=== PATIENT | male | born 1975 | race Caucasian/White ===

== ENCOUNTER 2017-05-18 11:59 | Inpatient (IN) | payer MEDICARE, MEDICAID ==
[~2017-05-18] VITALS: Ht 182.9 cm; Wt 100.7 kg
[2017-05-18] MEDS ORDERED: KEYT1SOL IV (12:11)
[2017-05-18] MEDS ORDERED: ACETAMINOPHEN TAB 650MG DOSE (2X325MG) PO ONE (12:30)
[2017-05-18] MEDS ORDERED: NS 1,000 ML IV ONE (12:30)
[2017-05-18 13:02] LABS: VENOUS BASE EXCESS 1.5 (-2.0-2.0); VENOUS O2 SATURATION 90.5 % (60.0-80.0); VENOUS PARTIAL PRESSURE CO2 40.1 mmHg (38.0-50.0); VENOUS PARTIAL PRESSURE O2 54.9 mmHg (30.0-50.0); VENOUS STANDARD HCO3 25.6 MEQ/L; VENOUS TOTAL CO2 27.1 MEQ/L (24.0-28.0)
[2017-05-18 13:09] LABS: BASO # 0.1 K/mm3 (0.0-0.2); BASO % 0.7 % (0.0-1.0); EOS # 0.1 K/mm3 (0.0-0.50); EOS % 0.6 % (0.0-3.0); LARGE UNSTAINED CELL # 0.2 K/mm3 (0.0-0.4); LARGE UNSTAINED CELL % 1.1 % (0.0-4.0); LYMPH # 1.4 K/mm3 (1.5-4.5); LYMPH % 9.2 % (24.0-44.0); MEAN CORPUSCULAR HEMOGLOBIN 29.7 pg (27.0-33.0); MEAN CORPUSCULAR HGB CONC 34.5 g/dl (32.0-36.5); MEAN CORPUSCULAR VOLUME 85.9 fl (80.0-96.0); MONO # 1.1 K/mm3 (0.0-0.8); MONO % 7.6 % (0.0-5.0); NEUTROPHILS # 11.2 K/mm3 (1.8-7.7); NEUTROPHILS % 80.8 % (36.0-66.0); PLATELET COUNT, AUTOMATED 197 k/mm3 (150-450); RED CELL DISTRIBUTION WIDTH 12.6 % (11.5-14.5); WHITE BLOOD COUNT 13.8 K/mm3 (4.0-10.0)
[2017-05-18 13:12] LABS: INR 1.07
--- NOTE | 2017-05-18 13:19 | REP ---
Clinical: Sepsis . Comparison: 01/18/2008 . Findings: The mediastinum and cardiac silhouette are stable and within normal limits for portable technique. The lung holley are clear without acute consolidation, effusion, or pneumothorax. Skeletal structures are intact. Impression: No acute cardiopulmonary process appreciated. Signed by Kirit Rizzo MD 05/18/2017 01:10 P
[2017-05-18 13:26] LABS: ALBUMIN 3.9 GM/DL (3.2-5.2); ALBUMIN/GLOBULIN RATIO 0.91 (1.00-1.93); ALKALINE PHOSPHATASE 79 U/L (45-117); ALT/SGPT 54 U/L (12-78); AMYLASE 44 U/L (25-115); ANION GAP 9 MEQ/L (8-16); AST/SGOT 15 U/L (15-37); BILIRUBIN,DIRECT 0.1 MG/DL (0.0-0.2); BILIRUBIN,TOTAL 0.6 MG/DL (0.2-1.0); BLOOD UREA NITROGEN 9 MG/DL (7-18); CARBON DIOXIDE LEVEL 26 MEQ/L (21-32); CHLORIDE LEVEL 103 MEQ/L (98-107); CREATININE FOR GFR 0.82 MG/DL (0.70-1.30); GLOMERULAR FILTRATION RATE > 60.0 (>60); GLUCOSE, FASTING 117 MG/DL (70-105); POTASSIUM SERUM 3.6 MEQ/L (3.5-5.1); SODIUM LEVEL 138 MEQ/L (136-145); TOTAL PROTEIN 8.2 GM/DL (6.4-8.2)
[2017-05-18] MEDS ORDERED: CEFEPIME HCL 2 GM in D5W MINI-BAG PLUS 50 ML IV ONE (14:00)
[2017-05-18] MEDS ORDERED: ONDANSETRON 4MG/2ML VIAL (J2405) IV PRN (16:00)
[2017-05-18] MEDS ORDERED: VANCOMYCIN HCL 750 MG, VIAL MATE ADAPTER 1 EACH in D5W 250 ML IV SCH (16:00)
--- NOTE | 2017-05-18 16:17 | HPEPDOC ---
General Date of Admission 05/18/17 Primary Care Physician: VERONA CALVILLO MD Attending Physician: ROSSI DONOHUE MD Chief Complaint The patient is a 42-year-old male admitted with a reason for visit of FEVER. History of Present Illness 42-year-old male with past medical history of glioblastoma multiforme brain cancer status post 2 craniotomies in 2011, radiation and chemotherapy. The patient was found to have a recurrence of the cancer in September 2016, and is currently on Keytruda therapy. He follows with Kole Goff and Dr. Correa for his Oncologic care. The patient presented to the ER with a chief complaint of fevers, myalgias, arthralgias, cough, and generalized weakness over the last 24 hours. The patient denies any sick contacts, or any complaints of chest pain, palpitations, shortness of breath, abdominal pain, or any nausea/vomiting/ diarrhea. He reports that his symptoms started all of a sudden last night, and denies any other acute complaints. In the ER, the patient was noted to be tachycardic with an elevated white blood cell count. Given the patient's history of cancer, and current use of immunosuppressive therapy, the patient's oncologist Dr. Correa recommended admission for infectious workup and empiric antibiotic therapy. Home Medications Scheduled (Keytruda) 50 Mg Arlene, 50 MG IV ASDIRECTED, (Reported) EVERY 3 WEEKS Allergies Coded Allergies: Temozolomide (Verified Allergy, Unknown, 05/18/17) Past Medical History Medical History As noted in HPI Surgical History BRAIN TUMOR REMOVED - GLIOBLASTOMA 10/2011 BRAIN TUMOR REMOVED - GLIOBLASTOMA 04/2012 As per PCP charting Social History * Smoker: former Smoker Alcohol: Denies Drugs: denies Review of Symptoms Other systems 10 point review of systems negative unless otherwise specified in HPI. Physical Examination General Exam: Positive: Alert, Cooperative, No Acute Distress ENT Exam: Positive: Atraumatic, Mucous membr. moist/pink Neck Exam: Negative: JVD Chest Exam: Positive: Clear to auscultation, Normal air movement Heart Exam: Positive: Tachycardic, Normal S1, Normal S2 Telemetry: Positive: Sinus Abdomen Exam: Positive: Soft, Negative: Tenderness Extremity Exam: Negative: Tenderness, Swelling Psych Exam: Positive: Oriented x 3 Vital Signs Vital Signs Date Time Temp Pulse Resp B/P (MAP) Pulse Ox O2 Delivery O2 Flow Rate FiO2 05/18/17 15:39 05/18/17 12:01 100.5 129 16 96 Room Air Laboratory Data Labs 24H Laboratory Tests 2 05/18/17 12:53: White Blood Count 13.8H, Red Blood Count 5.05, Hemoglobin 15.0, Hematocrit 43.4 , Mean Corpuscular Volume 85.9, Mean Corpuscular Hemoglobin 29.7, Mean Corpuscular Hemoglobin Concent 34.5, Red Cell Distribution Width 12.6, Platelet Count 197, Neutrophils (%) (Auto) 80.8H, Lymphocytes (%) (Auto) 9.2L, Monocytes (%) (Auto) 7.6H, Eosinophils (%) (Auto) 0.6, Basophils (%) (Auto) 0.7, Neutrophils # (Auto) 11.2H, Lymphocytes # (Auto) 1.4L, Monocytes # (Auto) 1.1H, Eosinophils # (Auto) 0.1, Basophils # (Auto) 0.1, Large Unclassified Cells % 1.1 , Large Unclassified Cells # 0.2, Prothrombin Time 14.0, Prothromb Time International Ratio 1.07, Activated Partial Thromboplast Time 28.6, Blood Gas Bicarbonate Standard 25.6, Venous Blood pH 7.428, Venous Blood Partial Pressure CO2 40.1, Venous Blood Partial Pressure O2 54.9H, Venous Blood Total Carbon Dioxide 27.1, Venous Blood HCO3 25.9, Venous Blood Oxygen Saturation 90.5H, Venous Blood Base Excess 1.5, Anion Gap 9, Glomerular Filtration Rate > 60.0, Lactic Acid Level 2.0, Calcium Level 9.0, Aspartate Amino Transf (AST/SGOT) 15, Alanine Aminotransferase (ALT/SGPT) 54, Alkaline Phosphatase 79, Total Bilirubin 0.6, Direct Bilirubin 0.1, Total Creatine Kinase 66, Creatine Kinase MB 1.0, Creatine Kinase MB Relative Index 1.51, Troponin I < 0.02, C-Reactive Protein, Quantitative 9.21H, Total Protein 8.2, Albumin 3.9, Albumin/Globulin Ratio 0.91L, Amylase Level 44 05/18/17 14:26: Urine Appearance CLEAR, Urine Color STRAW, Urine pH 6.0, Urine Specific [place] 1.005, Urine Protein NEGATIVE, Urine Glucose (UA) 1+H, Urine Ketones NEGATIVE, Urine Urobilinogen 0.2, Urine Bilirubin NEGATIVE, Urine Leukocyte Esterase NEGATIVE, Urine Blood 2+H, Urine Nitrite NEGATIVE, Urine WBC (Auto) 1, Urine RBC (Auto) 5H, Urine Hyaline Casts (Auto) 0, Urine Bacteria (Auto) NEGATIVE, Urine Squamous Epithelial Cells 0, Urine Sperm (Auto) CBC/BMP Laboratory Tests 05/18/17 12:53 Red Blood Count 5.05, Mean Corpuscular Volume 85.9, Mean Corpuscular Hemoglobin 29.7, Mean Corpuscular Hemoglobin Concent 34.5, Red Cell Distribution Width 12.6 , Neutrophils (%) (Auto) 80.8 H, Lymphocytes (%) (Auto) 9.2 L, Monocytes (%) ( Auto) 7.6 H, Eosinophils (%) (Auto) 0.6, Basophils (%) (Auto) 0.7, Neutrophils # (Auto) 11.2 H, Lymphocytes # (Auto) 1.4 L, Monocytes # (Auto) 1.1 H, Eosinophils # (Auto) 0.1, Basophils # (Auto) 0.1 Microbiology Microbiology 05/18/17 Blood Culture, Received Pending 05/18/17 Blood Culture, Received Pending 05/18/17 Urine Culture, Received Pending Plan / VTE VTE Prophylaxis Ordered?: Yes Plan Plan SIRS 2/2 Unclear Etiology in a patient with a Hx of Glioblastoma Multiforme on immunosuppressant therapy Patient noted to have an elevated white blood cell count 13.8 K, and tachycardic with a heart rate in the 120s in the ER Chest x-ray with no acute findings However, the patient is complaining of a nonproductive cough--we will order a CT scan of the chest for further delineation of possible underlying pneumonia We will order respiratory panel to rule out possible underlying viral etiology Blood cultures, sputum culture, and urine culture also ordered We will empirically cover the patient with vancomycin and cefepime We will continue to monitor the patient's progress Hx of Glioblastoma Multiforme s/p 2 Craniotomies in 2011 s/p Chemo and Radiation Recurrence of Cancer noted in September 2016 as per patient On Keytruda immunosupressant therapy as o/p Follows with Dr. Sunny Mike DVT Prophylaxis Lovenox DIONNE GUERIN MD May 18, 2017 16:17
--- NOTE | 2017-05-18 16:35 | REP ---
Clinical: Sepsis. Technique: Axial noncontrast images from the thoracic inlet to the upper abdomen with coronal and sagittal re-formations. Findings: Subtle left upper lobe alveolar infiltrates and small medial left upper lobe consolidation with associated peribronchial thickening is consistent with bronchitis and small forming pneumonia. The remainder of lung holley are well-aerated and clear. No pleural effusion. No pneumothorax. Minimally prominent mediastinal lymph nodes are likely reactive measuring up to 11 mm short axis diameter. Mediastinum demonstrates normal thoracic aorta, heart/pericardium and vasculature by noncontrast evaluation. Surrounding musculoskeletal structures are intact. Impression: Findings compatible with left upper lobe bronchitis and early pneumonia. Signed by Kirit Rizzo MD 05/18/2017 04:25 P
--- NOTE | 2017-05-18 17:16 | PHACANCOPD ---
PHARMACY VANCOMYCIN DOSING Pt Demographics Demographics Patient Age:42 , Weight:109.090 , Gender: male Adjusted Body Weight Date: 05/18/17, Adjusted Body Weight: [90.2] Kg Events Past 24 Hours Events Past 24 Hours: NO: Dialysis, Diuretic Therapy, Change in CrCl, Fever, Elevation in WBC, Pending Diagnostics, Pending Procedures, Other Vancomycin Vancomycin indication: IMMUNOCOMPROMISED, FEVER Vancomycin Target Ranges: 15-20 mcg/ml Vancomycin Load Y/N: Yes Load Dose Date Time Vancomycin Load Dose: 2000MG Date: 05/18/17 Time: 18:00 Vancomycin Dose Date: 05/18/17. Current Vancomycin Dose: [1G IV Q8H ] Intermittent Dosing?: No Labs Labs Item Value Date Time White Blood Count 13.8 K/mm3 H 05/18/17 1253 C-Reactive Protein, Quantitative 9.21 MG/DL H 05/18/17 1253 Creatinine 0.82 MG/DL 05/18/17 1253 Micro Microbiology 05/18/17 Blood Culture, Received Pending 05/18/17 Blood Culture, Received Pending 05/18/17 Urine Culture, Received Pending Creatinine Clearance Date:05/18/17. Creatinine Clearance: [127.5ML/MIN]. Pending Labs URINE AND BLOOD CULTURE PENDING Assessment and Plan Maintaining Current Dose?: Yes Reason for dose change: No Dose Change Pharmacist Note Pharmacist Note Date: 05/18/17. Pharmacist note:PT is a 42 year old male being treated with immunocompromised fever goal trough 15-20mcg/ml. Pt does not have a history of vancomycin therapy here at [facility] in the past. To achieve goal a 2g loading dose will be started 05/18/17 @18:00 and maintenance therapy will consist of 1g iv every 8 hours starting 05/19 @02:00. We will continue to monitor and adjust dose as needed. JARRET PALMA PHARMACY May 18, 2017 17:16
[2017-05-18] MEDS: ACETAMINOPHEN TAB 650MG DOSE (2X325MG) PO PRN ×2 (17:36→21:14)
[2017-05-18] MEDS: VANCOMYCIN HCL 1,000 MG, VIAL MATE ADAPTER 1 EACH in D5W 250 ML IV SCH (18:00)
--- NOTE | 2017-05-18 18:24 | ECGEPIP ---
Stationary ECG Study [facility] - ED Test Date: 2017-05-18 Pat Name: GOLDEN APPLE Department: Room: - Gender: M Pinion Staker: JT : 1975 Requested By: Brynn John Order Number: [id number] Reading MD: Brynn John Measurements Intervals [place] Rate: 116 P: 41 MO: 100 QRS: 17 QRSD: 110 T: 21 QT: 304 QTc: 423 Interpretive Statements SINUS TACHYCARDIA WITH SHORT MO INTERVAL POSSIBLE LEFT ATRIAL ENLARGEMENT POSSIBLE INFERIOR MYOCARDIAL INFARCTION, PROBABLY OLD ABNORMAL RHYTHM ECG NO PRIOR FOR COMPARISON Electronically Signed On 05-18-2017 18:24:27 EDT by Brynn John
[2017-05-18] MEDS ORDERED: VANCOMYCIN HCL 1,000 MG, VIAL MATE ADAPTER 1 EACH in D5W 250 ML IV ONE (19:00)
[2017-05-18] MEDS: NS 1,000 ML IV SCH (19:44)
[2017-05-18 22:25] VITALS: BP 144/85
[2017-05-18] MEDS ORDERED: IBUPROFEN 600 MG TAB PO PRN (22:30)
[2017-05-18] MEDS: IBUPROFEN 600 MG TAB PO PRN (22:35)
[2017-05-19] MEDS: VANCOMYCIN HCL 1,000 MG, VIAL MATE ADAPTER 1 EACH in D5W 250 ML IV SCH ×3 (01:41→17:33)
[2017-05-19] MEDS: NS 1,000 ML IV SCH (01:41)
[2017-05-19] MEDS ORDERED: CEFEPIME HCL 1 GM in D5W MINI-BAG PLUS 50 ML IV SCH (02:00)
[2017-05-19] MEDS: CEFEPIME HCL 1 GM in D5W MINI-BAG PLUS 50 ML IV SCH ×2 (02:35→13:52)
[2017-05-19 06:00] VITALS: BP 166/74
[2017-05-19 06:37] LABS: BASO # 0.1 K/mm3 (0.0-0.2); BASO % 0.7 % (0.0-1.0); EOS # 0.2 K/mm3 (0.0-0.50); EOS % 2.4 % (0.0-3.0); LARGE UNSTAINED CELL # 0.1 K/mm3 (0.0-0.4); LARGE UNSTAINED CELL % 1.3 % (0.0-4.0); LYMPH # 1.6 K/mm3 (1.5-4.5); LYMPH % 14.8 % (24.0-44.0); MEAN CORPUSCULAR HEMOGLOBIN 29.4 pg (27.0-33.0); MEAN CORPUSCULAR HGB CONC 33.9 g/dl (32.0-36.5); MEAN CORPUSCULAR VOLUME 86.6 fl (80.0-96.0); MONO # 0.7 K/mm3 (0.0-0.8); MONO % 7.2 % (0.0-5.0); NEUTROPHILS # 7.2 K/mm3 (1.8-7.7); NEUTROPHILS % 73.6 % (36.0-66.0); PLATELET COUNT, AUTOMATED 174 k/mm3 (150-450); RED CELL DISTRIBUTION WIDTH 12.7 % (11.5-14.5); WHITE BLOOD COUNT 9.8 K/mm3 (4.0-10.0)
[2017-05-19 06:54] LABS: ALBUMIN 3.1 GM/DL (3.2-5.2); ALBUMIN/GLOBULIN RATIO 0.76 (1.00-1.93); ALKALINE PHOSPHATASE 62 U/L (45-117); ALT/SGPT 38 U/L (12-78); ANION GAP 6 MEQ/L (8-16); AST/SGOT 11 U/L (15-37); BILIRUBIN,TOTAL 0.5 MG/DL (0.2-1.0); BLOOD UREA NITROGEN 10 MG/DL (7-18); CALCIUM LEVEL 8.4 MG/DL (8.5-10.1); CARBON DIOXIDE LEVEL 27 MEQ/L (21-32); CHLORIDE LEVEL 107 MEQ/L (98-107); CREATININE FOR GFR 0.69 MG/DL (0.70-1.30); GLOMERULAR FILTRATION RATE > 60.0 (>60); GLUCOSE, FASTING 109 MG/DL (70-105); MAGNESIUM LEVEL 2.2 MG/DL (1.8-2.4); POTASSIUM SERUM 3.5 MEQ/L (3.5-5.1); SODIUM LEVEL 140 MEQ/L (136-145); TOTAL PROTEIN 7.2 GM/DL (6.4-8.2)
--- NOTE | 2017-05-19 09:11 | IPNPDOC ---
Subjective Date Seen The patient was seen on 05/19/17. Subjective Chief Complaint/HPI The patient is a 42-year-old male admitted with a reason for visit of FEVER. Events since last encounter continues to have cough with yellowish expectoration , had spike of fever with a t max of 101.9 last night , no joint pain today , no diarrhea or abdominal pain , no nausea or vomiting. Objective Physical Examination General Exam: Positive: Alert, Cooperative, No Acute Distress ENT Exam: Positive: Atraumatic, Mucous membr. moist/pink Neck Exam: Negative: JVD Chest Exam: Positive: Clear to auscultation, Normal air movement Heart Exam: Positive: Tachycardic, Normal S1, Normal S2 Telemetry: Positive: Sinus Abdomen Exam: Positive: Soft, Negative: Tenderness Extremity Exam: Negative: Tenderness, Swelling Psych Exam: Positive: Oriented x 3 Assessment /Plan Problems (1) Pneumonia Status: Acute Problem Text: continue cefepime and vanco awaiting blood cultures. (2) Glioblastoma multiforme Status: Chronic Problem Text: diagnosed in 2011 treated then by surgery , RT , CT recurrence in sep 2016 on ketruda every 3 weeks, last dose on 05/08/17 Plan/VTE VTE Prophylaxis Ordered?: Yes VS, I&O, 24H, Fishbone Vital Signs/I&O Vital Signs Date Time Temp Pulse Resp B/P (MAP) Pulse Ox O2 Delivery O2 Flow Rate FiO2 05/19/17 06:00 98.9 94 18 166/74 (104) 97 05/18/17 22:25 Room Air I&O- Last 24 Hours up to 6 AM 05/19/17 06:00 Intake Total 2460 ml Output Total 350 ml Balance 2110 ml Laboratory Data 24H LABS Laboratory Tests 2 05/18/17 12:53: White Blood Count 13.8H, Red Blood Count 5.05, Hemoglobin 15.0, Hematocrit 43.4 , Mean Corpuscular Volume 85.9, Mean Corpuscular Hemoglobin 29.7, Mean Corpuscular Hemoglobin Concent 34.5, Red Cell Distribution Width 12.6, Platelet Count 197, Neutrophils (%) (Auto) 80.8H, Lymphocytes (%) (Auto) 9.2L, Monocytes (%) (Auto) 7.6H, Eosinophils (%) (Auto) 0.6, Basophils (%) (Auto) 0.7, Neutrophils # (Auto) 11.2H, Lymphocytes # (Auto) 1.4L, Monocytes # (Auto) 1.1H, Eosinophils # (Auto) 0.1, Basophils # (Auto) 0.1, Large Unclassified Cells % 1.1 , Large Unclassified Cells # 0.2, Prothrombin Time 14.0, Prothromb Time International Ratio 1.07, Activated Partial Thromboplast Time 28.6, Blood Gas Bicarbonate Standard 25.6, Venous Blood pH 7.428, Venous Blood Partial Pressure CO2 40.1, Venous Blood Partial Pressure O2 54.9H, Venous Blood Total Carbon Dioxide 27.1, Venous Blood HCO3 25.9, Venous Blood Oxygen Saturation 90.5H, Venous Blood Base Excess 1.5, Anion Gap 9, Glomerular Filtration Rate > 60.0, Lactic Acid Level 2.0, Calcium Level 9.0, Aspartate Amino Transf (AST/SGOT) 15, Alanine Aminotransferase (ALT/SGPT) 54, Alkaline Phosphatase 79, Total Bilirubin 0.6, Direct Bilirubin 0.1, Total Creatine Kinase 66, Creatine Kinase MB 1.0, Creatine Kinase MB Relative Index 1.51, Troponin I < 0.02, C-Reactive Protein, Quantitative 9.21H, Total Protein 8.2, Albumin 3.9, Albumin/Globulin Ratio 0.91L, Amylase Level 44 05/18/17 14:26: Urine Appearance CLEAR, Urine Color STRAW, Urine pH 6.0, Urine Specific [place] 1.005, Urine Protein NEGATIVE, Urine Glucose (UA) 1+H, Urine Ketones NEGATIVE, Urine Urobilinogen 0.2, Urine Bilirubin NEGATIVE, Urine Leukocyte Esterase NEGATIVE, Urine Blood 2+H, Urine Nitrite NEGATIVE, Urine WBC (Auto) 1, Urine RBC (Auto) 5H, Urine Hyaline Casts (Auto) 0, Urine Bacteria (Auto) NEGATIVE, Urine Squamous Epithelial Cells 0, Urine Sperm (Auto) 05/18/17 16:45: 05/19/17 06:17: White Blood Count 9.8, Red Blood Count 4.53, Hemoglobin 13.3L, Hematocrit 39.3L , Mean Corpuscular Volume 86.6, Mean Corpuscular Hemoglobin 29.4, Mean Corpuscular Hemoglobin Concent 33.9, Red Cell Distribution Width 12.7, Platelet Count 174, Neutrophils (%) (Auto) 73.6H, Lymphocytes (%) (Auto) 14.8L, Monocytes (%) (Auto) 7.2H, Eosinophils (%) (Auto) 2.4, Basophils (%) (Auto) 0.7 , Neutrophils # (Auto) 7.2, Lymphocytes # (Auto) 1.6, Monocytes # (Auto) 0.7, Eosinophils # (Auto) 0.2, Basophils # (Auto) 0.1, Large Unclassified Cells % 1.3 , Large Unclassified Cells # 0.1, Anion Gap 6L, Glomerular Filtration Rate > 60.0, Calcium Level 8.4L, Aspartate Amino Transf (AST/SGOT) 11L, Alanine Aminotransferase (ALT/SGPT) 38, Alkaline Phosphatase 62, Total Bilirubin 0.5, Total Protein 7.2, Albumin 3.1#L, Albumin/Globulin Ratio 0.76L, Blood Urea Nitrogen 10, Creatinine 0.69L, Sodium Level 140, Potassium Level 3.5, Chloride Level 107, Carbon Dioxide Level 27, Magnesium Level 2.2 CBC/BMP Laboratory Tests 05/18/17 12:53 Red Blood Count 5.05, Mean Corpuscular Volume 85.9, Mean Corpuscular Hemoglobin 29.7, Mean Corpuscular Hemoglobin Concent 34.5, Red Cell Distribution Width 12.6 , Neutrophils (%) (Auto) 80.8 H, Lymphocytes (%) (Auto) 9.2 L, Monocytes (%) ( Auto) 7.6 H, Eosinophils (%) (Auto) 0.6, Basophils (%) (Auto) 0.7, Neutrophils # (Auto) 11.2 H, Lymphocytes # (Auto) 1.4 L, Monocytes # (Auto) 1.1 H, Eosinophils # (Auto) 0.1, Basophils # (Auto) 0.1 05/19/17 06:17 Red Blood Count 4.53, Mean Corpuscular Volume 86.6, Mean Corpuscular Hemoglobin 29.4, Mean Corpuscular Hemoglobin Concent 33.9, Red Cell Distribution Width 12.7 , Neutrophils (%) (Auto) 73.6 H, Lymphocytes (%) (Auto) 14.8 L, Monocytes (%) ( Auto) 7.2 H, Eosinophils (%) (Auto) 2.4, Basophils (%) (Auto) 0.7, Neutrophils # (Auto) 7.2, Lymphocytes # (Auto) 1.6, Monocytes # (Auto) 0.7, Eosinophils # ( Auto) 0.2, Basophils # (Auto) 0.1, Calcium Level 8.4 L, Aspartate Amino Transf ( AST/SGOT) 11 L, Alanine Aminotransferase (ALT/SGPT) 38, Alkaline Phosphatase 62 , Total Bilirubin 0.5, Total Protein 7.2, Albumin 3.1 #L Microbiology Microbiology 05/18/17 Blood Culture, Received Pending 05/18/17 Blood Culture, Received Pending 05/18/17 Gram Stain, Received Pending 05/18/17 Sputum Culture, Received Pending 05/18/17 Respiratory Virus Panel (PCR) (JOANNA) - Final, Complete 05/18/17 MRSA Screen, Received Pending 05/18/17 Urine Culture, Received Pending ROSSI DONOHUE MD May 19, 2017 09:11
[2017-05-19] MEDS: ACETAMINOPHEN TAB 650MG DOSE (2X325MG) PO PRN (13:52)
[2017-05-19 14:00] VITALS: BP 135/78
[2017-05-19] MEDS: IBUPROFEN 600 MG TAB PO PRN (17:34)
[2017-05-19] MEDS: ENOXAPARIN 40 MG/0.4 ML SYRINGE (J1650) SC SCH (20:48)
[2017-05-19 22:00] VITALS: BP 123/75
[2017-05-20] MEDS: CEFEPIME HCL 1 GM in D5W MINI-BAG PLUS 50 ML IV SCH ×2 (02:09→14:57)
[2017-05-20] MEDS: VANCOMYCIN HCL 1,000 MG, VIAL MATE ADAPTER 1 EACH in D5W 250 ML IV SCH ×3 (02:56→18:14)
[2017-05-20 06:00] VITALS: BP 108/53
[2017-05-20 07:50] VITALS: BP 144/86
[2017-05-20 09:40] LABS: BASO # 0.1 K/mm3 (0.0-0.2); BASO % 0.7 % (0.0-1.0); EOS # 0.3 K/mm3 (0.0-0.50); EOS % 3.7 % (0.0-3.0); LARGE UNSTAINED CELL # 0.2 K/mm3 (0.0-0.4); LARGE UNSTAINED CELL % 2.7 % (0.0-4.0); LYMPH # 1.5 K/mm3 (1.5-4.5); LYMPH % 17.2 % (24.0-44.0); MEAN CORPUSCULAR HEMOGLOBIN 29.2 pg (27.0-33.0); MEAN CORPUSCULAR HGB CONC 33.7 g/dl (32.0-36.5); MEAN CORPUSCULAR VOLUME 86.6 fl (80.0-96.0); MONO # 0.4 K/mm3 (0.0-0.8); MONO % 5.1 % (0.0-5.0); NEUTROPHILS # 6.1 K/mm3 (1.8-7.7); NEUTROPHILS % 70.6 % (36.0-66.0); PLATELET COUNT, AUTOMATED 194 k/mm3 (150-450); RED CELL DISTRIBUTION WIDTH 12.6 % (11.5-14.5); WHITE BLOOD COUNT 8.6 K/mm3 (4.0-10.0)
[2017-05-20 10:14] LABS: ALBUMIN 3.1 GM/DL (3.2-5.2); ALBUMIN/GLOBULIN RATIO 0.76 (1.00-1.93); ALKALINE PHOSPHATASE 60 U/L (45-117); ALT/SGPT 43 U/L (12-78); ANION GAP 9 MEQ/L (8-16); AST/SGOT 20 U/L (15-37); BILIRUBIN,TOTAL 0.3 MG/DL (0.2-1.0); BLOOD UREA NITROGEN 8 MG/DL (7-18); CALCIUM LEVEL 8.1 MG/DL (8.5-10.1); CARBON DIOXIDE LEVEL 25 MEQ/L (21-32); CHLORIDE LEVEL 107 MEQ/L (98-107); CREATININE FOR GFR 0.74 MG/DL (0.70-1.30); GLOMERULAR FILTRATION RATE > 60.0 (>60); GLUCOSE, FASTING 155 MG/DL (70-105); POTASSIUM SERUM 3.9 MEQ/L (3.5-5.1); SODIUM LEVEL 141 MEQ/L (136-145); TOTAL PROTEIN 7.2 GM/DL (6.4-8.2)
[2017-05-20] MEDS ORDERED: VANCOMYCIN HCL 1,000 MG, VIAL MATE ADAPTER 1 EACH in D5W 250 ML IV ONE (11:00)
[2017-05-20 14:00] VITALS: BP 157/96
[2017-05-20 15:00] VITALS: BP 138/94
[2017-05-20] MEDS: ACETAMINOPHEN TAB 650MG DOSE (2X325MG) PO PRN ×2 (15:39→22:01)
--- NOTE | 2017-05-20 15:46 | PHACANCOPD ---
PHARMACY VANCOMYCIN DOSING Pt Demographics Demographics Patient Age:42 , Weight:101.000 , Gender: male Adjusted Body Weight Date: 05/18/17, Adjusted Body Weight: [90.2] Kg Events Past 24 Hours Events Past 24 Hours: YES: Fever, NO: Dialysis, Diuretic Therapy, Change in CrCl, Elevation in WBC, Pending Diagnostics, Pending Procedures, Other Vancomycin Vancomycin indication: IMMUNOCOMPROMISED, FEVER Vancomycin Target Ranges: 15-20 mcg/ml Vancomycin Load Y/N: Yes Load Dose Date Time Vancomycin Load Dose: 2000MG Date: 05/18/17 Time: 18:00 Vancomycin Dose Date: 05/20/17. Current Vancomycin Dose: [1gm IV q8h, extra 1gm @11] Date: 05/18/17. Current Vancomycin Dose: [1G IV Q8H ] Intermittent Dosing?: No Labs Labs Item Value Date Time White Blood Count 9.8 K/mm3 05/19/17616 White Blood Count 8.6 K/mm3 05/20/1727 Creatinine 0.69 MG/DL L 05/19/17616 Creatinine 0.74 MG/DL 05/20/17 0927 Vancomycin Level Trough 9.0 UG/ML L 05/20/1727 Vital Signs Label Value Date Time Patient Temperature 100.0 degrees F 05/20/17 1400 Temperature Source Temporal 05/20/17 1400 Patient Temperature 101.4 degrees F 05/20/17 1500 Temperature Source Temporal 05/20/17 1500 Micro Microbiology 05/18/17 Blood Culture - Preliminary, Resulted No Growth after 48 hours. All Specime... 05/18/17 Blood Culture - Preliminary, Resulted No Growth after 48 hours. All Specime... 05/18/17 Gram Stain - Final, Complete 05/18/17 Sputum Culture - Final, Complete 05/18/17 Respiratory Virus Panel (PCR) (JOANNA) - Final, Complete 05/18/17 MRSA Screen - Final, Complete 05/18/17 Urine Culture - Final, Complete Creatinine Clearance Date:05/18/17. Creatinine Clearance: [127.5ML/MIN]. Pending Labs URINE AND BLOOD CULTURE PENDING Assessment and Plan Maintaining Current Dose?: Yes Reason for dose change: Trough too low Pharmacist Note Pharmacist Note 05/20: Patient's trough came back at 9 this morning. He was continued on Vancomycin 1gm IV q8h and given an extra 1gm at 11am to help increase his trough. Patient is still experiencing fevers and having a productive cough with yellow sputum. We will continue to monitor and make adjustments as necessary. Date: 05/18/17. Pharmacist note:PT is a 42 year old male being treated with immunocompromised fever goal trough 15-20mcg/ml. Pt does not have a history of vancomycin therapy here at [facility] in the past. To achieve goal a 2g loading dose will be started 05/18/17 @18:00 and maintenance therapy will consist of 1g iv every 8 hours starting 05/19 @02:00. We will continue to monitor and adjust dose as needed. SHERI NESS PHARMACY May 20, 2017 15:46
--- NOTE | 2017-05-20 16:34 | IPNPDOC ---
Date Seen The patient was seen on 05/20/17. Progress Note Hospitalist Progress Note Subjective: Patient states that he is feeling much better Objective: Physical Exam: Vitals: Vital Sign - Last 24 Hours 05/19/17 05/20/17 05/20/17 05/20/17 22:00 06:00 07:50 08:00 Temp 98.0 98.6 99.6 Pulse 82 89 96 Resp 18 20 18 B/P (MAP) 123/75 (91) 108/53 (71) 144/86 (105) Pulse Ox 94 95 96 O2 Delivery Room Air Room Air Room Air Room Air 05/20/17 05/20/17 14:00 15:00 Temp 100.0 101.4 Pulse 116 100 Resp 18 18 B/P (MAP) 157/96 (116) 138/94 (109) Pulse Ox 96 97 O2 Delivery Room Air Room Air General: Awake, alert, no acute distress HEENT: Normocephalic, atraumatic CV: Regular rate and rhythm Lungs: Clear To auscultation bilaterally Abd: Soft, Nontender, nondistended Extremities: No peripheral edema Neuro: Alert And oriented 3 Psych: Normal mood and affect Labs and Imaging: Laboratory Tests 05/20/17 09:27 Red Blood Count 4.66, Mean Corpuscular Volume 86.6, Mean Corpuscular Hemoglobin 29.2, Mean Corpuscular Hemoglobin Concent 33.7, Red Cell Distribution Width 12.6 , Neutrophils (%) (Auto) 70.6 H, Lymphocytes (%) (Auto) 17.2 L, Monocytes (%) ( Auto) 5.1 H, Eosinophils (%) (Auto) 3.7 H, Basophils (%) (Auto) 0.7, Neutrophils # (Auto) 6.1, Lymphocytes # (Auto) 1.5, Monocytes # (Auto) 0.4, Eosinophils # (Auto) 0.3, Basophils # (Auto) 0.1, Calcium Level 8.1 L, Aspartate Amino Transf (AST/SGOT) 20, Alanine Aminotransferase (ALT/SGPT) 43, Alkaline Phosphatase 60, Total Bilirubin 0.3, Total Protein 7.2, Albumin 3.1 L Assessment and Plan: 42-year-old male with history of glioblastoma status post 2 craniotomies, as well as radiation and chemotherapy, who was found to have a recurrence of the cancer in September 2016 and is currently on Keytruda therapy who presented to the ER with fevers and cough and has been admitted with pneumonia. 1. Pneumonia in an immunosuppressed patient: The patient's WBC upon admission was 13.8, but this is not returned to within normal limits. CT of the chest shows concern for left upper lobe bronchitis and early pneumonia. The patient has continued to have intermittent fevers despite broad antibiotics of vancomycin and cefepime. At this time, we will continue vancomycin and cefepime. Blood cultures, urine cultures, sputum cultures, and respiratory virus panel have all been negative. Clinically, the patient appears to be doing well. 2. History of glioblastoma status post 2 craniotomies as well as radiation and chemotherapy, was found to have a recurrence in September 2016: The patient has been on Keytruda therapy at home, which we are currently holding in the setting of acute infection. DVT prophylaxis: Lovenox Dispo: pending resolution of fevers and ability to transfer to oral antibiotics [facility]O Vital Signs Date Time Temp Pulse Resp B/P (MAP) Pulse Ox O2 Delivery O2 Flow Rate FiO2 05/20/17 15:00 101.4 100 18 138/94 (109) 97 Room Air I&O- Last 24 Hours up to 6 AM 05/20/17 05:59 Intake Total 2530 ml Output Total 4250 ml Balance -1720 ml Laboratory Data 24H LABS Laboratory Tests 2 05/20/17 09:27: White Blood Count 8.6, Red Blood Count 4.66, Hemoglobin 13.6L, Hematocrit 40.4L , Mean Corpuscular Volume 86.6, Mean Corpuscular Hemoglobin 29.2, Mean Corpuscular Hemoglobin Concent 33.7, Red Cell Distribution Width 12.6, Platelet Count 194, Neutrophils (%) (Auto) 70.6H, Lymphocytes (%) (Auto) 17.2L, Monocytes (%) (Auto) 5.1H, Eosinophils (%) (Auto) 3.7H, Basophils (%) (Auto) 0.7 , Neutrophils # (Auto) 6.1, Lymphocytes # (Auto) 1.5, Monocytes # (Auto) 0.4, Eosinophils # (Auto) 0.3, Basophils # (Auto) 0.1, Large Unclassified Cells % 2.7 , Large Unclassified Cells # 0.2, Anion Gap 9, Glomerular Filtration Rate > 60.0 , Blood Urea Nitrogen 8, Creatinine 0.74, Sodium Level 141, Potassium Level 3.9 , Chloride Level 107, Carbon Dioxide Level 25, Calcium Level 8.1L, Aspartate Amino Transf (AST/SGOT) 20, Alanine Aminotransferase (ALT/SGPT) 43, Alkaline Phosphatase 60, Total Bilirubin 0.3, Total Protein 7.2, Albumin 3.1L, Albumin/ Globulin Ratio 0.76L, Vancomycin Level Trough 9.0L CBC/BMP Laboratory Tests 05/20/17 09:27 Red Blood Count 4.66, Mean Corpuscular Volume 86.6, Mean Corpuscular Hemoglobin 29.2, Mean Corpuscular Hemoglobin Concent 33.7, Red Cell Distribution Width 12.6 , Neutrophils (%) (Auto) 70.6 H, Lymphocytes (%) (Auto) 17.2 L, Monocytes (%) ( Auto) 5.1 H, Eosinophils (%) (Auto) 3.7 H, Basophils (%) (Auto) 0.7, Neutrophils # (Auto) 6.1, Lymphocytes # (Auto) 1.5, Monocytes # (Auto) 0.4, Eosinophils # (Auto) 0.3, Basophils # (Auto) 0.1, Calcium Level 8.1 L, Aspartate Amino Transf (AST/SGOT) 20, Alanine Aminotransferase (ALT/SGPT) 43, Alkaline Phosphatase 60, Total Bilirubin 0.3, Total Protein 7.2, Albumin 3.1 L Microbiology Microbiology 05/18/17 Blood Culture - Preliminary, Resulted No Growth after 48 hours. All Specime... 05/18/17 Blood Culture - Preliminary, Resulted No Growth after 48 hours. All Specime... 05/18/17 Gram Stain - Final, Complete 05/18/17 Sputum Culture - Final, Complete 05/18/17 Respiratory Virus Panel (PCR) (JOANNA) - Final, Complete 05/18/17 MRSA Screen - Final, Complete 05/18/17 Urine Culture - Final, Complete DAVID RHOADES May 20, 2017 16:34
[2017-05-20] MEDS ORDERED: MIRALAX *UNIT DOSE* 17GM PACKET PO PRN (16:45)
[2017-05-20] MEDS: ENOXAPARIN 40 MG/0.4 ML SYRINGE (J1650) SC SCH (21:45)
[2017-05-20 22:00] VITALS: BP 144/79
[2017-05-21] MEDS: CEFEPIME HCL 1 GM in D5W MINI-BAG PLUS 50 ML IV SCH (01:41)
[2017-05-21] MEDS: VANCOMYCIN HCL 1,000 MG, VIAL MATE ADAPTER 1 EACH in D5W 250 ML IV SCH ×3 (02:33→17:50)
[2017-05-21 06:00] VITALS: BP 126/68
[2017-05-21 06:26] LABS: BASO # 0.1 K/mm3 (0.0-0.2); BASO % 0.8 % (0.0-1.0); EOS # 0.4 K/mm3 (0.0-0.50); EOS % 5.5 % (0.0-3.0); LARGE UNSTAINED CELL # 0.2 K/mm3 (0.0-0.4); LARGE UNSTAINED CELL % 2.6 % (0.0-4.0); LYMPH # 1.9 K/mm3 (1.5-4.5); LYMPH % 21.4 % (24.0-44.0); MEAN CORPUSCULAR HEMOGLOBIN 29.4 pg (27.0-33.0); MEAN CORPUSCULAR HGB CONC 34.5 g/dl (32.0-36.5); MEAN CORPUSCULAR VOLUME 85.2 fl (80.0-96.0); MONO # 0.8 K/mm3 (0.0-0.8); MONO % 10.4 % (0.0-5.0); NEUTROPHILS # 4.7 K/mm3 (1.8-7.7); NEUTROPHILS % 59.2 % (36.0-66.0); PLATELET COUNT, AUTOMATED 200 k/mm3 (150-450); RED CELL DISTRIBUTION WIDTH 12.6 % (11.5-14.5); WHITE BLOOD COUNT 7.9 K/mm3 (4.0-10.0)
[2017-05-21 06:44] LABS: ALBUMIN 2.9 GM/DL (3.2-5.2); ALBUMIN/GLOBULIN RATIO 0.64 (1.00-1.93); ALKALINE PHOSPHATASE 64 U/L (45-117); ALT/SGPT 47 U/L (12-78); ANION GAP 9 MEQ/L (8-16); AST/SGOT 20 U/L (15-37); BILIRUBIN,TOTAL 0.4 MG/DL (0.2-1.0); BLOOD UREA NITROGEN 10 MG/DL (7-18); CALCIUM LEVEL 8.8 MG/DL (8.5-10.1); CARBON DIOXIDE LEVEL 27 MEQ/L (21-32); CHLORIDE LEVEL 107 MEQ/L (98-107); CREATININE FOR GFR 0.67 MG/DL (0.70-1.30); GLOMERULAR FILTRATION RATE > 60.0 (>60); GLUCOSE, FASTING 110 MG/DL (70-105); MAGNESIUM LEVEL 2.1 MG/DL (1.8-2.4); POTASSIUM SERUM 3.8 MEQ/L (3.5-5.1); SODIUM LEVEL 143 MEQ/L (136-145); TOTAL PROTEIN 7.4 GM/DL (6.4-8.2)
[2017-05-21] MEDS: MEROPENEM INJ 1 GM in D5W MINI-BAG PLUS 100 ML IV SCH ×2 (07:50→15:17)
[2017-05-21 08:30] VITALS: BP 125/83
--- NOTE | 2017-05-21 13:20 | IPNPDOC ---
Date Seen The patient was seen on 05/21/17. Progress Note Hospitalist Progress Note Subjective: Patient states that he is feeling well Objective: Physical Exam: Vitals: Vital Sign - Last 24 Hours 05/20/17 05/20/17 05/20/17 05/20/17 14:00 15:00 18:00 21:45 Temp 100.0 101.4 99.4 Pulse 116 100 Resp 18 18 B/P (MAP) 157/96 (116) 138/94 (109) Pulse Ox 96 97 O2 Delivery Room Air Room Air Room Air 05/20/17 05/20/17 05/21/17 05/21/17 22:00 22:30 06:00 08:30 Temp 101.1 99.5 99.3 99.7 Pulse 100 72 86 Resp 19 17 20 B/P (MAP) 144/79 (100) 126/68 (87) 125/83 (97) Pulse Ox 95 96 95 O2 Delivery Room Air Room Air Room Air 05/21/17 05/21/17 05/21/17 08:30 08:30 09:00 Temp 99.7 Pulse 86 Resp 20 B/P (MAP) 125/83 (97) Pulse Ox 95 O2 Delivery Room Air Room Air Room Air General: Awake, alert, no acute distress HEENT: Normocephalic, atraumatic CV: Regular rate and rhythm Lungs: Clear To auscultation bilaterally Abd: Soft, Nontender, nondistended Extremities: No peripheral edema Neuro: Alert And oriented 3 Psych: Normal mood and affect Labs and Imaging: Laboratory Tests 05/21/17 06:01 Red Blood Count 4.53, Mean Corpuscular Volume 85.2, Mean Corpuscular Hemoglobin 29.4, Mean Corpuscular Hemoglobin Concent 34.5, Red Cell Distribution Width 12.6 , Neutrophils (%) (Auto) 59.2, Lymphocytes (%) (Auto) 21.4 L, Monocytes (%) ( Auto) 10.4 H, Eosinophils (%) (Auto) 5.5 H, Basophils (%) (Auto) 0.8, Neutrophils # (Auto) 4.7, Lymphocytes # (Auto) 1.9, Monocytes # (Auto) 0.8, Eosinophils # (Auto) 0.4, Basophils # (Auto) 0.1, Calcium Level 8.8, Aspartate Amino Transf (AST/SGOT) 20, Alanine Aminotransferase (ALT/SGPT) 47, Alkaline Phosphatase 64, Total Bilirubin 0.4, Total Protein 7.4, Albumin 2.9 L Assessment and Plan: 42-year-old male with history of glioblastoma status post 2 craniotomies, as well as radiation and chemotherapy, who was found to have a recurrence of the cancer in September 2016 and is currently on Keytruda therapy who presented to the ER with fevers and cough and has been admitted with pneumonia. 1. Pneumonia in an immunosuppressed patient: The patient's WBC upon admission was 13.8, but this has now returned to within normal limits. CT of the chest shows concern for left upper lobe bronchitis and early pneumonia. The patient has continued to have intermittent fevers despite broad antibiotics of vancomycin and cefepime; will change to vanc and merrem. Blood cultures, urine cultures, sputum cultures, and respiratory virus panel have all been negative. Clinically, the patient appears to be doing well. 2. History of glioblastoma status post 2 craniotomies as well as radiation and chemotherapy, was found to have a recurrence in September 2016: The patient has been on Keytruda therapy at home, which we are currently holding in the setting of acute infection. DVT prophylaxis: Lovenox Dispo: pending resolution of fevers and ability to transfer to oral antibiotics VS, I&O, 24H, [place] Vital Signs/I&O Vital Signs Date Time Temp Pulse Resp B/P (MAP) Pulse Ox O2 Delivery O2 Flow Rate FiO2 05/21/17 09:00 Room Air 05/21/17 08:30 99.7 86 20 125/83 (97) 95 I&O- Last 24 Hours up to 6 AM 05/21/17 06:00 Intake Total 5570 ml Output Total 3400 ml Balance 2170 ml Laboratory Data 24H LABS Laboratory Tests 2 05/21/17 06:01: White Blood Count 7.9, Red Blood Count 4.53, Hemoglobin 13.3L, Hematocrit 38.6L , Mean Corpuscular Volume 85.2, Mean Corpuscular Hemoglobin 29.4, Mean Corpuscular Hemoglobin Concent 34.5, Red Cell Distribution Width 12.6, Platelet Count 200, Neutrophils (%) (Auto) 59.2, Lymphocytes (%) (Auto) 21.4L, Monocytes (%) (Auto) 10.4H, Eosinophils (%) (Auto) 5.5H, Basophils (%) (Auto) 0.8, Neutrophils # (Auto) 4.7, Lymphocytes # (Auto) 1.9, Monocytes # (Auto) 0.8, Eosinophils # (Auto) 0.4, Basophils # (Auto) 0.1, Large Unclassified Cells % 2.6 , Large Unclassified Cells # 0.2, Anion Gap 9, Glomerular Filtration Rate > 60.0 , Blood Urea Nitrogen 10, Creatinine 0.67L, Sodium Level 143, Potassium Level 3.8, Chloride Level 107, Carbon Dioxide Level 27, Calcium Level 8.8, Aspartate Amino Transf (AST/SGOT) 20, Alanine Aminotransferase (ALT/SGPT) 47, Alkaline Phosphatase 64, Total Bilirubin 0.4, Total Protein 7.4, Albumin 2.9L, Magnesium Level 2.1, C-Reactive Protein, Quantitative 11.90H, Albumin/Globulin Ratio 0.64L CBC/BMP Laboratory Tests 05/21/17 06:01 Red Blood Count 4.53, Mean Corpuscular Volume 85.2, Mean Corpuscular Hemoglobin 29.4, Mean Corpuscular Hemoglobin Concent 34.5, Red Cell Distribution Width 12.6 , Neutrophils (%) (Auto) 59.2, Lymphocytes (%) (Auto) 21.4 L, Monocytes (%) ( Auto) 10.4 H, Eosinophils (%) (Auto) 5.5 H, Basophils (%) (Auto) 0.8, Neutrophils # (Auto) 4.7, Lymphocytes # (Auto) 1.9, Monocytes # (Auto) 0.8, Eosinophils # (Auto) 0.4, Basophils # (Auto) 0.1, Calcium Level 8.8, Aspartate Amino Transf (AST/SGOT) 20, Alanine Aminotransferase (ALT/SGPT) 47, Alkaline Phosphatase 64, Total Bilirubin 0.4, Total Protein 7.4, Albumin 2.9 L Microbiology Microbiology 05/18/17 Blood Culture - Preliminary, Resulted No Growth after 48 hours. All Specime... 05/18/17 Blood Culture - Preliminary, Resulted No Growth after 72 hours. All specime... 05/18/17 Gram Stain - Final, Complete 05/18/17 Sputum Culture - Final, Complete 05/18/17 Respiratory Virus Panel (PCR) ([facility]NA) - Final, Complete 05/18/17 MRSA Screen - Final, Complete 05/18/17 Urine Culture - Final, Complete DAVID RHOADES May 21, 2017 13:20
[2017-05-21 14:09] VITALS: BP 129/81
[2017-05-21 14:14] LABS: ORGANISM ID Not indicated. (.); SPECIMEN SOURCE Urine (.)
[2017-05-21] MEDS ORDERED: VANCOMYCIN HCL 1,000 MG, VIAL MATE ADAPTER 1 EACH in D5W 250 ML IV ONE (19:00)
--- NOTE | 2017-05-21 20:44 | PHACANCOPD ---
PHARMACY VANCOMYCIN DOSING Pt Demographics Demographics Patient Age:42 , Weight:101.200 , Gender: male Adjusted Body Weight Date: 05/18/17, Adjusted Body Weight: [90.2] Kg Events Past 24 Hours Events Past 24 Hours: YES: Fever, NO: Dialysis, Diuretic Therapy, Change in CrCl, Elevation in WBC, Pending Diagnostics, Pending Procedures, Other Vancomycin Vancomycin indication: IMMUNOCOMPROMISED, FEVER Vancomycin Target Ranges: 15-20 mcg/ml Vancomycin Load Y/N: Yes Load Dose Date Time Vancomycin Load Dose: 2000MG Date: 05/18/17 Time: 18:00 Vancomycin Dose Date: 05/21/17. Current Vancomycin Dose: [1GM IV q8h, extra 1gm @18] Date: 05/20/17. Current Vancomycin Dose: [1gm IV q8h, extra 1gm @11] Date: 05/18/17. Current Vancomycin Dose: [1G IV Q8H ] Intermittent Dosing?: No Labs Labs Vital Signs Label Value Date Time Patient Temperature 99.3 degrees F 05/21/17 0600 Temperature Source Temporal 05/21/17 0600 Patient Temperature 99.7 degrees F 05/21/17 0830 Temperature Source Temporal 05/21/17 0830 Patient Temperature 100.3 degrees F 05/21/17 1409 Temperature Source Temporal 05/21/17 1409 Pulse 84 05/21/17 1409 Item Value Date Time White Blood Count 7.9 K/mm3 05/21/17 0601 Micro Microbiology 05/18/17 Blood Culture - Preliminary, Resulted No Growth after 72 hours. All specime... 05/18/17 Blood Culture - Preliminary, Resulted No Growth after 72 hours. All specime... 05/18/17 Gram Stain - Final, Complete 05/18/17 Sputum Culture - Final, Complete 05/18/17 Respiratory Virus Panel (PCR) (JOANNA) - Final, Complete 05/18/17 MRSA Screen - Final, Complete 05/18/17 Urine Culture - Final, Complete Creatinine Clearance Date:05/18/17. Creatinine Clearance: [127.5ML/MIN]. Pending Labs URINE AND BLOOD CULTURE PENDING Assessment and Plan Maintaining Current Dose?: Yes Reason for dose change: Trough too low Pharmacist Note Pharmacist Note 05/21: Patient's trough came back at 11.9. He will be continued on Vancomycin 1gm IV q8h and given an extra 1gm at 1800 to help increase his his trough. Patient is still experiencing fevers but is overall feeling better. All micro is negative to date. We will continue to monitor and make adjustments as necessary. 05/20: Patient's trough came back at 9 this morning. He was continued on Vancomycin 1gm IV q8h and given an extra 1gm at 11am to help increase his trough. Patient is still experiencing fevers and having a productive cough with yellow sputum. We will continue to monitor and make adjustments as necessary. Date: 05/18/17. Pharmacist note:PT is a 42 year old male being treated with immunocompromised fever goal trough 15-20mcg/ml. Pt does not have a history of vancomycin therapy here at [facility] in the past. To achieve goal a 2g loading dose will be started 05/18/17 @18:00 and maintenance therapy will consist of 1g iv every 8 hours starting 05/19 @02:00. We will continue to monitor and adjust dose as needed. SHERI NESS PHARMACY May 21, 2017 20:44
[2017-05-21] MEDS: ENOXAPARIN 40 MG/0.4 ML SYRINGE (J1650) SC SCH (20:50)
[2017-05-21 22:00] VITALS: BP 136/71
[2017-05-22] MEDS: MEROPENEM INJ 1 GM in D5W MINI-BAG PLUS 100 ML IV SCH ×4 (00:25→23:00)
[2017-05-22] MEDS: VANCOMYCIN HCL 1,000 MG, VIAL MATE ADAPTER 1 EACH in D5W 250 ML IV SCH ×3 (01:33→18:26)
[2017-05-22 05:54] LABS: BASO # 0.1 K/mm3 (0.0-0.2); BASO % 0.8 % (0.0-1.0); EOS # 0.6 K/mm3 (0.0-0.50); LARGE UNSTAINED CELL # 0.2 K/mm3 (0.0-0.4); LARGE UNSTAINED CELL % 2.2 % (0.0-4.0); LYMPH # 2.1 K/mm3 (1.5-4.5); LYMPH % 19.6 % (24.0-44.0); MEAN CORPUSCULAR HEMOGLOBIN 29.3 pg (27.0-33.0); MEAN CORPUSCULAR HGB CONC 34.1 g/dl (32.0-36.5); MEAN CORPUSCULAR VOLUME 85.8 fl (80.0-96.0); MONO # 0.9 K/mm3 (0.0-0.8); NEUTROPHILS % 62.3 % (36.0-66.0); PLATELET COUNT, AUTOMATED 210 k/mm3 (150-450); RED CELL DISTRIBUTION WIDTH 12.6 % (11.5-14.5); WHITE BLOOD COUNT 9.7 K/mm3 (4.0-10.0)
[2017-05-22 06:00] VITALS: BP 129/86
[2017-05-22 06:11] LABS: ALBUMIN 2.9 GM/DL (3.2-5.2); ALBUMIN/GLOBULIN RATIO 0.63 (1.00-1.93); ALKALINE PHOSPHATASE 65 U/L (45-117); ALT/SGPT 58 U/L (12-78); ANION GAP 9 MEQ/L (8-16); AST/SGOT 25 U/L (15-37); BILIRUBIN,TOTAL 0.4 MG/DL (0.2-1.0); BLOOD UREA NITROGEN 9 MG/DL (7-18); CARBON DIOXIDE LEVEL 26 MEQ/L (21-32); CHLORIDE LEVEL 107 MEQ/L (98-107); CREATININE FOR GFR 0.68 MG/DL (0.70-1.30); GLOMERULAR FILTRATION RATE > 60.0 (>60); GLUCOSE, FASTING 108 MG/DL (70-105); MAGNESIUM LEVEL 2.1 MG/DL (1.8-2.4); POTASSIUM SERUM 3.9 MEQ/L (3.5-5.1); SODIUM LEVEL 142 MEQ/L (136-145); TOTAL PROTEIN 7.5 GM/DL (6.4-8.2)
--- NOTE | 2017-05-22 12:55 | IPNPDOC ---
Date Seen The patient was seen on 05/22/17. Progress Note Hospitalist Progress Note Subjective: Patient states that he is feeling well; has no complaints other than wanting to go home soon Objective: Physical Exam: Vitals: Vital Sign - Last 24 Hours 05/21/17 05/21/17 05/21/17 05/22/17 14:09 21:00 22:00 02:00 Temp 100.3 100.5 99.6 Pulse 84 101 Resp 22 20 B/P (MAP) 129/81 (97) 136/71 (92) Pulse Ox 94 96 O2 Delivery Room Air Room Air 05/22/17 05/22/17 06:00 09:00 Temp 99.0 Pulse 100 Resp 18 B/P (MAP) 129/86 (100) Pulse Ox 98 O2 Delivery Room Air General: Awake, alert, no acute distress HEENT: Normocephalic, atraumatic CV: Regular rate and rhythm Lungs: Clear To auscultation bilaterally Abd: Soft, Nontender, nondistended Extremities: No peripheral edema Neuro: Alert And oriented 3 Psych: Normal mood and affect Labs and Imaging: Laboratory Tests 05/22/17 05:44 Red Blood Count 4.39, Mean Corpuscular Volume 85.8, Mean Corpuscular Hemoglobin 29.3, Mean Corpuscular Hemoglobin Concent 34.1, Red Cell Distribution Width 12.6 , Neutrophils (%) (Auto) 62.3, Lymphocytes (%) (Auto) 19.6 L, Monocytes (%) ( Auto) 9.0 H, Eosinophils (%) (Auto) 6.0 H, Basophils (%) (Auto) 0.8, Neutrophils # (Auto) 6.0, Lymphocytes # (Auto) 2.1, Monocytes # (Auto) 0.9 H, Eosinophils # (Auto) 0.6 H, Basophils # (Auto) 0.1, Calcium Level 9.0, Aspartate Amino Transf (AST/SGOT) 25, Alanine Aminotransferase (ALT/SGPT) 58, Alkaline Phosphatase 65, Total Bilirubin 0.4, Total Protein 7.5, Albumin 2.9 L Assessment and Plan: 42-year-old male with history of glioblastoma status post 2 craniotomies, as well as radiation and chemotherapy, who was found to have a recurrence of the cancer in September 2016 and is currently on Keytruda therapy who presented to the ER with fevers and cough and has been admitted with pneumonia. 1. Pneumonia in an immunosuppressed patient: The patient's WBC upon admission was 13.8, but this has now returned to within normal limits. CT of the chest shows concern for left upper lobe bronchitis and early pneumonia. The patient has continued to have intermittent fevers despite broad antibiotics of vancomycin and cefepime so he was changed to vanc and merrem and although he still had a Tmax of 100.5 yesterday, his overall fever curve has decreased. CRP is also now down trending. Blood cultures, urine cultures, sputum cultures , and respiratory virus panel have all been negative. Clinically, the patient appears to be doing well. 2. History of glioblastoma status post 2 craniotomies as well as radiation and chemotherapy, was found to have a recurrence in September 2016: The patient has been on Keytruda therapy at home, which we are currently holding in the setting of acute infection. DVT prophylaxis: Lovenox Dispo: pending resolution of fevers and ability to transfer to oral antibiotics VS, I&O, 24H, [place] Vital Signs/I&O Vital Signs Date Time Temp Pulse Resp B/P (MAP) Pulse Ox O2 Delivery O2 Flow Rate FiO2 05/22/17 09:00 Room Air 05/22/17 06:00 99.0 100 18 129/86 (100) 98 I&O- Last 24 Hours up to 6 AM 05/22/17 06:00 Intake Total 3910 ml Output Total 3500 ml Balance 410 ml Laboratory Data 24H LABS Laboratory Tests 2 05/21/17 16:49: Vancomycin Level Trough 11.9 05/22/17 05:44: White Blood Count 9.7, Red Blood Count 4.39, Hemoglobin 12.9L, Hematocrit 37.7L , Mean Corpuscular Volume 85.8, Mean Corpuscular Hemoglobin 29.3, Mean Corpuscular Hemoglobin Concent 34.1, Red Cell Distribution Width 12.6, Platelet Count 210, Neutrophils (%) (Auto) 62.3, Lymphocytes (%) (Auto) 19.6L, Monocytes (%) (Auto) 9.0H, Eosinophils (%) (Auto) 6.0H, Basophils (%) (Auto) 0.8, Neutrophils # (Auto) 6.0, Lymphocytes # (Auto) 2.1, Monocytes # (Auto) 0.9H, Eosinophils # (Auto) 0.6H, Basophils # (Auto) 0.1, Large Unclassified Cells % 2.2, Large Unclassified Cells # 0.2, Anion Gap 9, Glomerular Filtration Rate > 60.0, Blood Urea Nitrogen 9, Creatinine 0.68L, Sodium Level 142, Potassium Level 3.9, Chloride Level 107, Carbon Dioxide Level 26, Calcium Level 9.0, Aspartate Amino Transf (AST/SGOT) 25, Alanine Aminotransferase (ALT/SGPT) 58, Alkaline Phosphatase 65, Total Bilirubin 0.4, Total Protein 7.5, Albumin 2.9L, Magnesium Level 2.1, C-Reactive Protein, Quantitative 8.96H, Albumin/Globulin Ratio 0.63L CBC/BMP Laboratory Tests 05/22/17 05:44 Red Blood Count 4.39, Mean Corpuscular Volume 85.8, Mean Corpuscular Hemoglobin 29.3, Mean Corpuscular Hemoglobin Concent 34.1, Red Cell Distribution Width 12.6 , Neutrophils (%) (Auto) 62.3, Lymphocytes (%) (Auto) 19.6 L, Monocytes (%) ( Auto) 9.0 H, Eosinophils (%) (Auto) 6.0 H, Basophils (%) (Auto) 0.8, Neutrophils # (Auto) 6.0, Lymphocytes # (Auto) 2.1, Monocytes # (Auto) 0.9 H, Eosinophils # (Auto) 0.6 H, Basophils # (Auto) 0.1, Calcium Level 9.0, Aspartate Amino Transf (AST/SGOT) 25, Alanine Aminotransferase (ALT/SGPT) 58, Alkaline Phosphatase 65, Total Bilirubin 0.4, Total Protein 7.5, Albumin 2.9 L Microbiology Microbiology 05/18/17 Blood Culture - Preliminary, Resulted No Growth after 72 hours. All specime... 05/18/17 Blood Culture - Preliminary, Resulted No Growth after 72 hours. All specime... 05/18/17 Gram Stain - Final, Complete 05/18/17 Sputum Culture - Final, Complete 05/18/17 Respiratory Virus Panel (PCR) (JOANNA) - Final, Complete 05/18/17 MRSA Screen - Final, Complete 05/18/17 Urine Culture - Final, Complete DAVID RHOADES May 22, 2017 12:55
[2017-05-22 14:00] VITALS: BP 143/83
--- NOTE | 2017-05-22 15:12 | PHACANCOPD ---
PHARMACY VANCOMYCIN DOSING Pt Demographics Demographics Patient Age:42 , Weight:100.500 , Gender: male Adjusted Body Weight Date: 05/18/17, Adjusted Body Weight: [90.2] Kg Vancomycin Vancomycin indication: IMMUNOCOMPROMISED, FEVER Vancomycin Target Ranges: 15-20 mcg/ml Vancomycin Load Y/N: Yes Load Dose Date Time Vancomycin Load Dose: 2000MG Date: 05/18/17 Time: 18:00 Vancomycin Dose Date: 05/21/17. Current Vancomycin Dose: [1GM IV q8h, extra 1gm @18] Date: 05/20/17. Current Vancomycin Dose: [1gm IV q8h, extra 1gm @11] Date: 05/18/17. Current Vancomycin Dose: [1G IV Q8H ] Intermittent Dosing?: No Labs Micro Microbiology 05/18/17 Blood Culture - Preliminary, Resulted No Growth after 72 hours. All specime... 05/18/17 Blood Culture - Preliminary, Resulted No Growth after 72 hours. All specime... 05/18/17 Gram Stain - Final, Complete 05/18/17 Sputum Culture - Final, Complete 05/18/17 Respiratory Virus Panel (PCR) (JOANNA) - Final, Complete 05/18/17 MRSA Screen - Final, Complete 05/18/17 Urine Culture - Final, Complete Creatinine Clearance Date:05/18/17. Creatinine Clearance: [127.5ML/MIN]. Pending Labs URINE AND BLOOD CULTURE PENDING Assessment and Plan Maintaining Current Dose?: Yes Reason for dose change: No Dose Change Pharmacist Note Pharmacist Note 05/22: A follow-up trough has been scheduled today at 1700 to ensure that the patient is within therapeutic range. We will continue to monitor and make further adjustments if needed. 05/21: Patient's trough came back at 11.9. He will be continued on Vancomycin 1gm IV q8h and given an extra 1gm at 1800 to help increase his his trough. Patient is still experiencing fevers but is overall feeling better. All micro is negative to date. We will continue to monitor and make adjustments as necessary. 05/20: Patient's trough came back at 9 this morning. He was continued on Vancomycin 1gm IV q8h and given an extra 1gm at 11am to help increase his trough. Patient is still experiencing fevers and having a productive cough with yellow sputum. We will continue to monitor and make adjustments as necessary. Date: 05/18/17. Pharmacist note:PT is a 42 year old male being treated with immunocompromised fever goal trough 15-20mcg/ml. Pt does not have a history of vancomycin therapy here at [facility] in the past. To achieve goal a 2g loading dose will be started 05/18/17 @18:00 and maintenance therapy will consist of 1g iv every 8 hours starting 05/19 @02:00. We will continue to monitor and adjust dose as needed. LORENZO VELOZ PHARMACY May 22, 2017 15:12
[2017-05-22] MEDS: ENOXAPARIN 40 MG/0.4 ML SYRINGE (J1650) SC SCH (20:33)
[2017-05-22 22:00] VITALS: BP 132/83
[2017-05-23] MEDS: VANCOMYCIN HCL 1,000 MG, VIAL MATE ADAPTER 1 EACH in D5W 250 ML IV SCH (01:36)
[2017-05-23 02:00] VITALS: BP 118/74
[2017-05-23 06:00] VITALS: BP 126/74
[2017-05-23 07:04] LABS: BASO # 0.1 K/mm3 (0.0-0.2); BASO % 0.9 % (0.0-1.0); EOS # 0.6 K/mm3 (0.0-0.50); EOS % 5.6 % (0.0-3.0); LARGE UNSTAINED CELL # 0.4 K/mm3 (0.0-0.4); LARGE UNSTAINED CELL % 3.6 % (0.0-4.0); LYMPH # 2.2 K/mm3 (1.5-4.5); LYMPH % 20.3 % (24.0-44.0); MEAN CORPUSCULAR HEMOGLOBIN 29.7 pg (27.0-33.0); MEAN CORPUSCULAR HGB CONC 34.9 g/dl (32.0-36.5); MEAN CORPUSCULAR VOLUME 85.2 fl (80.0-96.0); MONO # 0.8 K/mm3 (0.0-0.8); MONO % 7.7 % (0.0-5.0); NEUTROPHILS # 6.7 K/mm3 (1.8-7.7); NEUTROPHILS % 61.8 % (36.0-66.0); PLATELET COUNT, AUTOMATED 237 k/mm3 (150-450); RED CELL DISTRIBUTION WIDTH 12.4 % (11.5-14.5); WHITE BLOOD COUNT 10.8 K/mm3 (4.0-10.0)
[2017-05-23 07:28] LABS: ALBUMIN 2.9 GM/DL (3.2-5.2); ALBUMIN/GLOBULIN RATIO 0.63 (1.00-1.93); ALKALINE PHOSPHATASE 69 U/L (45-117); ALT/SGPT 58 U/L (12-78); ANION GAP 10 MEQ/L (8-16); AST/SGOT 19 U/L (15-37); BILIRUBIN,TOTAL 0.3 MG/DL (0.2-1.0); BLOOD UREA NITROGEN 10 MG/DL (7-18); CARBON DIOXIDE LEVEL 26 MEQ/L (21-32); CHLORIDE LEVEL 106 MEQ/L (98-107); CREATININE FOR GFR 0.68 MG/DL (0.70-1.30); GLOMERULAR FILTRATION RATE > 60.0 (>60); GLUCOSE, FASTING 107 MG/DL (70-105); MAGNESIUM LEVEL 2.1 MG/DL (1.8-2.4); SODIUM LEVEL 142 MEQ/L (136-145); TOTAL PROTEIN 7.5 GM/DL (6.4-8.2)
[2017-05-23] MEDS: MEROPENEM INJ 1 GM in D5W MINI-BAG PLUS 100 ML IV SCH (08:03)
[2017-05-23] MEDS: LevoFLOXacin 750 MG TABLET PO SCH (11:01)
[2017-05-23] MEDS: AUGMENTIN 875 MG TAB PO SCH ×2 (11:01→21:12)
[2017-05-23 14:00] VITALS: BP 131/75
--- NOTE | 2017-05-23 16:22 | IPNPDOC ---
Date Seen The patient was seen on 05/23/17. Progress Note Hospitalist Progress Note Subjective: Patient states that he is feeling well, no complaints Objective: Physical Exam: Vitals: Vital Sign - Last 24 Hours 05/22/17 05/22/17 05/23/17 05/23/17 21:00 22:00 02:00 06:00 Temp 99.0 98.6 98.7 Pulse 88 84 80 Resp 20 18 20 B/P (MAP) 132/83 (99) 118/74 (89) 126/74 (91) Pulse Ox 95 98 93 O2 Delivery Room Air Room Air 05/23/17 05/23/17 11:25 14:00 Temp 98.6 Pulse 86 Resp 18 B/P (MAP) 131/75 (93) Pulse Ox 95 O2 Delivery Room Air Room Air General: Awake, alert, no acute distress HEENT: Normocephalic, atraumatic CV: Regular rate and rhythm Lungs: Clear To auscultation bilaterally Abd: Soft, Nontender, nondistended Extremities: No peripheral edema Neuro: Alert And oriented 3 Psych: Normal mood and affect Labs and Imaging: Laboratory Tests 05/23/17 06:40 Red Blood Count 4.40, Mean Corpuscular Volume 85.2, Mean Corpuscular Hemoglobin 29.7, Mean Corpuscular Hemoglobin Concent 34.9, Red Cell Distribution Width 12.4 , Neutrophils (%) (Auto) 61.8, Lymphocytes (%) (Auto) 20.3 L, Monocytes (%) ( Auto) 7.7 H, Eosinophils (%) (Auto) 5.6 H, Basophils (%) (Auto) 0.9, Neutrophils # (Auto) 6.7, Lymphocytes # (Auto) 2.2, Monocytes # (Auto) 0.8, Eosinophils # (Auto) 0.6 H, Basophils # (Auto) 0.1, Calcium Level 9.0, Aspartate Amino Transf (AST/SGOT) 19, Alanine Aminotransferase (ALT/SGPT) 58, Alkaline Phosphatase 69, Total Bilirubin 0.3, Total Protein 7.5, Albumin 2.9 L Assessment and Plan: 42-year-old male with history of glioblastoma status post 2 craniotomies, as well as radiation and chemotherapy, who was found to have a recurrence of the cancer in September 2016 and is currently on Keytruda therapy who presented to the ER with fevers and cough and has been admitted with pneumonia. 1. Pneumonia in an immunosuppressed patient: The patient's WBC upon admission was 13.8, but this has now returned to within normal limits. CT of the chest shows concern for left upper lobe bronchitis and early pneumonia. The patient is now afebrile on broad antibiotics of vancomycin and merrem. We will transition him to PO levaquin and augmentin. CRP is also now down trending. Blood cultures, urine cultures, sputum cultures, and respiratory virus panel have all been negative. Clinically, the patient appears to be doing well. 2. History of glioblastoma status post 2 craniotomies as well as radiation and chemotherapy, was found to have a recurrence in September 2016: The patient has been on Keytruda therapy at home, which we are currently holding in the setting of acute infection. DVT prophylaxis: Lovenox Dispo:hopefully tomorrow, if he is afebrile on oral antibiotics VS, I&O, 24H, [place] Vital Signs/I&O Vital Signs Date Time Temp Pulse Resp B/P (MAP) Pulse Ox O2 Delivery O2 Flow Rate FiO2 05/23/17 14:00 98.6 86 18 131/75 (93) 95 Room Air I&O- Last 24 Hours up to 6 AM 05/23/17 06:00 Intake Total 2880 ml Output Total 4050 ml Balance -1170 ml Laboratory Data 24H LABS Laboratory Tests 2 05/22/17 16:37: Vancomycin Level Trough 14.4 05/23/17 06:40: White Blood Count 10.8H, Red Blood Count 4.40, Hemoglobin 13.1L, Hematocrit 37.5L, Mean Corpuscular Volume 85.2, Mean Corpuscular Hemoglobin 29.7, Mean Corpuscular Hemoglobin Concent 34.9, Red Cell Distribution Width 12.4, Platelet Count 237, Neutrophils (%) (Auto) 61.8, Lymphocytes (%) (Auto) 20.3L, Monocytes (%) (Auto) 7.7H, Eosinophils (%) (Auto) 5.6H, Basophils (%) (Auto) 0.9, Neutrophils # (Auto) 6.7, Lymphocytes # (Auto) 2.2, Monocytes # (Auto) 0.8, Eosinophils # (Auto) 0.6H, Basophils # (Auto) 0.1, Large Unclassified Cells % 3.6, Large Unclassified Cells # 0.4, Anion Gap 10, Glomerular Filtration Rate > 60.0, Blood Urea Nitrogen 10, Creatinine 0.68L, Sodium Level 142, Potassium Level 4.0, Chloride Level 106, Carbon Dioxide Level 26, Calcium Level 9.0, Aspartate Amino Transf (AST/SGOT) 19, Alanine Aminotransferase (ALT/SGPT) 58, Alkaline Phosphatase 69, Total Bilirubin 0.3, Total Protein 7.5, Albumin 2.9L, Magnesium Level 2.1, C-Reactive Protein, Quantitative 7.58H, Albumin/Globulin Ratio 0.63L CBC/BMP Laboratory Tests 05/23/17 06:40 Red Blood Count 4.40, Mean Corpuscular Volume 85.2, Mean Corpuscular Hemoglobin 29.7, Mean Corpuscular Hemoglobin Concent 34.9, Red Cell Distribution Width 12.4 , Neutrophils (%) (Auto) 61.8, Lymphocytes (%) (Auto) 20.3 L, Monocytes (%) ( Auto) 7.7 H, Eosinophils (%) (Auto) 5.6 H, Basophils (%) (Auto) 0.9, Neutrophils # (Auto) 6.7, Lymphocytes # (Auto) 2.2, Monocytes # (Auto) 0.8, Eosinophils # (Auto) 0.6 H, Basophils # (Auto) 0.1, Calcium Level 9.0, Aspartate Amino Transf (AST/SGOT) 19, Alanine Aminotransferase (ALT/SGPT) 58, Alkaline Phosphatase 69, Total Bilirubin 0.3, Total Protein 7.5, Albumin 2.9 L Microbiology Microbiology 05/18/17 Blood Culture - Final, Complete NO GROWTH AFTER 5 DAYS 05/18/17 Blood Culture - Final, Complete NO GROWTH AFTER 5 DAYS 05/18/17 Gram Stain - Final, Complete 05/18/17 Sputum Culture - Final, Complete 05/18/17 Respiratory Virus Panel (PCR) (JOANNA) - Final, Complete 05/18/17 MRSA Screen - Final, Complete 05/18/17 Urine Culture - Final, Complete DAVID RHOADES May 23, 2017 16:22
[2017-05-23] MEDS: ENOXAPARIN 40 MG/0.4 ML SYRINGE (J1650) SC SCH (21:12)
[2017-05-23 22:00] VITALS: BP 129/84
[2017-05-24] MEDS: LevoFLOXacin 750 MG TABLET PO SCH (05:16)
[2017-05-24 06:00] VITALS: BP 129/64
[2017-05-24 06:52] LABS: BASO # 0.1 K/mm3 (0.0-0.2); BASO % 0.9 % (0.0-1.0); EOS # 0.6 K/mm3 (0.0-0.50); EOS % 6.8 % (0.0-3.0); LARGE UNSTAINED CELL # 0.2 K/mm3 (0.0-0.4); LARGE UNSTAINED CELL % 1.9 % (0.0-4.0); LYMPH # 2.2 K/mm3 (1.5-4.5); LYMPH % 25.6 % (24.0-44.0); MEAN CORPUSCULAR HEMOGLOBIN 28.7 pg (27.0-33.0); MEAN CORPUSCULAR HGB CONC 33.5 g/dl (32.0-36.5); MEAN CORPUSCULAR VOLUME 85.7 fl (80.0-96.0); MONO # 0.6 K/mm3 (0.0-0.8); MONO % 7.3 % (0.0-5.0); NEUTROPHILS # 4.7 K/mm3 (1.8-7.7); NEUTROPHILS % 57.5 % (36.0-66.0); PLATELET COUNT, AUTOMATED 246 k/mm3 (150-450); RED CELL DISTRIBUTION WIDTH 12.5 % (11.5-14.5); WHITE BLOOD COUNT 8.1 K/mm3 (4.0-10.0)
[2017-05-24 07:16] LABS: ALBUMIN/GLOBULIN RATIO 0.64 (1.00-1.93); ALKALINE PHOSPHATASE 64 U/L (45-117); ALT/SGPT 55 U/L (12-78); ANION GAP 10 MEQ/L (8-16); AST/SGOT 19 U/L (15-37); BILIRUBIN,TOTAL 0.2 MG/DL (0.2-1.0); BLOOD UREA NITROGEN 12 MG/DL (7-18); CALCIUM LEVEL 8.9 MG/DL (8.5-10.1); CARBON DIOXIDE LEVEL 27 MEQ/L (21-32); CHLORIDE LEVEL 106 MEQ/L (98-107); CREATININE FOR GFR 0.67 MG/DL (0.70-1.30); GLOMERULAR FILTRATION RATE > 60.0 (>60); GLUCOSE, FASTING 116 MG/DL (70-105); MAGNESIUM LEVEL 2.2 MG/DL (1.8-2.4); POTASSIUM SERUM 3.9 MEQ/L (3.5-5.1); SODIUM LEVEL 143 MEQ/L (136-145); TOTAL PROTEIN 7.7 GM/DL (6.4-8.2)
[2017-05-24] MEDS: AUGMENTIN 875 MG TAB PO SCH (09:55)
[2017-05-24] MEDS ORDERED: LEVA750T7 PO (11:54)
[2017-05-24] MEDS ORDERED: AMOX875T2 PO (11:54)
--- NOTE | 2017-05-24 14:53 | DS.PDOC ---
Discharge Summary General Date of Admission May 19, 2017 at 15:01 Date of Discharge 05/24/2017 Discharge Summary DISCHARGE SUMMARY DATE OF ADMISSION: 05/18/2017 DATE OF DISCHARGE: 05/24/2017 PRIMARY CARE PHYSICIAN: Dr. Srivastava DISCHARGE DIAGNOS(E)S: Pneumonia in an immunocompromised patient HPI & HOSPITAL COURSE: 42-year-old male with history of glioblastoma status post 2 craniotomies, as well as radiation and chemotherapy, who was found to have a recurrence of the cancer in September 2016 and is currently on Keytruda therapy who presented to the ER with fevers and cough and has been admitted with pneumonia. 1. Pneumonia in an immunosuppressed patient: The patient's WBC upon admission was 13.8, but this has now returned to within normal limits. CT of the chest shows concern for left upper lobe bronchitis and early pneumonia. The patient is now afebrile after being transitioned from broad antibiotics of vancomycin and merrem to oral levaquin and augmentin. CRP is also now down trending. Blood cultures, urine cultures, sputum cultures, and respiratory virus panel have all been negative. Clinically, the patient appears to be doing well. 2. History of glioblastoma status post 2 craniotomies as well as radiation and chemotherapy, was found to have a recurrence in September 2016: The patient has been on Keytruda therapy at home, which we are currently holding in the setting of acute infection. DVT prophylaxis: Lovenox PHYSICAL EXAMINATION ON DISCHARGE: VITAL SIGNS: Vital Signs Date Time Temp Pulse Resp B/P (MAP) Pulse Ox O2 Delivery O2 Flow Rate FiO2 05/24/17 08:00 Room Air 05/24/17 06:00 98.3 77 18 129/64 (85) 96 General: Awake, alert, no acute distress HEENT: Normocephalic, atraumatic CV: Regular rate and rhythm Lungs: Clear To auscultation bilaterally Abd: Soft, Nontender, nondistended Extremities: No peripheral edema Neuro: Alert And oriented 3 Psych: Normal mood and affect DISPOSITION: Home DISCHARGE INSTRUCTIONS: Keep all appointments with [place]. PCP in 1-2 weeks. Do not resume Keytruda therapy until you have finished your antibiotics or unless otherwise instructed by your oncologist. If symptoms return, or if you experience worsening of your symptoms, please call your doctor or return to the emergency department. ITEMS THAT NEED OUTPATIENT FOLLOWUP: None Patient was seen and examined by me on the day of discharge, and I spent a total time of less than 30 minutes on this discharge. Vital Signs/I&Os Vital Signs Date Time Temp Pulse Resp B/P (MAP) Pulse Ox O2 Delivery O2 Flow Rate FiO2 05/24/17 08:00 Room Air 05/24/17 06:00 98.3 77 18 129/64 (85) 96 I&O- Last 24 Hours up to 6 AM 05/24/17 06:00 Intake Total 1300 ml Output Total 2300 ml Balance -1000 ml Laboratory Data Labs 24H Laboratory Tests 2 05/24/17 06:28: White Blood Count 8.1, Red Blood Count 4.41, Hemoglobin 12.7L, Hematocrit 37.8L , Mean Corpuscular Volume 85.7, Mean Corpuscular Hemoglobin 28.7, Mean Corpuscular Hemoglobin Concent 33.5, Red Cell Distribution Width 12.5, Platelet Count 246, Neutrophils (%) (Auto) 57.5, Lymphocytes (%) (Auto) 25.6, Monocytes ( %) (Auto) 7.3H, Eosinophils (%) (Auto) 6.8H, Basophils (%) (Auto) 0.9, Neutrophils # (Auto) 4.7, Lymphocytes # (Auto) 2.2, Monocytes # (Auto) 0.6, Eosinophils # (Auto) 0.6H, Basophils # (Auto) 0.1, Large Unclassified Cells % 1.9, Large Unclassified Cells # 0.2, Anion Gap 10, Glomerular Filtration Rate > 60.0, Blood Urea Nitrogen 12, Creatinine 0.67L, Sodium Level 143, Potassium Level 3.9, Chloride Level 106, Carbon Dioxide Level 27, Calcium Level 8.9, Aspartate Amino Transf (AST/SGOT) 19, Alanine Aminotransferase (ALT/SGPT) 55, Alkaline Phosphatase 64, Total Bilirubin 0.2, Total Protein 7.7, Albumin 3.0L, Magnesium Level 2.2, C-Reactive Protein, Quantitative 6.28H, Albumin/Globulin Ratio 0.64L CBC/BMP Laboratory Tests 05/24/17 06:28 Red Blood Count 4.41, Mean Corpuscular Volume 85.7, Mean Corpuscular Hemoglobin 28.7, Mean Corpuscular Hemoglobin Concent 33.5, Red Cell Distribution Width 12.5 , Neutrophils (%) (Auto) 57.5, Lymphocytes (%) (Auto) 25.6, Monocytes (%) (Auto ) 7.3 H, Eosinophils (%) (Auto) 6.8 H, Basophils (%) (Auto) 0.9, Neutrophils # ( Auto) 4.7, Lymphocytes # (Auto) 2.2, Monocytes # (Auto) 0.6, Eosinophils # (Auto ) 0.6 H, Basophils # (Auto) 0.1, Calcium Level 8.9, Aspartate Amino Transf (AST/ SGOT) 19, Alanine Aminotransferase (ALT/SGPT) 55, Alkaline Phosphatase 64, Total Bilirubin 0.2, Total Protein 7.7, Albumin 3.0 L Microbiology Microbiology 05/18/17 Blood Culture - Final, Complete NO GROWTH AFTER 5 DAYS 05/18/17 Blood Culture - Final, Complete NO GROWTH AFTER 5 DAYS 05/18/17 Gram Stain - Final, Complete 05/18/17 Sputum Culture - Final, Complete 05/18/17 Respiratory Virus Panel (PCR) (JOANNA) - Final, Complete 05/18/17 MRSA Screen - Final, Complete 05/18/17 Urine Culture - Final, Complete Discharge Medications Scheduled Amoxicillin/Clavulanate Potas (Amoxicillin/Clavulanate P 875-125 mg) 1 Tab Tab, 875 MG PO BID Levofloxacin Hemihydrate (Levaquin) 750 Mg Tab, 750 MG PO DAILY Allergies Coded Allergies: Temozolomide (Verified Allergy, Unknown, 05/18/17) DAVID RHOADES May 24, 2017 14:53
== END 2017-05-24 13:47 | disposition home or self-care (01) | DRG 194 ==
LOC: M ED 11:59 → M ED INP 15:54 → M MSPAV 22:25 → OBSVTOIN 05-19 15:01
PROVIDERS: ADMIT Internal Medicine; ATTEND Hospitalist
DX: J18.9 Pneumonia, unspecified organism (principal); C71.9 Malignant neoplasm of brain, unspecified; D84.9 Immunodeficiency, unspecified; Z92.3 Personal history of irradiation; Z92.21 Personal history of antineoplastic chemotherapy; Z79.899 Other long term (current) drug therapy; Z88.8 Allergy status to other drugs, medicaments and biological substances; Z87.891 Personal history of nicotine dependence

== ENCOUNTER → 2017-06-09 | Outpatient (REF) | payer MEDICARE, MEDICAID ==
[~2017-06-09] MED LIST: AMOX875T2 PO; KEYT1SOL IV; LEVA750T7 PO
[2017-06-09 20:43] LABS: ANION GAP 6 MEQ/L (8-16); BLOOD UREA NITROGEN 13 MG/DL (7-18); CARBON DIOXIDE LEVEL 30 MEQ/L (21-32); CHLORIDE LEVEL 103 MEQ/L (98-107); CREATININE FOR GFR 0.77 MG/DL (0.70-1.30); GLOMERULAR FILTRATION RATE > 60.0 (>60); GLUCOSE, FASTING 153 MG/DL (70-105); SODIUM LEVEL 139 MEQ/L (136-145)
== END ==
LOC: M LAB REF 16:39
PROVIDERS: ATTEND Family Medicine
DX: C71.9 Malignant neoplasm of brain, unspecified (principal); K40.90 Unilateral inguinal hernia, without obstruction or gangrene, not specified as recurrent; R50.9 Fever, unspecified

== ENCOUNTER → 2017-06-23 | Outpatient (REF) | payer MEDICARE, MEDICAID | LOC: M LAB REF 17:19 | PROVIDERS: ATTEND Internal Medicine Medical Oncology | DX: C71.9 Malignant neoplasm of brain, unspecified (principal) ==

== ENCOUNTER → 2017-07-21 | Outpatient (REF) | payer MEDICARE, MEDICAID | LOC: M LAB REF 12:29 | PROVIDERS: ATTEND Internal Medicine Medical Oncology | DX: C71.9 Malignant neoplasm of brain, unspecified (principal) ==

== ENCOUNTER → 2017-08-04 | Outpatient (REF) | payer MEDICARE, MEDICAID | LOC: M LAB REF 17:21 | PROVIDERS: ATTEND Internal Medicine Medical Oncology | DX: C71.9 Malignant neoplasm of brain, unspecified (principal) ==

== ENCOUNTER → 2017-08-18 | Outpatient (REF) | payer MEDICARE, MEDICAID | LOC: M LAB REF 18:53 | PROVIDERS: ATTEND Internal Medicine Medical Oncology | DX: C71.9 Malignant neoplasm of brain, unspecified (principal) ==

== ENCOUNTER → 2017-08-20 | Outpatient (CLI) | payer MEDICARE, MEDICAID ==
--- NOTE | 2017-08-20 11:27 | REP ---
ULTRASOUND ABDOMEN: Real-time sonographic evaluation of the abdomen performed. Gallbladder demonstrates no evidence of intraluminal sludge or calculi, wall thickening, or pericholecystic fluid. There is no intrahepatic or extrahepatic biliary diltation, common bile duct measuring 4 mm in diameter. Liver demonstrates diffuse increased echotexture compatible with diffuse fatty infiltration. Liver is mildly enlarged with a length of 17.8 cm in mid clavicular line. Pancreas is not optimally seen due to overlying bowel gas, but no gross abnormality is seen. Spleen is not enlarged with a length of 11.4 cm. Kidneys are normal in size and echotexture, right kidney measuring 13.0 x 5.6 x 5.4 cm and left kidney 12.9 x 4.9 x 5.3 cm. A cyst is seen medially in the left kidney measuring 0.9 x 1.0 x 1.4 cm. Visualized abdominal aorta is normal in caliber with no aneurysm, proximally measuring 2.1 cm in AP dimension and distally 1.6 cm. No ascites is seen. IMPRESSION: Very mild hepatomegaly with diffuse fatty infiltration. Spleen normal in size. Signed by Richard Damon MD 08/21/2017 09:08 A
== END ==
LOC: M RAD 09:04
PROVIDERS: ATTEND Internal Medicine Medical Oncology
DX: C71.9 Malignant neoplasm of brain, unspecified (principal)

== ENCOUNTER → 2017-09-02 | Outpatient (REF) | payer MEDICARE, MEDICAID | LOC: M LAB REF 16:53 | PROVIDERS: ATTEND Internal Medicine Medical Oncology | DX: C71.9 Malignant neoplasm of brain, unspecified (principal) ==

== ENCOUNTER → 2017-09-15 | Outpatient (REF) | payer MEDICARE, MEDICAID ==
[2017-09-15 13:33] LABS: APPEARANCE, URINE CLEAR (CLEAR); BACTERIA, URINE AUTO NEGATIVE (NEGATIVE); BILIRUBIN, URINE AUTO NEGATIVE (NEGATIVE); BLOOD, URINE BLOOD NEGATIVE (NEGATIVE); COLOR, URINE YELLOW (YELLOW); GLUCOSE, URINE (UA) AUTO NEGATIVE (NEGATIVE); KETONE, URINE AUTO NEGATIVE (NEGATIVE); LEUKOCYTE ESTERASE, URINE AUTO NEGATIVE (NEGATIVE); MUCUS, URINE SMALL (NEGATIVE); NITRITE, URINE AUTO NEGATIVE (NEGATIVE); PROTEIN, URINE AUTO NEGATIVE (NEGATIVE); RBC, URINE AUTO 3 /HPF (0-3); SPECIFIC GRAVITY URINE AUTO 1.014 (1.002-1.035); SQUAMOUS EPITHELIAL CELL UR AU 0 /HPF (0-6); UROBILINOGEN, URINE AUTO 0.2 mg/dL (0.0-2.0); WBC, URINE AUTO 0 /HPF (0-3)
== END ==
LOC: M LAB REF 12:50
DX: C71.9 Malignant neoplasm of brain, unspecified (principal)
CPT/HCPCS: 81001

== ENCOUNTER → 2017-09-22 | Outpatient (REF) | payer MEDICARE, MEDICAID ==
[2017-09-22 14:09] LABS: APPEARANCE, URINE CLEAR (CLEAR); BACTERIA, URINE AUTO NEGATIVE (NEGATIVE); BILIRUBIN, URINE AUTO NEGATIVE (NEGATIVE); BLOOD, URINE BLOOD NEGATIVE (NEGATIVE); COLOR, URINE YELLOW (YELLOW); GLUCOSE, URINE (UA) AUTO NEGATIVE (NEGATIVE); KETONE, URINE AUTO NEGATIVE (NEGATIVE); LEUKOCYTE ESTERASE, URINE AUTO NEGATIVE (NEGATIVE); MUCUS, URINE SMALL (NEGATIVE); NITRITE, URINE AUTO NEGATIVE (NEGATIVE); PROTEIN, URINE AUTO NEGATIVE (NEGATIVE); RBC, URINE AUTO 3 /HPF (0-3); SPECIFIC GRAVITY URINE AUTO 1.016 (1.002-1.035); SQUAMOUS EPITHELIAL CELL UR AU 0 /HPF (0-6); UROBILINOGEN, URINE AUTO 0.2 mg/dL (0.0-2.0); WBC, URINE AUTO 1 /HPF (0-3)
== END ==
LOC: M LAB REF 13:29
DX: C71.9 Malignant neoplasm of brain, unspecified (principal)
CPT/HCPCS: 81001

== ENCOUNTER → 2017-09-29 | Outpatient (REF) | payer MEDICARE, MEDICAID ==
[2017-09-29 13:20] LABS: APPEARANCE, URINE CLEAR (CLEAR); BACTERIA, URINE AUTO NEGATIVE (NEGATIVE); BILIRUBIN, URINE AUTO NEGATIVE (NEGATIVE); BLOOD, URINE BLOOD NEGATIVE (NEGATIVE); COLOR, URINE YELLOW (YELLOW); GLUCOSE, URINE (UA) AUTO NEGATIVE (NEGATIVE); KETONE, URINE AUTO NEGATIVE (NEGATIVE); LEUKOCYTE ESTERASE, URINE AUTO NEGATIVE (NEGATIVE); MUCUS, URINE SMALL (NEGATIVE); NITRITE, URINE AUTO NEGATIVE (NEGATIVE); PROTEIN, URINE AUTO NEGATIVE (NEGATIVE); RBC, URINE AUTO 2 /HPF (0-3); SPECIFIC GRAVITY URINE AUTO 1.017 (1.002-1.035); SQUAMOUS EPITHELIAL CELL UR AU 0 /HPF (0-6); UROBILINOGEN, URINE AUTO 0.2 mg/dL (0.0-2.0); WBC, URINE AUTO 1 /HPF (0-3)
== END ==
LOC: M LAB REF 12:54
DX: C71.9 Malignant neoplasm of brain, unspecified (principal)
CPT/HCPCS: 81001

== ENCOUNTER → 2017-10-13 | Outpatient (REF) | payer MEDICARE, MEDICAID ==
[2017-10-13 12:34] LABS: APPEARANCE, URINE CLEAR (CLEAR); BACTERIA, URINE AUTO NEGATIVE (NEGATIVE); BILIRUBIN, URINE AUTO NEGATIVE (NEGATIVE); BLOOD, URINE BLOOD NEGATIVE (NEGATIVE); COLOR, URINE STRAW (YELLOW); GLUCOSE, URINE (UA) AUTO NEGATIVE (NEGATIVE); KETONE, URINE AUTO NEGATIVE (NEGATIVE); LEUKOCYTE ESTERASE, URINE AUTO NEGATIVE (NEGATIVE); NITRITE, URINE AUTO NEGATIVE (NEGATIVE); PROTEIN, URINE AUTO NEGATIVE (NEGATIVE); RBC, URINE AUTO 2 /HPF (0-3); SPECIFIC GRAVITY URINE AUTO 1.003 (1.002-1.035); SQUAMOUS EPITHELIAL CELL UR AU 0 /HPF (0-6); UROBILINOGEN, URINE AUTO 0.2 mg/dL (0.0-2.0); WBC, URINE AUTO 0 /HPF (0-3)
== END ==
LOC: M LAB REF 12:02
DX: C71.9 Malignant neoplasm of brain, unspecified (principal)
CPT/HCPCS: 81001

== ENCOUNTER 2017-10-19 11:37 | Emergency (ER) | payer MEDICARE, MEDICAID ==
[2017-10-19 12:49] LABS: BASO # 0.1 10^3/uL (0.0-0.2); BASO % 0.9 % (0.0-1.0); EOS # 0.2 10^3/uL (0.0-0.50); EOS % 1.7 % (0.0-3.0); HEMOGLOBIN 15.1 g/dl (14.0-18.0); IMMATURE GRANULOCYTE % 0.5 % (0-3.0); LYMPH # 2.7 10^3/uL (1.5-4.5); LYMPH % 25.2 % (24.0-44.0); MEAN CORPUSCULAR HEMOGLOBIN 30.8 pg (27.0-33.0); MEAN CORPUSCULAR HGB CONC 34.3 g/dl (32.0-36.5); MEAN CORPUSCULAR VOLUME 89.6 fl (80.0-96.0); MONO # 0.9 10^3/uL (0.0-0.8); MONO % 8.1 % (0.0-5.0); NEUTROPHILS # 6.7 10^3/uL (1.8-7.7); NEUTROPHILS % 63.6 % (36.0-66.0); PLATELET COUNT, AUTOMATED 161 10^3/uL (150-450); RED BLOOD COUNT 4.91 10^6/uL (4.30-6.10); RED CELL DISTRIBUTION WIDTH 12.7 % (11.5-14.5); WHITE BLOOD COUNT 10.6 10^3/uL (4.0-10.0)
[2017-10-19] MEDS: NS 1,000 ML IV (12:52)
[2017-10-19] MEDS: ONDANSETRON 4MG/2ML VIAL (J2405) IV (12:53)
[2017-10-19] MEDS: MORPHINE 2 MG/ML 1ML SYRINGE (J2270) IV (12:53)
[2017-10-19] MEDS: GASTROGRAFIN SOLUTION 30ML PO ×2 (12:58→13:25)
[2017-10-19 13:03] LABS: INR 0.97
[2017-10-19 13:14] LABS: ALBUMIN 3.9 GM/DL (3.2-5.2); ALBUMIN/GLOBULIN RATIO 0.98 (1.00-1.93); ALKALINE PHOSPHATASE 74 U/L (45-117); ALT/SGPT 101 U/L (12-78); ANION GAP 8 MEQ/L (8-16); AST/SGOT 37 U/L (7-37); BILIRUBIN,DIRECT 0.2 MG/DL (0.0-0.2); BILIRUBIN,TOTAL 0.4 MG/DL (0.2-1.0); BLOOD UREA NITROGEN 11 MG/DL (7-18); CALCIUM LEVEL 8.5 MG/DL (8.5-10.1); CARBON DIOXIDE LEVEL 26 MEQ/L (21-32); CHLORIDE LEVEL 105 MEQ/L (98-107); CREATININE FOR GFR 0.69 MG/DL (0.70-1.30); GLOMERULAR FILTRATION RATE > 60.0 (>60); GLUCOSE, FASTING 86 MG/DL (70-100); LIPASE 127 U/L (73-393); POTASSIUM SERUM 3.7 MEQ/L (3.5-5.1); SODIUM LEVEL 139 MEQ/L (136-145); TOTAL PROTEIN 7.9 GM/DL (6.4-8.2)
[2017-10-19] MEDS ORDERED: ISOVUE-370 76% 100ML VIAL (Q9967) As Ordered (14:13)
[2017-10-19 14:53] LABS: KETONE, URINE AUTO RFX NEGATIVE (NEGATIVE); LEUKOCYTE ESTERASE UR AUTO RFX NEGATIVE (NEGATIVE); MUCUS, URINE RFX SMALL (NEGATIVE); NITRITE, URINE AUTO RFX NEGATIVE (NEGATIVE); RBC, URINE AUTO RFX 1 /HPF (0-3); SQUAM EPITHELIAL CELL UR AURFX 0 /HPF (0-6); WBC, URINE AUTO RFX 1 /HPF (0-3)
== END 2017-10-19 15:54 | disposition home or self-care (01) ==
LOC: M ED 11:37
DX: R10.9 Unspecified abdominal pain (principal); Z79.52 Long term (current) use of systemic steroids; Z88.8 Allergy status to other drugs, medicaments and biological substances; Z87.891 Personal history of nicotine dependence
CPT/HCPCS: Q9963

== ENCOUNTER → 2017-11-04 | Outpatient (REF) | payer MEDICARE, MEDICAID ==
[2017-11-04 13:24] LABS: APPEARANCE, URINE TURBID (CLEAR); BACTERIA, URINE AUTO 1+ (NEGATIVE); BILIRUBIN, URINE AUTO NEGATIVE (NEGATIVE); BLOOD, URINE BLOOD NEGATIVE (NEGATIVE); COLOR, URINE AMBER (YELLOW); GLUCOSE, URINE (UA) AUTO NEGATIVE (NEGATIVE); KETONE, URINE AUTO NEGATIVE (NEGATIVE); LEUKOCYTE ESTERASE, URINE AUTO NEGATIVE (NEGATIVE); MUCUS, URINE SMALL (NEGATIVE); NITRITE, URINE AUTO NEGATIVE (NEGATIVE); PROTEIN, URINE AUTO NEGATIVE (NEGATIVE); RBC, URINE AUTO 2 /HPF (0-3); SPECIFIC GRAVITY URINE AUTO 1.019 (1.002-1.035); SQUAMOUS EPITHELIAL CELL UR AU 0 /HPF (0-6); UROBILINOGEN, URINE AUTO 0.2 mg/dL (0.0-2.0); WBC, URINE AUTO 1 /HPF (0-3)
== END ==
LOC: M LAB REF 12:36
DX: C71.9 Malignant neoplasm of brain, unspecified (principal)
CPT/HCPCS: 81001

== ENCOUNTER → 2017-11-12 | Outpatient (CLI) | payer MEDICARE, OTHER, MEDICAID | LOC: M LRY 09:10 | DX: Z87.01 Personal history of pneumonia (recurrent) (principal) | CPT/HCPCS: 71046; G0463 ==

== ENCOUNTER → 2017-11-20 | Outpatient (REF) | payer MEDICARE, MEDICAID ==
[2017-11-20 13:52] LABS: AMORPHOUS SEDIMENT SMALL (NEGATIVE); APPEARANCE, URINE TURBID (CLEAR); BACTERIA, URINE AUTO NEGATIVE (NEGATIVE); BILIRUBIN, URINE AUTO NEGATIVE (NEGATIVE); BLOOD, URINE BLOOD NEGATIVE (NEGATIVE); COLOR, URINE YELLOW (YELLOW); GLUCOSE, URINE (UA) AUTO NEGATIVE (NEGATIVE); KETONE, URINE AUTO NEGATIVE (NEGATIVE); LEUKOCYTE ESTERASE, URINE AUTO NEGATIVE (NEGATIVE); MUCUS, URINE SMALL (NEGATIVE); NITRITE, URINE AUTO NEGATIVE (NEGATIVE); PROTEIN, URINE AUTO NEGATIVE (NEGATIVE); RBC, URINE AUTO 0 /HPF (0-3); SPECIFIC GRAVITY URINE AUTO 1.026 (1.002-1.035); SQUAMOUS EPITHELIAL CELL UR AU 0 /HPF (0-6); WBC, URINE AUTO 0 /HPF (0-3)
== END ==
LOC: M LAB REF 13:19
DX: C71.9 Malignant neoplasm of brain, unspecified (principal)
CPT/HCPCS: 81001

== ENCOUNTER → 2017-12-04 | Outpatient (REF) | payer MEDICARE, MEDICAID ==
[2017-12-04 13:40] LABS: AMORPHOUS SEDIMENT MODERATE (NEGATIVE); APPEARANCE, URINE TURBID (CLEAR); BACTERIA, URINE AUTO NEGATIVE (NEGATIVE); BILIRUBIN, URINE AUTO NEGATIVE (NEGATIVE); BLOOD, URINE BLOOD NEGATIVE (NEGATIVE); COLOR, URINE YELLOW (YELLOW); GLUCOSE, URINE (UA) AUTO NEGATIVE (NEGATIVE); KETONE, URINE AUTO NEGATIVE (NEGATIVE); LEUKOCYTE ESTERASE, URINE AUTO NEGATIVE (NEGATIVE); MUCUS, URINE SMALL (NEGATIVE); NITRITE, URINE AUTO NEGATIVE (NEGATIVE); PROTEIN, URINE AUTO NEGATIVE (NEGATIVE); RBC, URINE AUTO 0 /HPF (0-3); SPECIFIC GRAVITY URINE AUTO 1.021 (1.002-1.035); SQUAMOUS EPITHELIAL CELL UR AU 0 /HPF (0-6); UROBILINOGEN, URINE AUTO 0.2 mg/dL (0.0-2.0); WBC, URINE AUTO 0 /HPF (0-3)
== END ==
LOC: M LAB REF 13:14
DX: C71.9 Malignant neoplasm of brain, unspecified (principal)
CPT/HCPCS: 81001

== ENCOUNTER → 2017-12-18 | Outpatient (REF) | payer MEDICARE, MEDICAID, OTHER ==
[2017-12-18 14:03] LABS: APPEARANCE, URINE CLEAR (CLEAR); BACTERIA, URINE AUTO NEGATIVE (NEGATIVE); BILIRUBIN, URINE AUTO NEGATIVE (NEGATIVE); BLOOD, URINE BLOOD NEGATIVE (NEGATIVE); COLOR, URINE YELLOW (YELLOW); GLUCOSE, URINE (UA) AUTO NEGATIVE (NEGATIVE); KETONE, URINE AUTO NEGATIVE (NEGATIVE); LEUKOCYTE ESTERASE, URINE AUTO NEGATIVE (NEGATIVE); MUCUS, URINE SMALL (NEGATIVE); NITRITE, URINE AUTO NEGATIVE (NEGATIVE); PROTEIN, URINE AUTO NEGATIVE (NEGATIVE); RBC, URINE AUTO 0 /HPF (0-3); SPECIFIC GRAVITY URINE AUTO 1.015 (1.002-1.035); SQUAMOUS EPITHELIAL CELL UR AU 0 /HPF (0-6); UROBILINOGEN, URINE AUTO 0.2 mg/dL (0.0-2.0); WBC, URINE AUTO 2 /HPF (0-3)
== END ==
LOC: M LAB REF 13:32
DX: C71.9 Malignant neoplasm of brain, unspecified (principal)
CPT/HCPCS: 81001

== ENCOUNTER → 2018-01-01 | Outpatient (REF) | payer MEDICARE, OTHER, MEDICAID ==
[2018-01-01 13:52] LABS: APPEARANCE, URINE CLEAR (CLEAR); BACTERIA, URINE AUTO NEGATIVE (NEGATIVE); BILIRUBIN, URINE AUTO NEGATIVE (NEGATIVE); BLOOD, URINE BLOOD NEGATIVE (NEGATIVE); COLOR, URINE STRAW (YELLOW); GLUCOSE, URINE (UA) AUTO NEGATIVE (NEGATIVE); KETONE, URINE AUTO NEGATIVE (NEGATIVE); LEUKOCYTE ESTERASE, URINE AUTO NEGATIVE (NEGATIVE); NITRITE, URINE AUTO NEGATIVE (NEGATIVE); PROTEIN, URINE AUTO NEGATIVE (NEGATIVE); RBC, URINE AUTO 1 /HPF (0-3); SPECIFIC GRAVITY URINE AUTO 1.005 (1.002-1.035); SQUAMOUS EPITHELIAL CELL UR AU 0 /HPF (0-6); UROBILINOGEN, URINE AUTO 0.2 mg/dL (0.0-2.0); WBC, URINE AUTO 0 /HPF (0-3)
== END ==
LOC: M LAB REF 12:55
DX: C72.9 Malignant neoplasm of central nervous system, unspecified (principal)
CPT/HCPCS: 81001

== ENCOUNTER → 2018-01-28 | Outpatient (CLI) | payer MEDICARE, MEDICAID | LOC: M CARPUL 09:33 | DX: C71.9 Malignant neoplasm of brain, unspecified (principal) | CPT/HCPCS: 94010 ==

== ENCOUNTER → 2018-01-28 | Outpatient (REF) | payer MEDICARE, MEDICAID ==
[2018-01-28 13:18] LABS: APPEARANCE, URINE CLEAR (CLEAR); BACTERIA, URINE AUTO NEGATIVE (NEGATIVE); BILIRUBIN, URINE AUTO NEGATIVE (NEGATIVE); BLOOD, URINE BLOOD NEGATIVE (NEGATIVE); COLOR, URINE STRAW (YELLOW); GLUCOSE, URINE (UA) AUTO NEGATIVE (NEGATIVE); KETONE, URINE AUTO NEGATIVE (NEGATIVE); LEUKOCYTE ESTERASE, URINE AUTO NEGATIVE (NEGATIVE); MUCUS, URINE SMALL (NEGATIVE); NITRITE, URINE AUTO NEGATIVE (NEGATIVE); PROTEIN, URINE AUTO NEGATIVE (NEGATIVE); RBC, URINE AUTO 0 /HPF (0-3); SPECIFIC GRAVITY URINE AUTO 1.005 (1.002-1.035); SQUAMOUS EPITHELIAL CELL UR AU 0 /HPF (0-6); UROBILINOGEN, URINE AUTO 0.2 mg/dL (0.0-2.0); WBC, URINE AUTO 0 /HPF (0-3)
== END ==
LOC: M LAB REF 12:47
DX: C72.9 Malignant neoplasm of central nervous system, unspecified (principal)

== ENCOUNTER → 2018-02-11 | Outpatient (REF) | payer MEDICARE, MEDICAID ==
[2018-02-11 14:17] LABS: APPEARANCE, URINE CLEAR (CLEAR); BACTERIA, URINE AUTO NEGATIVE (NEGATIVE); BILIRUBIN, URINE AUTO NEGATIVE (NEGATIVE); BLOOD, URINE BLOOD NEGATIVE (NEGATIVE); COLOR, URINE STRAW (YELLOW); GLUCOSE, URINE (UA) AUTO NEGATIVE (NEGATIVE); KETONE, URINE AUTO NEGATIVE (NEGATIVE); LEUKOCYTE ESTERASE, URINE AUTO NEGATIVE (NEGATIVE); NITRITE, URINE AUTO NEGATIVE (NEGATIVE); PROTEIN, URINE AUTO NEGATIVE (NEGATIVE); RBC, URINE AUTO 0 /HPF (0-3); SPECIFIC GRAVITY URINE AUTO 1.003 (1.002-1.035); SQUAMOUS EPITHELIAL CELL UR AU 0 /HPF (0-6); UROBILINOGEN, URINE AUTO 0.2 mg/dL (0.0-2.0); WBC, URINE AUTO 0 /HPF (0-3)
== END ==
LOC: M ONCM 09:50
DX: C72.9 Malignant neoplasm of central nervous system, unspecified (principal)
CPT/HCPCS: 81001

== ENCOUNTER → 2018-02-25 | Outpatient (REF) | payer MEDICARE, MEDICAID ==
[2018-02-25 14:25] LABS: APPEARANCE, URINE CLEAR (CLEAR); BACTERIA, URINE AUTO NEGATIVE (NEGATIVE); BILIRUBIN, URINE AUTO NEGATIVE (NEGATIVE); BLOOD, URINE BLOOD NEGATIVE (NEGATIVE); COLOR, URINE STRAW (YELLOW); GLUCOSE, URINE (UA) AUTO NEGATIVE (NEGATIVE); KETONE, URINE AUTO NEGATIVE (NEGATIVE); LEUKOCYTE ESTERASE, URINE AUTO NEGATIVE (NEGATIVE); NITRITE, URINE AUTO NEGATIVE (NEGATIVE); PROTEIN, URINE AUTO NEGATIVE (NEGATIVE); RBC, URINE AUTO 2 /HPF (0-3); SPECIFIC GRAVITY URINE AUTO 1.003 (1.002-1.035); SQUAMOUS EPITHELIAL CELL UR AU 0 /HPF (0-6); UROBILINOGEN, URINE AUTO 0.2 mg/dL (0.0-2.0); WBC, URINE AUTO 0 /HPF (0-3)
== END ==
LOC: M LAB REF 13:16
DX: C72.9 Malignant neoplasm of central nervous system, unspecified (principal)
CPT/HCPCS: 81001

== ENCOUNTER → 2018-03-12 | Outpatient (REF) | payer MEDICARE, MEDICAID ==
[2018-03-12 13:16] LABS: APPEARANCE, URINE CLEAR (CLEAR); BACTERIA, URINE AUTO NEGATIVE (NEGATIVE); BILIRUBIN, URINE AUTO NEGATIVE (NEGATIVE); BLOOD, URINE BLOOD NEGATIVE (NEGATIVE); COLOR, URINE STRAW (YELLOW); GLUCOSE, URINE (UA) AUTO NEGATIVE (NEGATIVE); KETONE, URINE AUTO NEGATIVE (NEGATIVE); LEUKOCYTE ESTERASE, URINE AUTO NEGATIVE (NEGATIVE); NITRITE, URINE AUTO NEGATIVE (NEGATIVE); PROTEIN, URINE AUTO NEGATIVE (NEGATIVE); RBC, URINE AUTO 1 /HPF (0-3); SPECIFIC GRAVITY URINE AUTO 1.006 (1.002-1.035); SQUAMOUS EPITHELIAL CELL UR AU 0 /HPF (0-6); UROBILINOGEN, URINE AUTO 0.2 mg/dL (0.0-2.0); WBC, URINE AUTO 0 /HPF (0-3)
== END ==
LOC: M LAB REF 13:06
DX: C72.9 Malignant neoplasm of central nervous system, unspecified (principal)
CPT/HCPCS: 81001

== ENCOUNTER 2018-03-18 12:56 | Emergency (ER) | payer MEDICARE, MEDICAID ==
[2018-03-18 13:50] LABS: BASO # 0.1 10^3/uL (0.0-0.2); BASO % 0.9 % (0.0-1.0); EOS # 0.2 10^3/uL (0.0-0.50); EOS % 2.8 % (0.0-3.0); HEMATOCRIT 43.8 % (42.0-52.0); HEMOGLOBIN 15.1 g/dl (13.5-17.5); IMMATURE GRANULOCYTE % 0.3 % (0-3.0); LYMPH # 1.5 10^3/uL (1.5-4.5); LYMPH % 25.7 % (24.0-44.0); MEAN CORPUSCULAR HEMOGLOBIN 31.5 pg (27.0-33.0); MEAN CORPUSCULAR HGB CONC 34.5 g/dl (32.0-36.5); MEAN CORPUSCULAR VOLUME 91.4 fl (80.0-96.0); MONO # 0.6 10^3/uL (0.0-0.8); MONO % 10.4 % (0.0-5.0); NEUTROPHILS # 3.5 10^3/uL (1.8-7.7); NEUTROPHILS % 59.9 % (36.0-66.0); PLATELET COUNT, AUTOMATED 136 10^3/uL (150-450); RED BLOOD COUNT 4.79 10^6/uL (4.30-6.10); WHITE BLOOD COUNT 5.8 10^3/uL (4.0-10.0)
[2018-03-18 14:01] LABS: INR 0.95; PROTHROMBIN TIME 12.8 SECONDS (12.1-14.4)
[2018-03-18 14:04] LABS: ALBUMIN 3.6 GM/DL (3.2-5.2); ALBUMIN/GLOBULIN RATIO 0.82 (1.00-1.93); ALKALINE PHOSPHATASE 74 U/L (45-117); ALT/SGPT 55 U/L (12-78); ANION GAP 5 MEQ/L (8-16); AST/SGOT 30 U/L (7-37); BILIRUBIN,DIRECT 0.1 MG/DL (0.0-0.2); BILIRUBIN,TOTAL 0.4 MG/DL (0.2-1.0); BLOOD UREA NITROGEN 17 MG/DL (7-18); CALCIUM LEVEL 8.8 MG/DL (8.5-10.1); CARBON DIOXIDE LEVEL 25 MEQ/L (21-32); CHLORIDE LEVEL 110 MEQ/L (98-107); CREATININE FOR GFR 0.89 MG/DL (0.70-1.30); GLOMERULAR FILTRATION RATE > 60.0 (>60); GLUCOSE, FASTING 99 MG/DL (70-100); LIPASE 115 U/L (73-393); SODIUM LEVEL 140 MEQ/L (136-145)
[2018-03-18] MEDS: NS 1,000 ML IV (15:00)
[2018-03-18] MEDS: ONDANSETRON 4MG/2ML VIAL (J2405) IV (15:00)
[2018-03-18] MEDS: PANTOPRAZOLE 40MG INJ (PROTONIX) (C9113) IV (15:00)
[2018-03-18] MEDS: GASTROGRAFIN SOLUTION 30ML PO ×2 (15:01→15:30)
[2018-03-18] MEDS ORDERED: ISOVUE-370 76% 100ML VIAL (Q9967) As Ordered (16:20)
== END 2018-03-18 17:47 | disposition home or self-care (01) ==
LOC: M ED 12:56
DX: K92.2 Gastrointestinal hemorrhage, unspecified (principal); K64.9 Unspecified hemorrhoids; Z87.891 Personal history of nicotine dependence; K76.0 Fatty (change of) liver, not elsewhere classified; N28.1 Cyst of kidney, acquired; Z79.899 Other long term (current) drug therapy; Z88.8 Allergy status to other drugs, medicaments and biological substances
CPT/HCPCS: C9113

== ENCOUNTER → 2018-03-25 | Outpatient (REF) | payer MEDICARE, MEDICAID ==
[2018-03-25 13:43] LABS: APPEARANCE, URINE CLEAR (CLEAR); BACTERIA, URINE AUTO NEGATIVE (NEGATIVE); BILIRUBIN, URINE AUTO NEGATIVE (NEGATIVE); BLOOD, URINE BLOOD NEGATIVE (NEGATIVE); COLOR, URINE STRAW (YELLOW); GLUCOSE, URINE (UA) AUTO NEGATIVE (NEGATIVE); KETONE, URINE AUTO NEGATIVE (NEGATIVE); LEUKOCYTE ESTERASE, URINE AUTO NEGATIVE (NEGATIVE); NITRITE, URINE AUTO NEGATIVE (NEGATIVE); PROTEIN, URINE AUTO NEGATIVE (NEGATIVE); RBC, URINE AUTO 0 /HPF (0-3); SPECIFIC GRAVITY URINE AUTO 1.003 (1.002-1.035); SQUAMOUS EPITHELIAL CELL UR AU 0 /HPF (0-6); UROBILINOGEN, URINE AUTO 0.2 mg/dL (0.0-2.0); WBC, URINE AUTO 0 /HPF (0-3)
== END ==
LOC: M LAB REF 13:27
DX: C72.9 Malignant neoplasm of central nervous system, unspecified (principal)
CPT/HCPCS: 81001

== ENCOUNTER → 2018-04-08 | Outpatient (REF) | payer MEDICARE, MEDICAID ==
[2018-04-08 13:49] LABS: APPEARANCE, URINE CLEAR (CLEAR); BACTERIA, URINE AUTO NEGATIVE (NEGATIVE); BILIRUBIN, URINE AUTO NEGATIVE (NEGATIVE); BLOOD, URINE BLOOD NEGATIVE (NEGATIVE); COLOR, URINE STRAW (YELLOW); GLUCOSE, URINE (UA) AUTO NEGATIVE (NEGATIVE); KETONE, URINE AUTO NEGATIVE (NEGATIVE); LEUKOCYTE ESTERASE, URINE AUTO NEGATIVE (NEGATIVE); MUCUS, URINE SMALL (NEGATIVE); NITRITE, URINE AUTO NEGATIVE (NEGATIVE); PROTEIN, URINE AUTO NEGATIVE (NEGATIVE); RBC, URINE AUTO 2 /HPF (0-3); SPECIFIC GRAVITY URINE AUTO 1.004 (1.002-1.035); SQUAMOUS EPITHELIAL CELL UR AU 0 /HPF (0-6); UROBILINOGEN, URINE AUTO 0.2 mg/dL (0.0-2.0); WBC, URINE AUTO 0 /HPF (0-3)
== END ==
LOC: M LAB REF 13:17
DX: C72.9 Malignant neoplasm of central nervous system, unspecified (principal)
CPT/HCPCS: 81001

== ENCOUNTER → 2018-04-22 | Outpatient (REF) | payer MEDICARE, OTHER ==
[2018-04-22 11:09] LABS: APPEARANCE, URINE CLEAR (CLEAR); BACTERIA, URINE AUTO NEGATIVE (NEGATIVE); BILIRUBIN, URINE AUTO NEGATIVE (NEGATIVE); BLOOD, URINE BLOOD NEGATIVE (NEGATIVE); COLOR, URINE YELLOW (YELLOW); GLUCOSE, URINE (UA) AUTO NEGATIVE (NEGATIVE); KETONE, URINE AUTO NEGATIVE (NEGATIVE); LEUKOCYTE ESTERASE, URINE AUTO NEGATIVE (NEGATIVE); MUCUS, URINE SMALL (NEGATIVE); NITRITE, URINE AUTO NEGATIVE (NEGATIVE); PROTEIN, URINE AUTO NEGATIVE (NEGATIVE); RBC, URINE AUTO 1 /HPF (0-3); SPECIFIC GRAVITY URINE AUTO 1.011 (1.002-1.035); SQUAMOUS EPITHELIAL CELL UR AU 0 /HPF (0-6); WBC, URINE AUTO 2 /HPF (0-3)
== END ==
LOC: M LAB REF 10:45
DX: C72.9 Malignant neoplasm of central nervous system, unspecified (principal)
CPT/HCPCS: 81001

== ENCOUNTER → 2018-05-06 | Outpatient (REF) | payer MEDICARE, OTHER, MEDICAID ==
[2018-05-06 14:22] LABS: APPEARANCE, URINE CLEAR (CLEAR); BACTERIA, URINE AUTO NEGATIVE (NEGATIVE); BILIRUBIN, URINE AUTO NEGATIVE (NEGATIVE); BLOOD, URINE BLOOD NEGATIVE (NEGATIVE); COLOR, URINE STRAW (YELLOW); GLUCOSE, URINE (UA) AUTO NEGATIVE (NEGATIVE); KETONE, URINE AUTO NEGATIVE (NEGATIVE); LEUKOCYTE ESTERASE, URINE AUTO NEGATIVE (NEGATIVE); NITRITE, URINE AUTO NEGATIVE (NEGATIVE); PROTEIN, URINE AUTO NEGATIVE (NEGATIVE); RBC, URINE AUTO 4 /HPF (0-3); SPECIFIC GRAVITY URINE AUTO 1.008 (1.002-1.035); SQUAMOUS EPITHELIAL CELL UR AU 0 /HPF (0-6); UROBILINOGEN, URINE AUTO 0.2 mg/dL (0.0-2.0); WBC, URINE AUTO 1 /HPF (0-3)
== END ==
LOC: M LAB REF 13:05
DX: C72.9 Malignant neoplasm of central nervous system, unspecified (principal)
CPT/HCPCS: 81001

== ENCOUNTER → 2018-05-20 | Outpatient (REF) | payer MEDICARE, OTHER, MEDICAID ==
[2018-05-20 14:05] LABS: APPEARANCE, URINE CLEAR (CLEAR); BACTERIA, URINE AUTO NEGATIVE (NEGATIVE); BILIRUBIN, URINE AUTO NEGATIVE (NEGATIVE); BLOOD, URINE BLOOD 1+ (NEGATIVE); COLOR, URINE YELLOW (YELLOW); GLUCOSE, URINE (UA) AUTO NEGATIVE (NEGATIVE); KETONE, URINE AUTO NEGATIVE (NEGATIVE); LEUKOCYTE ESTERASE, URINE AUTO NEGATIVE (NEGATIVE); NITRITE, URINE AUTO NEGATIVE (NEGATIVE); PROTEIN, URINE AUTO NEGATIVE (NEGATIVE); RBC, URINE AUTO 1 /HPF (0-3); SPECIFIC GRAVITY URINE AUTO 1.005 (1.002-1.035); SQUAMOUS EPITHELIAL CELL UR AU 0 /HPF (0-6); UROBILINOGEN, URINE AUTO 0.2 mg/dL (0.0-2.0); WBC, URINE AUTO 1 /HPF (0-3)
== END ==
LOC: M LAB REF 13:15
DX: C72.9 Malignant neoplasm of central nervous system, unspecified (principal)
CPT/HCPCS: 81001

== ENCOUNTER → 2018-06-03 | Outpatient (REF) | payer MEDICARE, MEDICAID ==
[2018-06-03 11:13] LABS: APPEARANCE, URINE CLEAR (CLEAR); BACTERIA, URINE AUTO NEGATIVE (NEGATIVE); BILIRUBIN, URINE AUTO NEGATIVE (NEGATIVE); BLOOD, URINE BLOOD 1+ (NEGATIVE); COLOR, URINE YELLOW (YELLOW); GLUCOSE, URINE (UA) AUTO NEGATIVE (NEGATIVE); KETONE, URINE AUTO NEGATIVE (NEGATIVE); LEUKOCYTE ESTERASE, URINE AUTO NEGATIVE (NEGATIVE); MUCUS, URINE SMALL (NEGATIVE); NITRITE, URINE AUTO NEGATIVE (NEGATIVE); PROTEIN, URINE AUTO NEGATIVE (NEGATIVE); RBC, URINE AUTO 0 /HPF (0-3); SQUAMOUS EPITHELIAL CELL UR AU 0 /HPF (0-6); UROBILINOGEN, URINE AUTO 0.2 mg/dL (0.0-2.0); WBC, URINE AUTO 1 /HPF (0-3)
== END ==
LOC: M LAB REF 10:50
DX: C72.9 Malignant neoplasm of central nervous system, unspecified (principal)
CPT/HCPCS: 81001

== ENCOUNTER 2018-06-28 13:49 | Emergency (ER) | payer MEDICARE, MEDICAID | END 2018-06-28 16:35 | disposition home or self-care (01) | LOC: M ED 13:49 | DX: S62.630A Displaced fracture of distal phalanx of right index finger, initial encounter for closed fracture (principal); W23.0XXA Caught, crushed, jammed, or pinched between moving objects, initial encounter; Y92.89 Other specified places as the place of occurrence of the external cause; C71.9 Malignant neoplasm of brain, unspecified; Z92.21 Personal history of antineoplastic chemotherapy; Z79.899 Other long term (current) drug therapy; Z88.8 Allergy status to other drugs, medicaments and biological substances | CPT/HCPCS: 73140 ==

== ENCOUNTER 2018-09-13 12:43 | Outpatient (CLI) | payer MEDICARE, MEDICAID ==
[~2018-09-13] VITALS: Ht 182.9 cm; Wt 93.2 kg
[~2018-09-13 12:43] MED LIST changes: +AMLO5TAB6 PO; +AVASINJ IV; +KEFL500C17 PO; +KEPP1TAB PO; +NORCOTAB PO; +PRED10TA2 PO; +PROC1AER16 PR; +ZOFR4TAB14 PO; +[UNRECOGNIZED DRUG - CODE]
[2018-09-13] MEDS ORDERED: AZIT-12 PO (12:49)
[2018-09-13] MEDS ORDERED: dexameTHASONE 20 MG/5 ML VIAL (J1100) IV ONE (13:00)
[2018-09-13 13:27] LABS: BASO # 0.1 10^3/uL (0.0-0.2); BASO % 0.4 % (0.0-1.0); EOS % 0.1 % (0.0-3.0); HEMATOCRIT 46.9 % (42.0-52.0); HEMOGLOBIN 15.7 g/dl (13.5-17.5); LYMPH # 1.6 10^3/uL (1.5-4.5); MEAN CORPUSCULAR HEMOGLOBIN 30.6 pg (27.0-33.0); MEAN CORPUSCULAR HGB CONC 33.5 g/dl (32.0-36.5); MEAN CORPUSCULAR VOLUME 91.4 fl (80.0-96.0); MONO # 1.7 10^3/uL (0.0-0.8); MONO % 11.4 % (0.0-5.0); NEUTROPHILS # 11.2 10^3/uL (1.8-7.7); NEUTROPHILS % 76.7 % (36.0-66.0); PLATELET COUNT, AUTOMATED 196 10^3/uL (150-450); RED BLOOD COUNT 5.13 10^6/uL (4.30-6.10); WHITE BLOOD COUNT 14.5 10^3/uL (4.0-10.0)
[2018-09-13] MEDS: NS 1,000 ML IV SCH ×2 (13:35→16:36)
[2018-09-13 13:56] LABS: BLOOD UREA NITROGEN 13 MG/DL (7-18); CALCIUM LEVEL 8.9 MG/DL (8.5-10.1); CARBON DIOXIDE LEVEL 27 MEQ/L (21-32); CHLORIDE LEVEL 105 MEQ/L (98-107); CK-MB VALUE MASS < 1.0 NG/ML (<3.6); CPK CREATINE PHOSPHOKINASE 41 U/L (39-308); CREATININE FOR GFR 0.72 MG/DL (0.70-1.30); GLOMERULAR FILTRATION RATE > 60.0 (>60); GLUCOSE, FASTING 96 MG/DL (70-100); MB/CK RELATIVE INDEX 2.44 (< OR =4); POTASSIUM SERUM 4.1 MEQ/L (3.5-5.1); SODIUM LEVEL 140 MEQ/L (136-145); TROPONIN I < 0.02 NG/ML (< 0.10)
[2018-09-13] MEDS ORDERED: ISOVUE-370 76% 100ML VIAL (Q9967) As Ordered ONE (14:00)
--- NOTE | 2018-09-13 15:25 | REP ---
CT NECK WITH CONTRAST; HISTORY: Throat pain. There is enlargement of the tonsils, greater on the right than on the left. A 2.9 cm hypodensity is present in the right tonsil. This may represent an enlarged lymph node versus early abscess. Calcification is present in the left tonsil. This is secondary to previous inflammatory disease. There is extension of the tonsillar enlargement into the soft palate. There is inferior extension into the lateral chowdary of the upper oropharynx. There is mild mass effect on the upper oropharynx. The naso- and hypopharynx, larynx, and subglottic trachea are normal in appearance. The salivary and thyroid glands are normal in size and density. An enlarged lymph node 1.2 cm in width is present in the right internal jugular chain at the level of the oropharynx. An enlarged lymph node 1.3 cm in width is present in the left internal jugular chain at the level of the oropharynx. Small lymph nodes, less than 1 cm in size are present in the posterior triangles and submental areas. The lung apices are clear. The visualized sinuses are clear. IMPRESSION: The above findings are consistent with tonsillitis and lymphadenitis. There is mild mass effect on the upper oropharynx. Hypodensity is present in the right tonsil. This may represent a suppurative lymph node or early abscess formation. Electronically Signed by Eliot Kwon MD 09/13/2018 03:27 P
[2018-09-13] MEDS ORDERED: LIDOCAINE W/EPINEPHRINE 1% 20ML VIAL As Ordered ONE (16:09)
[2018-09-13] MEDS ORDERED: MORPHINE 10 MG/ML 1ML VIAL (J2270) IV ONE (16:30)
[2018-09-13] MEDS ORDERED: LIDOCAINE W/EPINEPHRINE 1% 20ML VIAL SC ONE (16:30)
[2018-09-13] MEDS ORDERED: ACET500T15 PO (16:33)
[2018-09-13] MEDS ORDERED: LEVE500T64 PO (16:33)
[2018-09-13 19:00] VITALS: BP 153/52
[2018-09-13] MEDS ORDERED: PERCOCET 5MG/325MG TAB PO PRN (19:30)
[2018-09-13] MEDS ORDERED: LR 1,000 ML IV SCH (19:30)
[2018-09-13] MEDS ORDERED: MORPHINE 4 MG/ML 1ML VIAL/SYRINGE (J2270) IV PRN (19:30)
[2018-09-13] MEDS: CLINDAMYCIN 900 MG in APPROPRIATE DILUENT 1 EA IV SCH (21:31)
[2018-09-13] MEDS: levETIRAcetam 250MG TABLET (KEPPRA) PO SCH (21:31)
[2018-09-13 22:00] VITALS: BP 150/84
[2018-09-14] MEDS: CLINDAMYCIN 900 MG in APPROPRIATE DILUENT 1 EA IV SCH ×2 (03:00→09:34)
[2018-09-14 06:00] VITALS: BP 131/86
[2018-09-14 06:12] LABS: HEMATOCRIT 42.5 % (42.0-52.0); HEMOGLOBIN 13.9 g/dl (13.5-17.5); MEAN CORPUSCULAR HEMOGLOBIN 30.3 pg (27.0-33.0); MEAN CORPUSCULAR HGB CONC 32.7 g/dl (32.0-36.5); MEAN CORPUSCULAR VOLUME 92.8 fl (80.0-96.0); PLATELET COUNT, AUTOMATED 195 10^3/uL (150-450); RED BLOOD COUNT 4.58 10^6/uL (4.30-6.10); WHITE BLOOD COUNT 10.8 10^3/uL (4.0-10.0)
[2018-09-14 06:41] LABS: BLOOD UREA NITROGEN 22 MG/DL (7-18); CALCIUM LEVEL 8.6 MG/DL (8.5-10.1); CARBON DIOXIDE LEVEL 27 MEQ/L (21-32); CHLORIDE LEVEL 107 MEQ/L (98-107); CREATININE FOR GFR 0.68 MG/DL (0.70-1.30); GLOMERULAR FILTRATION RATE > 60.0 (>60); GLUCOSE, FASTING 108 MG/DL (70-100); POTASSIUM SERUM 4.2 MEQ/L (3.5-5.1); SODIUM LEVEL 141 MEQ/L (136-145)
--- NOTE | 2018-09-14 07:58 | HPE ---
DATE OF ADMISSION: 09/13/2018 Ottoniel Babcock is a 43-year-old gentleman who presents with history of a sore throat that started 10 days ago when he began recent therapy for brain cancer. Patient received three doses of radiation therapy and one dose of chemotherapy. His sore throat has progressed that he is unable to swallow. It is worse on the right side. He has not had this problem in the past. Seven years ago, he was diagnosed with having a brain cancer. He had surgery and radiation therapy and he has had recurrences and remissions since then. He has had a recent biopsy which shows a recurrence of the cancer. Patient is and has four children and he has been unemployed since this began on disability because of his tumor. He has a history of hypertension. MEDICATIONS: He is on amlodipine and another medication that he uses for seizure disorder. Patient is alert and oriented. He has had a hot potato-like voice. He is sitting up breathing well. Examination shows that he has a large swelling in the peritonsillar area on the right side. CT scan confirms an abscess on that right side. I infiltrated the oral glottic with epinephrine. I made an incision and drained a large abscess from the peritonsillar area on that side. Patient tolerated the procedure well. No bleeding afterwards. Patient will be admitted and placed on IV antibiotics and clear liquids until he is able to swallow well.
[2018-09-14] MEDS ORDERED: amLODIPine 5 MG TAB PO SCH (09:00)
[2018-09-14] MEDS: levETIRAcetam 250MG TABLET (KEPPRA) PO SCH (09:33)
[2018-09-14 09:34] VITALS: BP 131/86
[2018-09-14] MEDS ORDERED: CLIN150C14 PO (13:15)
--- NOTE | 2018-09-14 13:40 | ECGEPIP ---
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
[2018-10-01] MEDS ORDERED: AMLO10TA5 PO (09:41)
== END 2018-09-14 13:55 | disposition home or self-care (01) ==
LOC: M ED 12:43 → M OPCLI5PR 16:25 → M SDC 16:30 → M MS5PR 18:55 → M ED 18:57 → M OPCLI5PR 09-14 13:55 → M SDC 09-14 13:55 → M MS5PR 09-14 13:55
PROVIDERS: ATTEND Hospitalist
DX: R22.1 Localized swelling, mass and lump, neck (principal); J36 Peritonsillar abscess
CPT/HCPCS: 36415; 70491; 80048; 82550; 82553; 84484; 85025; 85027; 87070; 87205; 87486; 87581; 87633; 87798; 87880; 93005; 93041; 94760; 96361; 96365; 96366; 96375; 96376; 99285; J1100; J2270; Q9967

== ENCOUNTER → 2018-10-03 | Outpatient (CLI) | payer MEDICARE, MEDICAID ==
[~2018-10-03] MED LIST changes: +ACET500T15 PO; +AMLO10TA5 PO; +AZIT-12 PO; +CLIN150C14 PO; +LEVE500T64 PO
[2018-10-03 11:48] LABS: BASO # 0.1 10^3/uL (0.0-0.2); BASO % 1.2 % (0.0-1.0); EOS # 0.2 10^3/uL (0.0-0.50); EOS % 3.4 % (0.0-3.0); HEMATOCRIT 47.9 % (42.0-52.0); HEMOGLOBIN 15.9 g/dl (13.5-17.5); LYMPH # 1.7 10^3/uL (1.5-4.5); LYMPH % 29.6 % (24.0-44.0); MEAN CORPUSCULAR HEMOGLOBIN 30.6 pg (27.0-33.0); MEAN CORPUSCULAR HGB CONC 33.2 g/dl (32.0-36.5); MEAN CORPUSCULAR VOLUME 92.1 fl (80.0-96.0); MONO # 0.6 10^3/uL (0.0-0.8); MONO % 10.7 % (0.0-5.0); NEUTROPHILS # 3.1 10^3/uL (1.8-7.7); NEUTROPHILS % 54.9 % (36.0-66.0); PLATELET COUNT, AUTOMATED 126 10^3/uL (150-450); WHITE BLOOD COUNT 5.6 10^3/uL (4.0-10.0)
[2018-10-03 12:19] LABS: BLOOD UREA NITROGEN 17 MG/DL (7-18); CALCIUM LEVEL 8.7 MG/DL (8.5-10.1); CARBON DIOXIDE LEVEL 28 MEQ/L (21-32); CHLORIDE LEVEL 106 MEQ/L (98-107); CREATININE FOR GFR 0.78 MG/DL (0.70-1.30); GLOMERULAR FILTRATION RATE > 60.0 (>60); GLUCOSE, FASTING 90 MG/DL (70-100); POTASSIUM SERUM 4.5 MEQ/L (3.5-5.1); SODIUM LEVEL 140 MEQ/L (136-145)
== END ==
LOC: M LAB 11:22
PROVIDERS: ATTEND Family Medicine
DX: I15.9 Secondary hypertension, unspecified (principal); Z79.899 Other long term (current) drug therapy

== ENCOUNTER 2019-01-08 22:23 | Inpatient (IN) | payer MEDICAID, MEDICARE ==
[~2019-01-08] VITALS: Ht 188 cm; Wt 92.1 kg
[~2019-01-08 22:23] MED LIST changes: +HYDR-3715 PO; -LEVE500T64 PO; +LEVE500T88 PO; -NORCOTAB PO; +OSEL75CA PO
[2019-01-08 23:28] LABS: HEMATOCRIT 38.3 % (42.0-52.0); HEMOGLOBIN 12.8 g/dl (13.5-17.5); MEAN CORPUSCULAR HEMOGLOBIN 32.1 pg (27.0-33.0); MEAN CORPUSCULAR HGB CONC 33.4 g/dl (32.0-36.5); PLATELET COUNT, AUTOMATED 132 10^3/uL (150-450); RED BLOOD COUNT 3.99 10^6/uL (4.30-6.10)
[2019-01-08] MEDS ORDERED: NS 1,000 ML IV ONE (23:30)
--- NOTE | 2019-01-08 23:43 | REPVR ---
EXAM: CT Head Without Contrast EXAM DATE/TIME: 01/08/2019 10:39 PM CLINICAL HISTORY: 43 years old, male; Signs and symptoms; Altered mental status/memory loss; Confusion or disorientation; Prior surgery; Surgery date: 6+ months TECHNIQUE: Imaging protocol: Axial computed tomography images of the head/brain without contrast. Radiation optimization: All CT scans at this facility use at least one of these dose optimization techniques: automated exposure control; mA and/or kV adjustment per patient size (includes targeted exams where dose is matched to clinical indication); or iterative reconstruction. COMPARISON: No relevant prior studies available. FINDINGS: The patient is status post a left temporal craniotomy with an approximate 9.5 cm diameter craniotomy bone flap appearing to be in good position, secured by metallic plates and screw fixation. Multiple left parietal audi holes are noted, covered by metallic plates. There is slight brain protrusion into anterior left parietal audi hole without evidence of parenchymal edema. There is no acute intracranial hemorrhage, extra axial hematoma, or midline shift. The ventricles are not dilated. Cavum septum pellucidum incidentally noted. There is encephalomalacia and parenchymal volume loss involving a segment of the left temporal lobe, possibly postsurgical change. No CT findings are seen at the current time to suggest changes of acute territorial vascular infarction. Note is made however, that CT changes, may lag clinical findings in acute CVA. If clinically indicated, consideration could be given to MRI with diffusion weighted imaging, due to its greater sensitivity, for detection of acute ischemic change. Intracranial calcifications are incidentally noted. No pericranial scalp hematoma is seen. No acute cranial vault fracture is seen. No fluid is seen within the visualized paranasal sinuses or mastoid air cells. There is some soft tissue debris within the right external auditory canal. IMPRESSION: No evidence of acute territorial major vessel infarct, mass effect, or hemorrhage. Postoperative changes are noted as discussed above. For further evaluation of parenchymal postoperative changes, consider MRI as clinically appropriate. Electronically signed by: Chris Yancey On 01/08/2019 23:42:30 PM
[2019-01-08 23:48] LABS: WHITE BLOOD COUNT 34.4 10^3/uL (4.0-10.0)
[2019-01-08 23:49] LABS: LYMPHOCYTES 7 % (16-52); METAMYELOCYTES 4 % (0-0); MONOCYTES 4 % (0-8); NEUTROPHILS 78 % (35-75)
[2019-01-08 23:50] LABS: ANISOCYTOSIS 1+; DOHLE BODIES 1+; PLATELET ESTIMATE NORMAL (NORMAL)
[2019-01-08 23:52] LABS: TOXIC VACUOLATION 1+
[2019-01-09 00:14] LABS: ALBUMIN 3.4 GM/DL (3.2-5.2); ALT/SGPT 424 U/L (12-78); BILIRUBIN,DIRECT 0.1 MG/DL (0.0-0.2); BILIRUBIN,TOTAL 0.4 MG/DL (0.2-1.0); BLOOD UREA NITROGEN 23 MG/DL (7-18); CARBON DIOXIDE LEVEL 26 MEQ/L (21-32); CHLORIDE LEVEL 106 MEQ/L (98-107); CK-MB VALUE MASS < 1.0 NG/ML (<3.6); CPK CREATINE PHOSPHOKINASE 24 U/L (39-308); CREATININE FOR GFR 0.77 MG/DL (0.70-1.30); GLOMERULAR FILTRATION RATE > 60.0 (>60); GLUCOSE, FASTING 83 MG/DL (70-100); MB/CK RELATIVE INDEX 4.17 (< OR =4); POTASSIUM SERUM 3.6 MEQ/L (3.5-5.1); SODIUM LEVEL 140 MEQ/L (136-145); TOTAL PROTEIN 6.5 GM/DL (6.4-8.2); TROPONIN I < 0.02 NG/ML (< 0.10)
[2019-01-09] MEDS ORDERED: LevoFLOXacin IV 750 MG in APPROPRIATE DILUENT 1 EA IV ONE (00:30)
[2019-01-09] MEDS ORDERED: MAALOX 30 ML SUSP *UDC PO PRN (01:15)
[2019-01-09] MEDS ORDERED: MOM 30ML SUSPENSION UDC PO PRN (01:15)
[2019-01-09] MEDS ORDERED: ACETAMINOPHEN TAB 650MG DOSE (2X325MG) PO PRN (01:15)
--- NOTE | 2019-01-09 01:31 | REPVR ---
EXAM: CT Chest Without Contrast EXAM DATE/TIME: 01/09/2019 12:59 AM CLINICAL HISTORY: 43 years old, male; Signs and symptoms; Cough TECHNIQUE: Imaging protocol: Axial computed tomography images of the chest without intravenous contrast. Coronal and sagittal reformatted images were created and reviewed. 3D rendering: MIP reconstructed images were created and reviewed. Radiation optimization: All CT scans at this facility use at least one of these dose optimization techniques: automated exposure control; mA and/or kV adjustment per patient size (includes targeted exams where dose is matched to clinical indication); or iterative reconstruction. COMPARISON: CT Chest without contrast 05/18/2017 4:05 PM Study limitations: Evaluation of vasculature, mediastinal and hilar structures, for inflammatory change in mass is suboptimal on noncontrast imaging. Image quality is slightly degraded by extrinsic beam hardening artifacts from positioning of the patient's arms along side the body wall. FINDINGS: HEART AND VASCULATURE: Cardiothoracic ratio is within normal limits. Trace amount of pericardial fluid or thickening. No thoracic aortic aneurysm. The main pulmonary trunk is not dilated. MEDIASTINUM: No mediastinal gas. 18 mm hypodense left thyroid nodule is again noted. Further characterization by non-emergent ultrasound is advised, if not already done. Further management of the ITN after thyroid ultrasound, including fine-needle aspiration, should be based on ultrasound findings. Reference: Valarie Villegas., et al. (2015). Managing Incidental Thyroid Nodules Detected on Imaging: White Paper of the ACR Incidental Thyroid Findings Committee. Journal of the [place] [employer], 12(2), 143-150. No mediastinal hematoma. Small amount of simple appearing fluid noted within the pericardial recesses. Small mediastinal lymph nodes are seen. No lymphadenopathy by size criteria. No periesophageal gas or fluid. LUNGS: The lungs are symmetrically expanded. There is no consolidation, pneumothorax or pleural effusion. Previously seen left upper lobe infiltrate has resolved. Bibasal dependent subpleural groundglass opacities noted, likely due to mild atelectasis. Mild biapical parenchymal scarring. No suspicious pulmonary parenchymal mass. No bronchiectasis or peribronchial thickening. UPPER ABDOMEN: No free air or free fluid within the visualized uppermost abdomen. No hiatal hernia. MSK AND BODY WALL: No axillary lymphadenopathy by size criteria. No acute fracture or suspicious bone lesion. IMPRESSION: No evidence for acute infiltrate. Mild bibasal atelectasis. Indeterminate thyroid nodule, although unchanged. Consider nonemergent further characterization by ultrasound, if not already done. Other incidental findings discussed above. Electronically signed by: Chris Yancey On 01/09/2019 01:31:38 AM
--- NOTE | 2019-01-09 01:32 | HPEPDOC ---
General Date of Admission Chief Complaint The patient is a 43-year-old male admitted with a reason for visit of Alt Mental Status. Source: Patient, Family, Old records History of Present Illness Mr. Babcock is a 43 years old man with hx/o Glioblastoma s/p craniotomy, currently on chemotherapy (Avastin/carboplatin ), last dose on Fri. He is brought to the ER for evaluation of increasing lethargy and confusion of one day duration. History obtained from patient and his . Pt reports mild, dry cough which has not noticed. Denies fever, chills, neck pain, headache, photophobia, rash, dysuria, abdominal pain, diarrhea, chest pain or SOB. Pt usually has poor appetite and slow response; but these symptoms have worsened. In the ER, CXR and Head CT showed no acute findings. WBC 34K (normal 2 days ago); moderately elevated transaminase. Pt received a dose IV Levaquin for suspected pneumonia, and IV fluid in ER. Subsequently CT chest was done; no acute findings. LP was performed; CSF WBC was 1. Home Medications Scheduled Amlodipine Besylate (Amlodipine Besylate) 10 Mg Tab, 10 MG PO DAILY, (Reported) Bevacizumab (Avastin) 100 Mg/4 Ml Inj, 1,000 MG IV ASDIRECTED, (Reported) EVERY 3 WEEKS Levetiracetam (Levetiracetam ER) 500 Mg Tab, 500 MG PO Q12H, (Reported) Scheduled PRN Acetaminophen (Acetaminophen) 500 Mg Tab, 1,000 MG PO for PAIN, (Reported) Allergies Coded Allergies: temozolomide (Verified Allergy, Intermediate, Hives, 12/02/18) Past Medical History Medical History Glioblastoma, s/p craniotomy and surgical resection on 10/2011 and 04/2012, Gamma Knife 08/2018; HTN Family History Significant Family History: No pertinent family hx Social History * Smoker: former Smoker Alcohol: Denies Drugs: denies A-FIB/CHADSVASC A-FIB History Current/History of A-Fib/PAF?: No Review of Systems Constitutional: Reports: Weakness, Fatigue, Lethargy; Denies: Chills, Fever Eyes: Denies: Pain, Conjunctivae inflammation, Redness ENT: Denies: Head Aches, Dysphagia, Sore Throat Skin: Denies: Rash, Lesions Pulmonary: Reports: Cough; Denies: Dyspnea Cardiovascular: Denies: Chest Pain Gastrointestinal: Denies: Nausea, Vomiting, Abdominal Pain, Diarrhea Genitourinary: Denies: Dysuria, Frequency Musculoskeletal: Denies: Neck Pain Neurological: Reports: Weakness Psych: Reports: Mood Normal Physical Examination General Exam: Positive: Alert, Cooperative, Other (Oriented to person and place only) Eye Exam: Positive: PERRLA, Conjunctiva & lids normal, EOMI ENT Exam: Positive: Atraumatic (old craniotomy scar) Neck Exam: Positive: Supple, Other (no neck rigidity) Chest Exam: Positive: Clear to auscultation, Normal air movement Heart Exam: Positive: Rate Normal, Regular Rhythm Abdomen Exam: Positive: Normal bowel sounds, Soft, Tenderness Extremity Exam: Positive: Normal pulses; Negative: Edema Skin Exam: Negative: Rash, Breakdown, Lesion Neuro Exam: Positive: Normal Speech, Strength at 5/5 X4 ext, Other (no facial assymetry) Psych Exam: Positive: Other (lethargic, arousable; able to answer simple questions) Vital Signs Vital Signs Date Time Temp Pulse Resp B/P (MAP) Pulse Ox O2 Delivery O2 Flow Rate FiO2 01/09/19 00:30 66 115/71 (86) 94 Room Air 01/08/19 22:32 17 01/08/19 22:23 98.4 Laboratory Data Labs 24H Laboratory Tests 2 01/08/19 22:59: Bedside Glucose (Misc Panel) 83 01/08/19 23:21: Immature Granulocyte % (Auto) , White Blood Count 34.4*H, Red Blood Count 3.99L, Hemoglobin 12.8L, Hematocrit 38.3L, Mean Corpuscular Volume 96.0, Mean Corpuscular Hemoglobin 32.1, Mean Corpuscular Hemoglobin Concent 33.4, Red Cell Distribution Width 16.5H, Platelet Count 132L, Neutrophils # (Auto) , Monocytes # (Auto) , Nucleated Red Blood Cells % (auto) 0.0, Neutrophils 78H, Band Neutrophils 7, Lymphocytes (Manual) 7L, Monocytes (Manual) 4, Metamyelocytes 4H, Toxic Vacuolation 1+, Dohle Bodies 1+, Platelet Estimate NORMAL, Anisocytosis 1+, Anion Gap 8, Glomerular Filtration Rate > 60.0, Lactic Acid Level 1.0, Calci um Level 8.0L, Aspartate Amino Transf (AST/SGOT) 112H, Alanine Aminotransferase (ALT/SGPT) 424H, Alkaline Phosphatase 124H, Total Bilirubin 0.4, Direct Bilirubin 0.1, Total Creatine Kinase 24L, Creatine Kinase MB < 1.0, Creatine Kinase MB Relative Index 4.17H, Troponin I < 0.02, Total Protein 6.5, Albumin 3.4, Albumin/Globulin Ratio 1.10, Thyroid Stimulating Hormone (TSH) 3.460 01/09/19 00:01: Urine Color YELLOW, Urine Appearance CLEAR, Urine pH 5.0, Urine Specific Bath 1.013, Urine Protein 1+H, Urine Glucose (UA) NEGATIVE, Urine Ketones NEGATIVE, Urine Blood NEGATIVE, Urine Nitrite NEGATIVE, Urine Bilirubin NEGATIVE, Urine Urobilinogen 0.2, Urine Leukocyte Esterase NEGATIVE, Urine WBC (Auto) 2, Urine RBC (Auto) 2, Urine Hyaline Casts (Auto) 1, Urine Bacteria (Auto) NEGATIVE, Urine Squamous Epithelial Cells 0, Urine Sperm (Auto) 01/09/19 01:01: CBC/BMP Laboratory Tests 01/08/19 23:21 Red Blood Count 3.99 L, Mean Corpuscular Volume 96.0, Mean Corpuscular Hemoglobin 32.1, Mean Corpuscular Hemoglobin Concent 33.4, Red Cell Distribution Width 16.5 H, Neutrophils # (Auto) , Monocytes # (Auto) Microbiology Microbiology 01/08/19 Blood Culture, Received Pending 01/08/19 Blood Culture, Received Pending Assessment/Plan 43 years old man with Glioblastoma receiving Avastin/carboplatin presenting with lethargy, confusion and significant leucocytosis. Vitals are normal. Extensive physical exam, CXR, CT chest and CSF study failed to show any signs of infectio n. Altered Mental Status (encephalopathy of unclear Etiology) and Leucocytosis - No clear source of infection. Sending Procalcitonin. Pt has received a dose of IV Levaquin in the ER. Holding further antibiotic for now, until result of Procalcitonin is back. - Other possibilities is cancer and chemotherapy related; dehydration; failure to thrive; Leukemia. - Repeat CBC in the morning. If persistent leucocytosis +/- fever. May consider CT abd/pelv although there are no signs or symptoms indicating abdominal pathology. - Follow blood c/s - Monitor clinically now - IV Fluid Plan / VTE VTE Prophylaxis Ordered?: Yes SAJI PALM MD January 09, 2019:31
[2019-01-09 01:37] LABS: INFLUENZA A AMPLIFICATION NEGATIVE (NEGATIVE); INFLUENZA B AMPLIFICATION NEGATIVE (NEGATIVE)
[2019-01-09 02:51] LABS: INR 0.97
[2019-01-09 02:52] LABS: PARTIAL THROMBOPLASTIN TIME 26.5 SECONDS (25.4-37.6)
[2019-01-09] MEDS: LR 1,000 ML IV SCH ×3 (03:02→21:44)
[2019-01-09] MEDS ORDERED: LIDOCAINE 1% MDV 20ML VIAL As Ordered ONE (03:26)
[2019-01-09] MEDS ORDERED: LIDOCAINE 1% MDV 20ML VIAL SC ONE (03:45)
--- NOTE | 2019-01-09 03:54 | IPNPDOC ---
Text Note Date of Service The patient was seen on 01/09/19. NOTE PROCEDURE NOTE PROCEDURE: Lumbar Puncture INDICATION: r/o meningitis, encephalitis CONSENT: Obtained from pt's ; in the chart Pt was placed on the sitting and forward bending position. LP site was identified following superior iliac crest bilaterally. Area was disinfected with Chlorhexidine. Skin and soft tissue were infiltrated with 1% Lidocaine. Needle was advanced until CSF flow was observed. Clear fluid collected in four tubes. Pt complained of mild headache towards to end of procedure; Pt was placed on flat lying position and instructed to remain flat for two hours. Tylenol 650 mg po one dose. A-FIB/CHADSVASC A-FIB History Current/History of A-Fib/PAF?: No VS,Fishbone, I+O VS, Fishbone, I+O Laboratory Tests 01/08/19 23:21 Red Blood Count 3.99 L, Mean Corpuscular Volume 96.0, Mean Corpuscular Hemoglobin 32.1, Mean Corpuscular Hemoglobin Concent 33.4, Red Cell Distribution Width 16.5 H, Neutrophils # (Auto) , Monocytes # (Auto) Vital Signs Date Time Temp Pulse Resp B/P (MAP) Pulse Ox O2 Delivery O2 Flow Rate FiO2 01/09/19 03:35 86 16 142/87 (105) 97 Room Air 01/09/19 02:15 97.1 I&O- Last 24 Hours up to 6 AM 01/09/19 06:00 Intake Total 1150 ml Output Total 400 ml Balance 750 ml SAJI PALM MD January 09, 2019 03:53
[2019-01-09 04:09] LABS: APPEARANCE, CSF CLEAR (CLEAR); COLOR, CSF COLORLESS (COLORLESS); CSF TUBE# CELL CNT TUBE 4
[2019-01-09 04:10] LABS: APPEARANCE, CSF CLEAR (CLEAR); COLOR, CSF COLORLESS (COLORLESS); CSF TUBE# CELL CNT TUBE 1
[2019-01-09 04:11] LABS: CSF TUBE# GLU TUBE 2; CSF TUBE# TP TUBE 2; GLUCOSE CSF 53 MG/DL (40-75); TOTAL PROTEIN,CSF 45 MG/DL (15-45)
--- NOTE | 2019-01-09 05:53 | REPVR ---
EXAM: CT Abdomen and Pelvis Without Contrast EXAM DATE/TIME: 01/09/2019 5:06 AM CLINICAL HISTORY: 43 years old, male; Signs and symptoms; Other: Leukocytosis; Additional info: AMS, leucocytosis TECHNIQUE: Imaging protocol: Axial computed tomography images of the abdomen and pelvis without contrast. Coronal and sagittal reformatted images were created and reviewed. Radiation optimization: All CT scans at this facility use at least one of these dose optimization techniques: automated exposure control; mA and/or kV adjustment per patient size (includes targeted exams where dose is matched to clinical indication); or iterative reconstruction. COMPARISON: CT ABD/PEL W/IV ORAL CONTRAS 03/18/2018 4:30 PM Study limitations: Evaluation for mass, inflammatory change, including bowel wall/fold thickening, viscera, and vasculature, is suboptimal without contrast. FINDINGS: LUNG BASES: Mild bibasal atelectasis. VASCULAR: No abdominal aortic aneurysm or retroperitoneal hematoma. PERITONEAL : No free air or free fluid. GI: No hiatal hernia. The stomach contains some fluid and gas. The stomach is not sufficiently distended to evaluate wall thickening or exclude fold thickening. No perigastric or periduodenal inflammatory stranding. No asymmetric small bowel dilation to suggest obstruction. There is no focal mesenteric inflammatory stranding. Small nonspecific mesenteric lymph nodes are seen. There is some fluid and fecal material within nondilated portions of the colon. Fluid within the colon may be abnormal and could be correlated with symptoms and causes of diarrhea. No pericolonic inflammatory stranding is seen. No evidence of acute diverticulitis. The appendix does not appear inflamed. HEPATOBILIARY, PANCREAS, SPLEEN: Sagittal hepatic length is 17.5 cm. Hepatic attenuation is slightly heterogeneous, likely with mild fatty infiltration. Correlation with LFTs would be helpful. No calcified gallstones. No pancreatic inflammation. Spleen not enlarged. ADRENALS, KIDNEYS, BLADDER, RETROPERITONEAL: Adrenals within normal limits. No hydronephrosis. No renal calculi. Mild nonspecific perinephric stranding. Any possibility for UTI to be correlated with urinalysis. 7 mm exophytic left lower pole renal lesion difficult to further characterize but similar to the prior exam and likely a cyst. Mildly distended urinary bladder. No perivesical stranding. Mild enlargement of the prostate, slightly impressing upon the base of the bladder. MUSCULOSKELETAL: Tiny non-inflamed fat containing umbilical hernia. Fat containing left inguinal hernia. Portion of the distal cecum extends into the opening of the right inguinal canal. No evidence of inflammation or obstruction secondary to this. No acute fracture or suspicious bone lesion. IMPRESSION: Study limitations discussed above. No free air, free fluid or focal mesenteric inflammation. Nonspecific gastrointestinal findings as discussed above, to be correlated clinically. Nonspecific bilateral perinephric stranding could be correlated for any possibility of urinary tract infection. Other findings discussed above. Electronically signed by: Chris Yancey On 01/09/2019 05:53:37 AM
[2019-01-09 06:00] VITALS: BP 135/74
[2019-01-09 06:25] LABS: HEMATOCRIT 38.4 % (42.0-52.0); HEMOGLOBIN 12.8 g/dl (13.5-17.5); MEAN CORPUSCULAR HEMOGLOBIN 31.8 pg (27.0-33.0); MEAN CORPUSCULAR HGB CONC 33.3 g/dl (32.0-36.5); MEAN CORPUSCULAR VOLUME 95.3 fl (80.0-96.0); PLATELET COUNT, AUTOMATED 133 10^3/uL (150-450); RED BLOOD COUNT 4.03 10^6/uL (4.30-6.10)
[2019-01-09 06:42] LABS: WHITE BLOOD COUNT 35.4 10^3/uL (4.0-10.0)
[2019-01-09 06:45] LABS: ALT/SGPT 351 U/L (12-78); BILIRUBIN,TOTAL 0.4 MG/DL (0.2-1.0); BLOOD UREA NITROGEN 16 MG/DL (7-18); CALCIUM LEVEL 8.1 MG/DL (8.5-10.1); CARBON DIOXIDE LEVEL 27 MEQ/L (21-32); CHLORIDE LEVEL 110 MEQ/L (98-107); CREATININE FOR GFR 0.75 MG/DL (0.70-1.30); GLOMERULAR FILTRATION RATE > 60.0 (>60); GLUCOSE, FASTING 87 MG/DL (70-100); POTASSIUM SERUM 3.6 MEQ/L (3.5-5.1); SODIUM LEVEL 143 MEQ/L (136-145); TOTAL PROTEIN 6.6 GM/DL (6.4-8.2)
[2019-01-09 07:44] LABS: ANISOCYTOSIS 1+; LYMPHOCYTES 3 % (16-52); MONOCYTES 4 % (0-8); MYELOCYTES 1 % (0-0); NEUTROPHILS 86 % (35-75); PLATELET ESTIMATE DECREASED (NORMAL)
[2019-01-09] MEDS ORDERED: HEPARIN SOD (PORCINE) 5000 UNITS/ML VIAL SC SCH (09:00)
[2019-01-09] MEDS ORDERED: PROHANCE 279.3MG/ML 5ML VIAL (A9576) As Ordered ONE (10:04)
[2019-01-09] MEDS ORDERED: PROHANCE 279.3MG/ML 15ML VIAL (A9576) As Ordered ONE (10:04)
[2019-01-09 10:30] VITALS: BP 125/82
[2019-01-09] MEDS: levETIRAcetam **XR** 500 MG TABLET PO SCH ×2 (11:03→21:40)
--- NOTE | 2019-01-09 12:04 | IPNPDOC ---
Date Seen The patient was seen on 01/09/19. Progress Note SUBJECTIVE: Patient was seen and examined this morning. Patient states that last night he had developed some confusion and lethargy. He states that this morning his confusion has resolved although he does feel tired. Patient stated that he did have an increase in his chemotherapy medication on Friday and . He denies any recent sick contacts. He denies any nausea, vomiting, diarrhea. He denies any fevers or chills. Patient states that he feels well with exception to his fatigue. OBJECTIVE PHYSICAL EXAMINATION: VITAL SIGNS: Please see below. GENERAL: Awake, alert, and oriented x 3. He appears in no acute distress. Lying comfortably in bed HEENT: Left craniotomy scar. Eyes are non-icteric. Trachea is midline. Dentition is fair. Mucous membranes are pink and moist CARDIOVASCULAR: Normal S1, S2. Regular rate and rhythm. No clicks rubs or murmurs RESPIRATORY: Clear vesicular breath sounds bilaterally with good respiratory effort. No wheezes, rhonci, or rales ABDOMINAL: Soft, nondistended. Nontender to palpation in all 4 quadrants. No rebound tenderness or guarding. Positive bowel sounds EXTREMITIES: No edema. Full and equal pulses in bilateral upper and lower extremities NEUROLOGICAL: No focal neurological deficits. CN II-XII grossly intact. Muscle strength testing 5/5 in bilateral upper and lower extremities. Slight word finding difficulty and slowed speech. PSYCHOLOGICAL: Mood and affect appear appropriate LABORATORY DATA, IMAGING STUDIES, MICROBIOLOGY: Please see below. DVT prophylaxis ordered?: YES ASSESSMENT AND PLAN: Patient is a 43 year old male with a history of glioblastoma s/p craniotomy on Avastin/carboplatin who presented to the [facility] ER with complaint of increasing lethargy and confusion for one day duration. Patient had reported a dry cough at that time. He had denied fever, chills, neck pain, back pain, photophobia, rash, chest pain, or shortness of breath. PROBLEMS: 1. Altered Mental Status of unknown etiology -Patient presented with altered mental status. He had received a Head CT with no acute findings. -Currently the patient is oriented x3 and does not show signs of altered mental status. He does have some word finding difficulty however he states that this is his baseline. -Patient has a history of glioblastoma and is currently receiving Avastin and carboplatin therapy. His dose was recently increased on Friday. His altered mental status may be attributed to his medication. -Patient had a lumbar puncture in the ER as he had leukosytosis. His lumbar puncture was negative. Other infectious etiologies seem unlikely. Blood cultures are pending. Chest X-ray and CT were negative for any acute process. U/A was negative. The patient did receive Neulasta on January 07 which could explain his leukocytosis. -Will obtain an MRI w/o followed by W contrast -Have spoken with Nurse Practitioner immigration paralegal for Heme/Onc and made aware that patient is currently hospitalized possibly due to medication side effect. We will plan to observe for 24 hours and likely discharge tomorrow. Patient will have to follow up with Dr. Terrazas of Hematology/Oncology 2. Leukocytosis -As discussed above, patient presented with leukocytosis. He is afebrile with no discernible source of infection. He had received Neulasta on January 07 which is the likely cause of his leukocytosis. Clinically, patient appears to be improving. He has no confusion. He admits to some lethargy however, his leukocytosis is likely secondary to his Neulasta -Will continue to trend WBC 3. H/O Glioblastoma -Continue Keppra for seizure prophylaxis 4. DVT prophylaxis -Heparin SQ A-FIB/CHADSVASC A-FIB History Current/History of A-Fib/PAF?: No VS, I&O, 24H, Fishbone Vital Signs/I&O Vital Signs Date Time Temp Pulse Resp B/P (MAP) Pulse Ox O2 Delivery O2 Flow Rate FiO2 01/09/19 10:30 97.9 77 17 125/82 (96) 97 01/09/19 03:35 Room Air I&O- Last 24 Hours up to 6 AM 01/09/19 06:00 Intake Total 1150 ml Output Total 400 ml Balance 750 ml Laboratory Data 24H LABS Laboratory Tests 2 01/08/19 22:59: Bedside Glucose (Misc Panel) 83 01/08/19 23:00: Prothrombin Time 13.0, Prothromb Time International Ratio 0.97, Activated Partial Thromboplast Time 26.5 01/08/19 23:21: Immature Granulocyte % (Auto) , White Blood Count 34.4*H, Red Blood Count 3.99L, Hemoglobin 12.8L, Hematocrit 38.3L, Mean Corpuscular Volume 96.0, Mean Corpuscular Hemoglobin 32.1, Mean Corpuscular Hemoglobin Concent 33.4, Red Cell Distribution Width 16.5H, Platelet Count 132L, Neutrophils # (Auto) , Monocytes # (Auto) , Nucleated Red Blood Cells % (auto) 0.0, Neutrophils 78H, Band Neutrophils 7, Lymphocytes (Manual) 7L, Monocytes (Manual) 4, Metamyelocytes 4H, Toxic Vacuolation 1+, Dohle Bodies 1+, Platelet Estimate NORMAL, Anisocytosis 1+, Anion Gap 8, Glomerular Filtration Rate > 60.0, Lactic Acid Level 1.0, Calcium Level 8.0L, Aspartate Amino Transf (AST/SGOT) 112H, Alanine Aminotransferase (ALT/SGPT) 424H, Alkaline Phosphatase 124H, Total Bilirubin 0.4, Direct Bilirubin 0.1, Total Creatine Kinase 24L, Creatine Kinase MB < 1.0, Creatine Kinase MB Relative Index 4.17H, Troponin I < 0.02, Total Protein 6.5, Albumin 3.4, Albumin/Globulin Ratio 1.10, Thyroid Stimulating Hormone (TSH) 3.460 01/09/19 00:01: Urine Color YELLOW, Urine Appearance CLEAR, Urine pH 5.0, Urine Specific [place] 1.013, Urine Protein 1+H, Urine Glucose (UA) NEGATIVE, Urine Ketones NEGATIVE, Urine Blood NEGATIVE, Urine Nitrite NEGATIVE, Urine Bilirubin NEGATIVE, Urine Urobilinogen 0.2, Urine Leukocyte Esterase NEGATIVE, Urine WBC (Auto) 2, Urine RBC (Auto) 2, Urine Hyaline Casts (Auto) 1, Urine Bacteria (Auto) NEGATIVE, Urine Squamous Epithelial Cells 0, Urine Sperm (Auto) 01/09/19 01:01: Influenza Type A (RT-PCR) NEGATIVE, Influenza Type B (RT-PCR) NEGATIVE 01/09/19 03:42: CSF Appearance CLEAR, CSF Color COLORLESS, CSF WBC (Auto) 1, CSF RBC (Auto) < 2, CSF Cell Count Tube # TUBE 4, CSF Polynuclear WBCs (%) 01/09/19 03:43: CSF Appearance CLEAR, CSF Color COLORLESS, CSF WBC (Auto) 1, CSF RBC (Auto) < 2, CSF Cell Count Tube # TUBE 1, CSF Polynuclear WBCs (%) , CSF Glucose (Tube 1) TUBE 2, CSF Total Protein (Tube 1) TUBE 2, CSF Glucose 53, CSF Total Protein 45 01/09/19 06:03: Immature Granulocyte % (Auto) , White Blood Count 35.4*H, Red Blood Count 4.03L, Hemoglobin 12.8L, Hematocrit 38.4L, Mean Corpuscular Volume 95.3, Mean Corpuscular Hemoglobin 31.8, Mean Corpuscular Hemoglobin Concent 33.3, Red Cell Distribution Width 16.6H, Platelet Count 133L, Neutrophils # (Auto) , Monocytes # (Auto) , Nucleated Red Blood Cells % (auto) 0.0, Neutrophils 86H, Band Neutrophils 6, Lymphocytes (Manual) 3L, Monocytes (Manual) 4, Myelocytes 1H, Platelet Estimate DECREASED, Anisocytosis 1+, Anion Gap 6L, Glomerular Filtration Rate > 60.0, Blood Urea Nitrogen 16, Creatinine 0.75, Sodium Level 143, Potassium Level 3.6, Chloride Level 110H, Carbon Dioxide Level 27, Calcium Level 8.1L, Aspartate Amino Transf (AST/SGOT) 82H, Alanine Aminotransferase (ALT/SGPT) 351H, Alkaline Phosphatase 122H, Total Bilirubin 0.4, Total Protein 6.6, Albumin 3.0L, Albumin/Globulin Ratio 0.83L CBC/BMP Laboratory Tests 01/08/19 23:21 Red Blood Count 3.99 L, Mean Corpuscular Volume 96.0, Mean Corpuscular Hemoglobin 32.1, Mean Corpuscular Hemoglobin Concent 33.4, Red Cell Distribution Width 16.5 H, Neutrophils # (Auto) , Monocytes # (Auto) 01/09/19 06:03 Red Blood Count 4.03 L, Mean Corpuscular Volume 95.3, Mean Corpuscular Hemoglobin 31.8, Mean Corpuscular Hemoglobin Concent 33.3, Red Cell Distribution Width 16.6 H, Neutrophils # (Auto) , Monocytes # (Auto) , Calcium Level 8.1 L, Aspartate Amino Transf (AST/SGOT) 82 H, Alanine Aminotransferase (ALT/SGPT) 351 H, Alkaline Phosphatase 122 H, Total Bilirubin 0.4, Total Protein 6.6, Albumin 3.0 L Microbiology Microbiology 01/08/19 Blood Culture, Received Pending 01/08/19 Blood Culture, Received Pending 01/09/19 Gram Stain - Final, Resulted 01/09/19 CSF Culture, Resulted Pending GME ATTESTATION GME ATTESTATION My faculty preceptor for this patient encounter was physically present during the encounter and was fully available. All aspects of the patient interview, examination, medical decision making process, and medical care plan development were reviewed and approved by the faculty preceptor. The faculty preceptor is aware and concurs with the plan as stated in the body of this note and will attest to such by his/her cosignature. ATTENDING NOTE I saw and evaluated the patient. I agree with the findings and plan of care as documented in the resident's note KRYSTIAN TOBIN DO January 09, 2019 12:04 SHEREEN YEH MD January 10, 2019 16:41
--- NOTE | 2019-01-09 13:14 | REP ---
CHEST, SINGLE VIEW: There is no evidence of acute infiltrate. No pleural effusion is seen. The heart is normal in size. The mediastinal silhouette is unremarkable. The visualized osseous structures are intact. IMPRESSION: No acute pulmonary disease. Electronically Signed by Richard Damon MD 01/09/2019 03:54 P
--- NOTE | 2019-01-09 13:24 | REP ---
ADDENDUM: MRI BRAIN WITH CONTRAST: Mental status change. CONTRAST: ProHance 18 mL. COMPARISON: CT 01/08/2019. The patient is status post left temporoparietal craniotomy and resection of a left temporoparietal lobe tumor. Cystic encephalomalacia is present. Mixed decreased and increased signal intensity on T1 and T2-weighted images are present at the margins of the cystic encephalomalacia. This represents a gliosis and hemosiderin. A small focus of mild homogeneous enhancement is present in the posteromedial left temporal lobe along the inferomedial aspect of the atrium and posterior body of the left lateral this is associated with a small amount of mass effect on the inferomedial atrium of the left lateral . Two punctate areas of mixed decreased and increased signal intensity on T1 and T2-weighted images are present in the left frontal and parietal lobes. This represents a chronic hemorrhage. Diffuse increased signal intensity on T2-weighted images is present in the periventricular and subcortical white matter. This represents chemo or post radiation change. There is no hydrocephalus or extracerebral . The sinuses are clear. IMPRESSION: There are postoperative changes in the left temporal and parietal lobe. A small area of enhancement is present in the inferomedial left temporal lobe along the atrium of the left lateral ventricle. This represents residual or recurrent tumor or possibly postradiation change. MR spectroscopy would be helpful for further evaluation. A repeat examination in several months is recommended for further evaluation. Incomplete
[2019-01-09 14:00] VITALS: BP 136/80
[2019-01-09 18:00] VITALS: BP 139/90
[2019-01-09] MEDS: HEPARIN SOD (PORCINE) 5000 UNITS/ML VIAL SC SCH (21:40)
[2019-01-09 22:00] VITALS: BP 136/86
[2019-01-10] MEDS: LR 1,000 ML IV SCH ×2 (00:52→08:30)
[2019-01-10 02:00] VITALS: BP 109/55
[2019-01-10 06:00] VITALS: BP 136/86
[2019-01-10 08:10] LABS: HEMATOCRIT 39.9 % (42.0-52.0); HEMOGLOBIN 13.3 g/dl (13.5-17.5); MEAN CORPUSCULAR HGB CONC 33.3 g/dl (32.0-36.5); MEAN CORPUSCULAR VOLUME 95.9 fl (80.0-96.0); PLATELET COUNT, AUTOMATED 132 10^3/uL (150-450); RED BLOOD COUNT 4.16 10^6/uL (4.30-6.10)
[2019-01-10 08:13] LABS: WHITE BLOOD COUNT 33.2 10^3/uL (4.0-10.0)
[2019-01-10] MEDS: HEPARIN SOD (PORCINE) 5000 UNITS/ML VIAL SC SCH (08:30)
[2019-01-10] MEDS: levETIRAcetam **XR** 500 MG TABLET PO SCH (08:30)
[2019-01-10 08:38] LABS: BLOOD UREA NITROGEN 11 MG/DL (7-18); CALCIUM LEVEL 8.3 MG/DL (8.5-10.1); CARBON DIOXIDE LEVEL 29 MEQ/L (21-32); CHLORIDE LEVEL 108 MEQ/L (98-107); CREATININE FOR GFR 0.67 MG/DL (0.70-1.30); GLOMERULAR FILTRATION RATE > 60.0 (>60); GLUCOSE, FASTING 83 MG/DL (70-100); SODIUM LEVEL 142 MEQ/L (136-145)
--- NOTE | 2019-01-10 20:55 | ECGEPIP ---
Stationary ECG Study [facility] - ED Test Date: 2019-01-08 Pat Name: GOLDEN APPLE Department: Room: [place] [address] Gender: M Prop Drawer: sangeetha : 1975 Requested By: LLOYD Stauffer Order Number: [id number] Reading MD: Brynn John Measurements Intervals Starr Rate: 78 P: 51 [place]: 128 QRS: 2 QRSD: 110 T: 48 QT: 383 QTc: 439 Interpretive Statements SINUS RHYTHM NONSPECIFIC T-WAVE ABNORMALITY DECREASED RATE 09/13/18 Electronically Signed On 01-10-2019 20:54:57 EDT by Brynn John
--- NOTE | 2019-01-11 09:08 | DSES ---
DATE OF ADMISSION: 01/09/2019 DATE OF DISCHARGE: 01/10/2019 DISCHARGE DIAGNOSIS: Encephalopathy. SECONDARY DIAGNOSES: Glioblastoma multiforme. Chronic dysarthria. Leukocytosis. HOSPITAL COURSE: The patient is a 43-year-old male with glioblastoma multiforme status post craniotomy who is on Avastin and carboplatin. The patient recently received higher doses of this chemotherapy on Friday and . On Friday he began to have some confusion and as such as brought to the emergency room. He was found to have significant leukocytosis and did have a fairly extensive workup completed. He was afebrile and not tachycardic, hemodynamically stable throughout his stay. He did have a CT scan of his head which revealed no evidence of cute [place] major vessel infarct, mass effect or hemorrhage, postoperative changes. He did have an MRI subsequently that revealed postoperative changes in the left temporal and parietal lobe, small area of enhancement is present in the inferomedial left temporal lobe along with the atrium on the left lateral ventricle that represents residual recurrent tumor, or possibly post radiation changes. MR spectroscopy would be helpful for further evaluation. Repeat evaluation in several months is recommended for further evaluation. The patient did have a lumbar puncture which was unrevealing. He had blood cultures which were negative, respiratory PCR panel that was negative. His symptoms did resolve spontaneously. SUBJECTIVE: This morning the patient tells me that he is feeling well. His confusion has completely resolved. He feels completely back to his baseline. OBJECTIVE: VITAL SIGNS: Temperature 97.6, pulse 74, respiratory rate 16, blood pressure 136/86, oxygen saturation 96% on room air. GENERAL: She is a very pleasant middle aged man sitting up in bed. He does not appear to be in any acute distress. HEENT: Chronic surgical scars. Moist mucous membranes. Chronic dysarthria. Tongue is midline. Cranial nerves appear grossly intact. No elevation of central venous pressure (CVP). CARDIOVASCULAR EXAM: S1 and S2 regular. RESPIRATORY EXAM: Clear. ABDOMINAL EXAM: Benign. EXTREMITIES: No clubbing, cyanosis, or edema. He has good strength in all four extremities. LABORATORY STUDIES: WBC 33.2, hemoglobin 13.3, platelet count 132. Chemistry panel - sodium 142, potassium 4.0, chloride 108, bicarb 29, BUN 11, creatinine 0.6. He did have some elevation of his liver function tests with his AST initially at 112 and trending down to 82, 424 down to 351. Procalcitonin was 0.14, not suggestive of infection. IMAGING: As outlined above. ASSESSMENT/PLAN: This is a 43-year-old man with metabolic encephalopathy. PROBLEMS: 1. Metabolic encephalopathy, likely secondary to adverse reaction related to chemotherapy and higher doses that he received on Friday and , eliciting this response on Friday. It was quickly resolved. Encouraged him to follow-up with oncology regarding the above medications if he is not tolerating them moving forward. He does appear to have some elevations of liver function tests which I suspect is secondary to his chemotherapy and once again, he has no significant abdominal symptoms whatsoever. His MRI did not have any impressively acute changes to result in the patient's symptoms, and they did resolve with cessation of the medications on his hospitalization. Oncology was notified about this as well and the patient should have repeat imaging of his brain moving forward. 2. Leukocytosis. There was initially some concern that the patient had an infection causing some metabolic encephalopathy however. His leukocytosis is secondary to recent Neulasta. His cultures were all negative. He has not required any antibiotics. 3. Glioblastoma. He is continued on Keppra for seizure prophylaxis and would benefit from close outpatient follow-up with oncology and neurosurgery. 4. Chronic dysarthria. He is at his functional baseline. DISPOSITION: He is discharged home to the care of his family. He is at his functional baseline. He is to follow-up with his primary care provider in seven days, oncology as scheduled, neurosurgery as scheduled. His activity is as prior to admission. His diet is as prior to admission. He is to call neurosurgery and oncology clinic if his symptoms worsen. MEDICATIONS AT TIME OF DISCHARGE: - acetaminophen 1 gram as needed for pain. I advised him I have not to currently use of this regarding his elevated liver function tests in the near future until he has more follow-up Avastin 1 gram intravenously ever three weeks as per oncology. - Keppra extended release 500 mg every 12 hours. Suggested he stop taking his amlodipine as he was not hypertensive whatsoever during his stay. 45 minutes spent organizing any disposition. MTDD
[2019-01-12] MEDS ORDERED: AMLO10TA5 (11:34)
== END 2019-01-10 10:02 | disposition home or self-care (01) | DRG 71 ==
LOC: M ED 22:23 → M ED INP 01-09 01:07 → M MSPAV 01-09 05:35
PROVIDERS: ADMIT Internal Medicine; ATTEND Internal Medicine
PROC: 009U3ZX Drainage of Spinal Canal, Percutaneous Approach, Diagnostic (ICD-10-PCS; principal; 2019-01-09)
DX: G93.41 Metabolic encephalopathy (principal); C71.9 Malignant neoplasm of brain, unspecified; I10 Essential (primary) hypertension; R47.1 Dysarthria and anarthria; Z79.899 Other long term (current) drug therapy; Z88.8 Allergy status to other drugs, medicaments and biological substances; Z87.891 Personal history of nicotine dependence; T45.1X5A Adverse effect of antineoplastic and immunosuppressive drugs, initial encounter

== ENCOUNTER 2019-01-12 11:24 | Emergency (ER) | payer MEDICARE ==
[~2019-01-12] VITALS: Ht 188 cm; Wt 90.9 kg
[2019-01-12] MEDS ORDERED: AMLO10TA5 PO (11:34)
[2019-01-12] MEDS ORDERED: NS 1,000 ML IV ONE (11:45)
[2019-01-12 14:45] VITALS: BP 153/91
[2019-02-10] MEDS ORDERED: NON-325T5 PO (13:41)
[2019-02-18] MEDS ORDERED: KEPP250T5 PO (10:43)
== END 2019-01-12 14:50 | disposition home or self-care (01) ==
LOC: M ED 11:24
DX: G97.1 Other reaction to spinal and lumbar puncture (principal); Z79.899 Other long term (current) drug therapy; Z88.8 Allergy status to other drugs, medicaments and biological substances

== ENCOUNTER 2019-01-12 14:33 | Outpatient (CLI) | payer MEDICARE ==
[2019-01-12] MEDS ORDERED: BUPIVACAINE HCL 0.25% 30 ML VIAL As Ordered ONE (15:07)
[2019-01-12 15:40] VITALS: BP 133/96
[2019-02-10] MEDS ORDERED: NON-325T5 PO (13:41)
[2019-02-18] MEDS ORDERED: KEPP250T5 PO (10:43)
== END 2019-01-12 16:20 | disposition home or self-care (01) ==
LOC: M RROUT 14:33
PROVIDERS: ATTEND Anesthesiology
DX: R51 Headache (principal)

== ENCOUNTER 2019-01-13 09:33 | Emergency (ER) | payer MEDICARE ==
[~2019-01-13] VITALS: Ht 188 cm; Wt 89.1 kg
[2019-01-13] MEDS ORDERED: ROPIvacaine 0.5% 30 ML INJECTION (J2795 PER 1MG) ONE (09:34)
[2019-01-13] MEDS ORDERED: dexameTHASONE 10 MG/1 ML VIAL PRES.FREE (J1100) ONE (09:34)
[2019-01-13] MEDS ORDERED: EPINEPHrine INJ 1 MG/ML 1ML AMP ONE (09:34)
[2019-01-13] MEDS ORDERED: LIDOCAINE 1% MDV 20ML VIAL ONE (09:34)
[2019-01-13] MEDS ORDERED: KETOROLAC 30 MG/ML VIAL (J1885) IV ONE (10:45)
[2019-01-13] MEDS ORDERED: METOCLOPRAMIDE INJ 10MG/2ML VIAL (J2765) IV ONE (10:45)
[2019-01-13] MEDS ORDERED: NS 1,000 ML IV ONE (10:45)
[2019-01-13] MEDS ORDERED: diphenhydrAMINE INJ 50MG/ML VIAL (J1200) IV ONE (10:45)
[2019-01-13] MEDS ORDERED: MORPHINE 4 MG/ML 1ML VIAL/SYRINGE (J2270) IV ONE (11:00)
[2019-01-13 11:18] LABS: HEMATOCRIT 43.8 % (42.0-52.0); HEMOGLOBIN 14.6 g/dl (13.5-17.5); MEAN CORPUSCULAR HEMOGLOBIN 31.3 pg (27.0-33.0); MEAN CORPUSCULAR HGB CONC 33.3 g/dl (32.0-36.5); PLATELET COUNT, AUTOMATED 143 10^3/uL (150-450); RED BLOOD COUNT 4.66 10^6/uL (4.30-6.10); WHITE BLOOD COUNT 20.9 10^3/uL (4.0-10.0)
[2019-01-13] MEDS ORDERED: BUPIVACAINE HCL 0.25% 10 ML VIAL SC ONE (13:00)
[2019-01-13 13:35] VITALS: BP 143/86
[2019-01-14] MEDS ORDERED: METH5TAB76 PO (19:18)
== END 2019-01-13 13:58 | disposition home or self-care (01) ==
LOC: M ED 09:33
DX: G97.1 Other reaction to spinal and lumbar puncture (principal); C71.9 Malignant neoplasm of brain, unspecified; Z92.21 Personal history of antineoplastic chemotherapy; Z79.899 Other long term (current) drug therapy; Z88.8 Allergy status to other drugs, medicaments and biological substances; Z87.891 Personal history of nicotine dependence

== ENCOUNTER 2019-01-14 15:41 | Inpatient (IN) | payer MEDICARE ==
[~2019-01-14] VITALS: Ht 188 cm; Wt 90.6 kg
[2019-01-14 18:24] VITALS: BP 134/87
[2019-01-14] MEDS ORDERED: METH5TAB76 PO (19:18)
[2019-01-14] MEDS ORDERED: MAALOX 30 ML SUSP *UDC PO PRN (20:45)
[2019-01-14] MEDS ORDERED: MOM 30ML SUSPENSION UDC PO PRN (20:45)
[2019-01-14] MEDS ORDERED: levETIRAcetam 250MG TABLET (KEPPRA) PO SCH (21:00)
[2019-01-14] MEDS: ACETAMINOPHEN TAB 650MG DOSE (2X325MG) PO PRN (21:02)
[2019-01-14] MEDS ORDERED: LORazepam 2 MG/ML VIAL (J2060) IV PRN (21:15)
[2019-01-14 21:55] LABS: INR 0.97
--- NOTE | 2019-01-14 21:55 | HPEPDOC ---
General Date of Admission January 14, 2019 at 15:41 Chief Complaint The patient is a 43-year-old male admitted with a reason for visit of Seizure Disorder. Source: Patient, Family, Old records History of Present Illness Mr. Babcock is a 43 years old man with glioblastoma and seizure d/o. He was brought to [facility] ER for evaluation of seizure. Seizure was witnessed by family at hoe; tonic-clonic, with postictal state. In the ER pt had another episode of seizure; treated with IV Dilantin and Ativan. Pt directly admitted here. On arrival, pt is slowly coming out of post-ictal state, and somewhat somnolent due to Ativan use; but arousable, answering questions and following all commands. Head CT in the ER showed no acute changes. Labs were unremarkable except for minor abnormality: WBC 17.4K, K 3.4, AST 67, ALT 203. Pt and family deny fever, chills, chest pain, abdominal pain, dysuria or any other change in usual state of health. He was actually doing well at home after recent admission. Last seizure was in Sep. Pt takes 1000mg of Keppra at bedtime everyday. Home Medications Scheduled Amlodipine Besylate (Amlodipine Besylate) 10 Mg Tablet, 10 MG PO DAILY, (Reported) Levetiracetam (Levetiracetam ER) 500 Mg Tab, 1,000 MG PO QHS, (Reported) Methylphenidate HCl (Methylphenidate HCl) 5 Mg Tablet, 5 MG PO BID, (Reported) Allergies Coded Allergies: temozolomide (Verified Allergy, Intermediate, Hives, 12/02/18) Past Medical History Medical History Glioblastoma, s/p craniotomy and surgical resection on 10/2011 and 04/2012, Gamma Knife 08/2018; HTN Family History Significant Family History: No pertinent family hx Social History * Smoker: former Smoker Alcohol: Denies Drugs: denies A-FIB/CHADSVASC A-FIB History Current/History of A-Fib/PAF?: No Review of Systems Constitutional: Denies: Chills, Fever, Malaise Eyes: Denies: Pain ENT: Denies: Head Aches Skin: Denies: Rash Pulmonary: Denies: Dyspnea, Cough Cardiovascular: Denies: Chest Pain, Palpitations Gastrointestinal: Denies: Nausea, Vomiting, Abdominal Pain, Diarrhea Genitourinary: Denies: Dysuria Musculoskeletal: Denies: Neck Pain, Back Pain Neurological: Denies: Weakness Psych: Reports: Mood Normal Physical Examination General Exam: Positive: Alert, Cooperative, No Acute Distress Eye Exam: Positive: PERRLA ENT Exam: Positive: Atraumatic Neck Exam: Positive: Supple; Negative: JVD Chest Exam: Positive: Clear to auscultation, Normal air movement Heart Exam: Positive: Rate Normal, Regular Rhythm Abdomen Exam: Positive: Normal bowel sounds, Soft Extremity Exam: Negative: Edema Skin Exam: Negative: Rash, Breakdown Psych Exam: Positive: Mental status NL (mild lethargy) Vital Signs Vital Signs Date Time Temp Pulse Resp B/P (MAP) Pulse Ox O2 Delivery O2 Flow Rate FiO2 01/14/19 18:24 97.1 89 19 134/87 (103) 95 Laboratory Data Labs 24H Laboratory Tests 2 01/14/19 21:34: CBC/BMP Assessment/Plan Breakthrough Seizure, h/x of Brain Glioblastoma - Spoke with Dr. Estrella, recommended increasing Keppra dose to 1000mg po bid. Consult is placed. - Close observation with seizure precaution; Atvian prn for seizure. - Mild abnormal LFTs are chronic and due to chemo. - Leucocytosis due to Neulasta use on 01/07 after chemo. It's trending down from 33K a few days ago. No other indication of infection. Plan / VTE VTE Prophylaxis Ordered?: No VTE Exclusion Mechanical Proph: Low Risk for VTE VTE Exclusion Pharmacological: Absent Response to Tx Plan Anticipated Discharge: Home SAJI PALM MD January 14, 2019 21:55
[2019-01-14 22:00] VITALS: BP 137/93
[2019-01-14 22:09] LABS: ALBUMIN 3.4 GM/DL (3.2-5.2); ALT/SGPT 174 U/L (12-78); BILIRUBIN,TOTAL 0.3 MG/DL (0.2-1.0); BLOOD UREA NITROGEN 16 MG/DL (7-18); CARBON DIOXIDE LEVEL 27 MEQ/L (21-32); CHLORIDE LEVEL 108 MEQ/L (98-107); CREATININE FOR GFR 0.61 MG/DL (0.70-1.30); GLOMERULAR FILTRATION RATE > 60.0 (>60); GLUCOSE, FASTING 99 MG/DL (70-100); POTASSIUM SERUM 4.1 MEQ/L (3.5-5.1); SODIUM LEVEL 142 MEQ/L (136-145); TOTAL PROTEIN 6.6 GM/DL (6.4-8.2)
[2019-01-14] MEDS: METHYLPHENIDATE 5 MG TAB PO SCH (23:01)
[2019-01-15] MEDS: ACETAMINOPHEN TAB 650MG DOSE (2X325MG) PO PRN (05:05)
[2019-01-15 06:00] VITALS: BP 117/72
[2019-01-15 08:04] LABS: HEMATOCRIT 38.5 % (42.0-52.0); MEAN CORPUSCULAR HEMOGLOBIN 32.6 pg (27.0-33.0); MEAN CORPUSCULAR HGB CONC 33.8 g/dl (32.0-36.5); MEAN CORPUSCULAR VOLUME 96.5 fl (80.0-96.0); PLATELET COUNT, AUTOMATED 115 10^3/uL (150-450); RED BLOOD COUNT 3.99 10^6/uL (4.30-6.10)
[2019-01-15 08:28] LABS: ALBUMIN 3.2 GM/DL (3.2-5.2); ALT/SGPT 144 U/L (12-78); BILIRUBIN,DIRECT 0.1 MG/DL (0.0-0.2); BILIRUBIN,TOTAL 0.5 MG/DL (0.2-1.0); BLOOD UREA NITROGEN 15 MG/DL (7-18); CALCIUM LEVEL 8.1 MG/DL (8.5-10.1); CARBON DIOXIDE LEVEL 26 MEQ/L (21-32); CHLORIDE LEVEL 108 MEQ/L (98-107); CREATININE FOR GFR 0.69 MG/DL (0.70-1.30); GLOMERULAR FILTRATION RATE > 60.0 (>60); GLUCOSE, FASTING 87 MG/DL (70-100); MAGNESIUM LEVEL 1.8 MG/DL (1.8-2.4); SODIUM LEVEL 140 MEQ/L (136-145); TOTAL PROTEIN 6.6 GM/DL (6.4-8.2)
[2019-01-15] MEDS: levETIRAcetam 250MG TABLET (KEPPRA) PO SCH ×2 (08:47→21:58)
[2019-01-15] MEDS: METHYLPHENIDATE 5 MG TAB PO SCH ×2 (08:47→21:59)
[2019-01-15] MEDS: amLODIPine 10 MG TAB PO SCH (08:49)
[2019-01-15] MEDS: PERCOCET 5MG/325MG TAB PO PRN ×3 (09:53→22:03)
[2019-01-15 14:00] VITALS: BP 130/81
--- NOTE | 2019-01-15 17:04 | IPN ---
DATE: 01/15/2019 SUBJECTIVE: The patient is seen and examined in the room today. The patient had a recurrence of seizure while the patient was in the emergency room. Since then, the patient has had no seizure events. During the encounter, the patient is complaining about right upper neck pain. Denied any other acute complaints. According to the and the patient, the patient has had many minor seizures in the past, but this time the two seizures were more severe. One occurred at home that lasted approximately 5 minutes. No loss of bowel or bladder control at this time. No tongue biting. OBJECTIVE: VITAL SIGNS: Temperature is 96.8, pulse 79, respirations 17, blood pressure 117/72, pulse oximetry is 97% on room air. GENERAL: The patient is alert, awake, comfortable. HEENT: There is some tenderness to palpation on the right upper neck. There is a post surgical scar at the left skull area. CARDIOVASCULAR: Positive S1, S2. Regular rate. LUNGS: Clear to auscultation bilaterally. ABDOMEN: Soft, nontender. Bowel sounds present. EXTREMITIES: No edema. LABORATORY DATA: WBC is 20, hemoglobin 13, hematocrit 38.5, platelet count is 115. Sodium is 140, potassium 4, chloride 108, carbon dioxide 26, BUN 15, creatinine 0.69, GFR greater than 60, fasting glucose 87, calcium 8.1, magnesium 1.8, total bilirubin 0.5, direct bilirubin 0.1, AST 41, ALT is 144, alkaline phosphatase 164, total protein 6.6, albumin 3.2. ASSESSMENT AND PLAN: 1. Recurrent seizures. The patient has a history of glioblastoma, status post craniotomy and surgical resection in October 2011 and April 2012. Gamma knife in August 2018. Since the surgery, the patient has had intermittent mild seizures. The patient was on Keppra 1000 mg by mouth daily; however, the patient had the most severe seizure in his life yesterday. It recurred when the patient was in the emergency room. Neurology was consulted. Keppra is increased to 1000 mg by mouth twice a day and neurology was consulted. Seizure precautions. Ativan as needed for seizures. 2. Glioblastoma, status post craniotomy and surgical resection in October 2011 and April 2012. Gamma knife in August 2018. On chemotherapy treatments. The patient is followed by Dr. Terrazas in the outpatient setting. The patient had Neulasta injection approximately 1 week ago. 3. Leukocytosis, secondary to stress induced. The patient also had Neulasta injection approximately 1 week ago. After the Neulasta, the patient had a significant WBC. Leukocytosis has been improving. Continue to observe. MTDD
[2019-01-15 22:00] VITALS: BP 129/60
[2019-01-16 06:00] VITALS: BP 128/71
[2019-01-16 07:41] LABS: HEMATOCRIT 44.1 % (42.0-52.0); HEMOGLOBIN 14.5 g/dl (13.5-17.5); MEAN CORPUSCULAR HGB CONC 32.9 g/dl (32.0-36.5); MEAN CORPUSCULAR VOLUME 97.4 fl (80.0-96.0); PLATELET COUNT, AUTOMATED 121 10^3/uL (150-450); RED BLOOD COUNT 4.53 10^6/uL (4.30-6.10); WHITE BLOOD COUNT 11.1 10^3/uL (4.0-10.0)
[2019-01-16 07:58] LABS: BLOOD UREA NITROGEN 14 MG/DL (7-18); CALCIUM LEVEL 8.6 MG/DL (8.5-10.1); CARBON DIOXIDE LEVEL 29 MEQ/L (21-32); CHLORIDE LEVEL 106 MEQ/L (98-107); CREATININE FOR GFR 0.87 MG/DL (0.70-1.30); GLOMERULAR FILTRATION RATE > 60.0 (>60); GLUCOSE, FASTING 117 MG/DL (70-100); MAGNESIUM LEVEL 1.8 MG/DL (1.8-2.4); POTASSIUM SERUM 3.8 MEQ/L (3.5-5.1); SODIUM LEVEL 141 MEQ/L (136-145)
[2019-01-16] MEDS: PANTOPRAZOLE 40MG INJ (PROTONIX) (C9113) IV SCH (07:59)
[2019-01-16] MEDS: METHYLPHENIDATE 5 MG TAB PO SCH ×2 (08:00→20:00)
[2019-01-16] MEDS: amLODIPine 10 MG TAB PO SCH (08:00)
[2019-01-16] MEDS: levETIRAcetam 250MG TABLET (KEPPRA) PO SCH ×2 (08:00→20:00)
[2019-01-16] MEDS: ACETAMINOPHEN TAB 650MG DOSE (2X325MG) PO PRN (08:01)
[2019-01-16] MEDS: PERCOCET 5MG/325MG TAB PO PRN (09:43)
--- NOTE | 2019-01-16 13:07 | CR ---
DATE OF CONSULTATION: 01/15/2019 REFERRING PHYSICIAN: Kash Montgomery MD REASON FOR CONSULTATION: Seizures. 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 in [place], [place]. He follows with neurosurgeon in [place]. He last saw them a week ago. He had MRI scan of brain performed on January 09, 2019 which showed stable postsurgical changes in the left temporal and parietal lobe with a small area in the inferomedial temporal lobe where enhancement was seen, concerning for either recurrent, residual tumor or radiation necrosis. The patient also had radiation therapy and chemotherapy for his glioblastoma. The patient has a history of seizures since 2013. He apparently had two grand mal seizures. One happened at home lasting for 2-3 minutes and his whole body was shaking. He has a second seizure in the emergency department and he was given intravenous Dilantin and Ativan. Apparently at home patient was taking Keppra 1000 mg only at night. The patient feels better now. The family has concern that he is still slightly confused and not completely back to his normal self. The patient denies any headaches, neck or back pain. He denies any falls or loss of consciousness. He appears to have deficits in his receptive and expressive speech. I do not know his baseline. 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 He denies any fevers, chills, chest pain, abdominal pain, falls, loss of consciousness other than his seizures. PAST MEDICAL HISTORY: Glioblastoma multiforme status post surgical resection twice, radiation and chemotherapy. Seizures. Hypertension. Apathy. CURRENT MEDICATIONS: - amlodipine 10 mg by mouth daily - Keppra 1000 mg by mouth at bedtime which has been increased to 1000 mg by mouth twice a day since his admission - Ritalin 5 mg by mouth twice a day ALLERGIES: 1. TAMADOR. FAMILY HISTORY: Noncontributory. SOCIAL HISTORY: He is a former smoker. He denies alcohol or illicit drugs. REVIEW OF SYSTEMS: All systems were reviewed with the patient and his mother who was present during this visit and had seen the seizure. Review of systems was unremarkable except as mentioned in history present illness. PHYSICAL EXAMINATION: Temperature 97.2, pulse 69, respiratory rate 18, blood pressure 130/81, 96% saturation on room air. Heart: Regular rate and rhythm. Lungs: Clear to auscultation. Abdomen: Soft, nontender, nondistended. No pedal edema. No musculoskeletal abnormalities. No rash. No signs of meningeal irritation. The patient is awake, alert, oriented to time, place and person. He has receptive and expressive speech difficulty. I do not know his baseline. This can be postictal Abiel's paralysis of his two grand mal seizures. The seizures were likely focal onset due to his history of tumor resection and residual changes. 5/5 strength in all four extremities. He appears to have slight neglect on the right side. Normal sensation throughout. Gait was not tested. His right plantar is upgoing. Left plantar is downgoing. No dysmetria. ASSESSMENT: 1. Focal onset, secondary generalized tonic-clonic seizures. 2. History of glioblastoma status post surgical resection and radiation therapy. 3. 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 PLAN: 1. Keppra 1000 mg by mouth twice a day. 2. Physical and occupational therapy. 3. Close followup with neurosurgery in [place]. 4. Follow with our office 2-3 weeks after hospital discharge.
[2019-01-16 14:00] VITALS: BP 110/68
[2019-01-16] MEDS ORDERED: PROHANCE 279.3MG/ML 5ML VIAL (A9576) As Ordered ONE (16:06)
[2019-01-16] MEDS ORDERED: PROHANCE 279.3MG/ML 15ML VIAL (A9576) As Ordered ONE (16:07)
--- NOTE | 2019-01-16 17:18 | REP ---
MRI brain without and with IV gadolinium: History: History of epilepsy status post two prior craniotomies. Headache with recurrent seizures. History of glioblastoma multiforme on chemotherapy. The most recent comparison MRI study is from January 09, 2019. Comparison head CT January 08, 2019. Technique: Axial and sagittal imaging planes are utilized for T1 and T2-weighted scans. Sequences include spin-echo, fast spin echo, FLAIR, and diffusion weighted sequences. Gadolinium enhancement dose is 18 ml of intravenous ProHance. MRI findings: A left temporal parietal craniotomy is again seen. There is an area of old encephalomalacia underlying this as before. There is an area of persistent enhancement and thickening in the posteromedial temporal lobe adjacent to the atrium of the lateral ventricle. There is some restricted diffusion in this location as well. Hemosiderin staining is seen in this location bilaterally. Sagittal T1-weighted scans demonstrate low T1 signal intensity material along the inferior margin the genu of the corpus callosum extending across the midline. This appears more prominent than it did on January 09, 2019. This may imply petechial hemorrhage across the midline in the inferior aspect of the corpus callosum. Repeat CT study may be helpful for further evaluation. No other significant gadolinium enhancement is seen. No other new lesion is appreciated. impression: Area of fullness and low T1, heterogeneous T2 signal intensity across the splenium of the corpus callosum bilaterally associated with an area of contrast enhancement and restricted diffusion adjacent to the atrium of the left lateral ventricle in the left temporal lobe. This area appears more prominent today. Petechial hemorrhage versus progression. Consider repeat CT study without contrast. Electronically Signed by Amor Velazquez MD 01/16/2019 05:10 P
--- NOTE | 2019-01-16 20:20 | IPN ---
DATE: 01/16/2019 SUBJECTIVE: Patient is seen and examined in the room multiple times with his family members. Patient does not have any recurrence of seizures. Patient has become more awake and alert; however, patient continues to demonstrate some confusion. Patient complained about intermittent headaches. OBJECTIVE: VITAL SIGNS: Temperature 97.4, pulse is 55, respirations 18, blood pressure 128/71, pulse oximetry 96% in room air. GENERAL: Patient is alert and awake, not fully oriented. HEENT: Postsurgical scar noted on the left skull area. During the morning encounter, patient had some tenderness of the left mid upper cervical region. CARDIOVASCULAR: Positive S1, S2, regular rate. LUNGS: Clear to auscultation bilaterally. ABDOMEN: Soft, nontender. Bowel sounds present. EXTREMITIES: No edema. LABORATORY DATA: WBC is 11.1, hemoglobin is 14.5, hematocrit 44.1, platelet count is 121. Sodium is 141, potassium 3.8, chloride 106, carbon dioxide 29, BUN 14, creatinine 0.87, GFR greater than 60, fasting glucose 117, calcium 8.6, magnesium 1.8. ASSESSMENT AND PLAN: 1. Recurrent seizures. Patient has a history of glioblastoma status post craniotomy and surgical resection in October 2011 and April 2012. Gamma knife in August 2018. According to the family member, patient was determined to have recurrence of the tumor approximately August 2018. No further surgical intervention was performed at that time. Patient started on Keppra 1000 mg by mouth daily. Patient's Keppra dose increased to 1000 mg by mouth twice a day. Nephrology consulted. Placed on seizures precautions and continued physical therapy. 2. Glioblastoma status post craniotomy and surgical resection. Patient complained about intermittent headache. Repeated MRI demonstrated there was some abnormal changes compared to the last MRI. Discussed the case with neurology and radiology. Will obtain a followup CT scan tomorrow. Locally patient follows with Dr. Terrazas. 3. Leukocytosis, suspect secondary to stress induced and previous Lunesta injection. Leukocytosis continues to improve. 4. Deep vein thrombosis (DVT) prophylaxis. Patient is on thromboembolic deterrent stockings (TEDS) and compression. [facility]
[2019-01-16 22:00] VITALS: BP 132/80
[2019-01-17 06:00] VITALS: BP 109/64
[2019-01-17] MEDS: PERCOCET 5MG/325MG TAB PO PRN ×2 (06:49→14:24)
[2019-01-17] MEDS: METHYLPHENIDATE 5 MG TAB PO SCH ×2 (08:01→20:14)
[2019-01-17] MEDS: levETIRAcetam 250MG TABLET (KEPPRA) PO SCH ×2 (08:01→20:14)
[2019-01-17] MEDS: PANTOPRAZOLE 40MG INJ (PROTONIX) (C9113) IV SCH (08:01)
[2019-01-17] MEDS: amLODIPine 10 MG TAB PO SCH (08:02)
[2019-01-17 08:17] LABS: HEMATOCRIT 41.7 % (42.0-52.0); HEMOGLOBIN 14.1 g/dl (13.5-17.5); MEAN CORPUSCULAR HEMOGLOBIN 31.7 pg (27.0-33.0); MEAN CORPUSCULAR HGB CONC 33.8 g/dl (32.0-36.5); MEAN CORPUSCULAR VOLUME 93.7 fl (80.0-96.0); PLATELET COUNT, AUTOMATED 125 10^3/uL (150-450); RED BLOOD COUNT 4.45 10^6/uL (4.30-6.10)
[2019-01-17 08:31] LABS: BLOOD UREA NITROGEN 19 MG/DL (7-18); CALCIUM LEVEL 8.6 MG/DL (8.5-10.1); CARBON DIOXIDE LEVEL 25 MEQ/L (21-32); CHLORIDE LEVEL 106 MEQ/L (98-107); CREATININE FOR GFR 0.73 MG/DL (0.70-1.30); GLOMERULAR FILTRATION RATE > 60.0 (>60); GLUCOSE, FASTING 95 MG/DL (70-100); MAGNESIUM LEVEL 1.8 MG/DL (1.8-2.4); POTASSIUM SERUM 4.1 MEQ/L (3.5-5.1); SODIUM LEVEL 139 MEQ/L (136-145)
--- NOTE | 2019-01-17 11:12 | REP ---
CT BRAIN WITHOUT CONTRAST: HISTORY: History brain cancer. Follow-up from previous evenings MRI study of the brain which showed evidence of heterogeneous thickening of the inferior aspect of the splenium of the corpus callosum crossing the midline associated with previously noted area of enhancement and restricted diffusion in the temporal lobe adjacent to the atrium of the left lateral ventricle. Petechial hemorrhage versus tumor progression. Comparison is made with CT study from January 08, 2019, brain MRI study from January 16, 2019 and January 09, 2019. CT FINDINGS: The left temporoparietal craniotomy is again seen. No new bony calvarial abnormality. An area of encephalomalacia is again noted in the left temporal lobe underlying the craniotomy. On today's CT images, there is a triangular area of increased density 1.4 cm in greatest diameter, in the left posteromedial temporal lobe adjacent to the atrium of the lateral ventricle. This is where contrast enhancement is seen on MRI. It appears more prominent than on the CT study from January 08, 2019 and suggests some component of petechial hemorrhage here. In addition, in the midline there is nodular thickening of the inferior margin of the splenium of the corpus callosum. Some low density is seen to the left and right of this in the splenium of the corpus callosum along with some thickening. This nodular and subtle increased density is a change from the recent CT study January 08, 2019. This is again consistent with petechial hemorrhage and/or neoplastic disease progression across the corpus callosum. No sherri hematoma is seen. No change overall in ventricular size. No midline shift or new fluid collection. CT study is otherwise unchanged. IMPRESSION: Today's CT study also shows thickening and heterogeneous increased density in the midline and across to the right side of the splenium of the corpus callosum. There is new increased density in the left posteromedial temporal lobe adjacent to the trigone of the lateral ventricle. These changes may reflect petechial hemorrhage and/or disease progression. Electronically Signed by Amor Velazquez MD 01/17/2019 11:34 A
[2019-01-17 14:00] VITALS: BP 132/88
--- NOTE | 2019-01-17 17:22 | IPNPDOC ---
Text Note Date of Service The patient was seen on 01/17/19. NOTE SUBJECTIVE: Patient is seen and examined in the room multiple times with his family members. No recurrence is seizure. Patient still has difficulty with memory recalls. Patient complains about subjective weakness of right upper and lower extremity. Patient states his right upper and lower extremity sensations are less than left upper and lower extremity sensations. He could not recall exactly when he started having these changes. He felt symptoms have persistent for few weeks but he is really not sure. He also complains about intermittent headaches. OBJECTIVE: VITAL SIGNS: Listed below. GENERAL: Patient is alert and awake, not fully oriented. HEENT: Postsurgical scar noted on the left skull area. During the morning encounter, patient had some tenderness of the left mid upper cervical region. CARDIOVASCULAR: Positive S1, S2, regular rate. LUNGS: Clear to auscultation bilaterally. ABDOMEN: Soft, nontender. Bowel sounds present. EXTREMITIES: No edema. LABORATORY DATA: Listed below. MRI of brain without follow with contrast on 01/16/19: Area of fullness and low T1, heterogeneous T2 signal intensity across the splenium of the corpus callosum bilaterally associated with an area of contrast enhancement and restricted diffusion adjacent to the atrium of the left lateral ventricle in the left temporal lobe. This area appears more prominent today. Petechial hemorrhage versus progression. Consider repeat CT study without contrast. CT head without contrast on 01/17/19: Today's CT study also shows thickening and heterogeneous increased density in the midline and across to the right side of the splenium of the corpus callosum. There is new increased density in the left posteromedial temporal lobe adjacent to the trigone of the lateral ventricle. These changes may reflect petechial hemorrhage and/or disease progression. ASSESSMENT AND PLAN: #. Recurrent seizures. - Patient has a history of glioblastoma status post craniotomy and surgical resection in October 2011 and April 2012. Gamma knife in August 2018. According to the family member, patient was determined to have recurrence of the tumor approximately August 2018. No further surgical intervention was performed at that time. - Patient started on Keppra 1000 mg by mouth daily. Patient's Keppra dose increased to 1000 mg by mouth twice a day since admission. No recurrence of seizure is noted. On seizure precaution. - Nephrology consulted. - Continued physical therapy. #. Glioblastoma status post craniotomy and surgical resection. - MRI of brain performed on 01/16/19. CT of brain performed on 01/17/19. Both brain scans demonstrate findings suggestive of petechial hemorrhage and/or disease progression. call or contact centre team leader Neurosurgery from [facility] contacted. Recommend observation. Contact neurosurgery again if patient has acute change of his status. - Patient follows Dr. Terrazas locally in the outpatient setting #. Leukocytosis - suspect secondary to stress induced and previous Lunesta injection. Leukocytosis continues to improve. #. Deep vein thrombosis (DVT) prophylaxis. - On thromboembolic deterrent stockings (TEDS) and compression. A-FIB/CHADSVASC A-FIB History Current/History of A-Fib/PAF?: No VS,Fishbone, I+O VS, Fishbone, I+O Laboratory Tests 01/17/19 07:56 Red Blood Count 4.45, Mean Corpuscular Volume 93.7, Mean Corpuscular Hemoglobin 31.7, Mean Corpuscular Hemoglobin Concent 33.8, Red Cell Distribution Width 15.4 H, Calcium Level 8.6 Vital Signs Date Time Temp Pulse Resp B/P (MAP) Pulse Ox O2 Delivery O2 Flow Rate FiO2 01/17/19 14:54 18 01/17/19 14:00 97.8 77 132/88 (103) 95 I&O- Last 24 Hours up to 6 AM 01/17/19 06:00 Intake Total 990 ml Output Total 1200 ml Balance -210 ml CLEO JENSEN DO January 17, 2019 17:21
[2019-01-17 22:00] VITALS: BP 140/84
[2019-01-18 06:00] VITALS: BP 121/69
[2019-01-18 08:12] LABS: HEMATOCRIT 43.4 % (42.0-52.0); HEMOGLOBIN 14.6 g/dl (13.5-17.5); MEAN CORPUSCULAR HEMOGLOBIN 31.4 pg (27.0-33.0); MEAN CORPUSCULAR HGB CONC 33.6 g/dl (32.0-36.5); MEAN CORPUSCULAR VOLUME 93.3 fl (80.0-96.0); PLATELET COUNT, AUTOMATED 140 10^3/uL (150-450); RED BLOOD COUNT 4.65 10^6/uL (4.30-6.10); WHITE BLOOD COUNT 10.4 10^3/uL (4.0-10.0)
[2019-01-18 08:48] LABS: BLOOD UREA NITROGEN 22 MG/DL (7-18); CALCIUM LEVEL 8.8 MG/DL (8.5-10.1); CARBON DIOXIDE LEVEL 27 MEQ/L (21-32); CHLORIDE LEVEL 106 MEQ/L (98-107); CREATININE FOR GFR 0.76 MG/DL (0.70-1.30); GLOMERULAR FILTRATION RATE > 60.0 (>60); GLUCOSE, FASTING 97 MG/DL (70-100); MAGNESIUM LEVEL 1.9 MG/DL (1.8-2.4); POTASSIUM SERUM 4.2 MEQ/L (3.5-5.1); SODIUM LEVEL 140 MEQ/L (136-145)
[2019-01-18] MEDS: levETIRAcetam 250MG TABLET (KEPPRA) PO SCH ×2 (09:43→21:09)
[2019-01-18] MEDS: METHYLPHENIDATE 5 MG TAB PO SCH ×2 (09:44→21:09)
[2019-01-18] MEDS: PANTOPRAZOLE 40MG INJ (PROTONIX) (C9113) IV SCH (09:44)
[2019-01-18] MEDS: amLODIPine 10 MG TAB PO SCH (09:45)
[2019-01-18 14:00] VITALS: BP 132/71
--- NOTE | 2019-01-18 15:22 | IPNPDOC ---
Text Note Date of Service The patient was seen on 01/18/19. NOTE SUBJECTIVE: Patient is seen and examined in the room today with his . No recurrence of seizure. Patient still has difficulty answering time-related questions. He can not answer the date. Yesterday he states his right upper and lower extremity numbness since few weeks ago. Today he feels his right sided numbness started few months ago but he is not sure. He denies any worsening symptoms. OBJECTIVE: VITAL SIGNS: Listed below. GENERAL: Patient is alert and awake, not oriented to date. HEENT: Postsurgical scar noted on the left skull area. CARDIOVASCULAR: Positive S1, S2, regular rate. LUNGS: Clear to auscultation bilaterally. ABDOMEN: Soft, nontender. Bowel sounds present. EXTREMITIES: No edema. LABORATORY DATA: Listed below. MRI of brain without follow with contrast on 01/16/19: Area of fullness and low T1, heterogeneous T2 signal intensity across the splenium of the corpus callosum bilaterally associated with an area of contrast enhancement and restricted dif fusion adjacent to the atrium of the left lateral ventricle in the left temporal lobe. This area appears more prominent today. Petechial hemorrhage versus progression. Consider repeat CT study without contrast. CT head without contrast on 01/17/19: Today's CT study also shows thickening and heterogeneous increased density in the midline and across to the right side of the splenium of the corpus callosum. There is new increased density in the left posteromedial temporal lobe adjacent to the trigone of the lateral ventricle. These changes may reflect petechial hemorrhage and/or disease progression. ASSESSMENT AND PLAN: #. Recurrent seizures. - Patient has a history of glioblastoma status post craniotomy and surgical resection in October 2011 and April 2012. Gamma knife in August 2018. According to the family member, patient was determined to have recurrence of the tumor approximately August 2018. No further surgical intervention was performed at that time. - Patient started on Keppra 1000 mg by mouth daily. Patient's Keppra dose increased to 1000 mg by mouth twice a day since admission. No recurrence of seizure is noted. On seizure precaution. - Nephrology consulted. - Continued physical therapy. Patient did not pass home safety evaluation. #. Glioblastoma status post craniotomy and surgical resection. - MRI of brain performed on 01/16/19. CT of brain performed on 01/17/19. Both brain scans demonstrate findings suggestive of petechial hemorrhage and/or disease progression. call center specialist Neurosurgery from [facility] contacted. Recommend observation. Contact neurosurgery again if patient has acute change of his status. - Patient follows Dr. Terrazas locally in the outpatient setting #. Leukocytosis - suspect secondary to stress induced and previous Lunesta injection. Leukocytosis continues to improve. #. Deep vein thrombosis (DVT) prophylaxis. - On thromboembolic deterrent stockings (TEDS) and compression. A-FIB/CHADSVASC A-FIB History Current/History of A-Fib/PAF?: No VS,Fishbone, I+O VS, Fishbone, I+O Laboratory Tests 01/18/19 07:55 Red Blood Count 4.65, Mean Corpuscular Volume 93.3, Mean Corpuscular Hemoglobin 31.4, Mean Corpuscular Hemoglobin Concent 33.6, Red Cell Distribution Width 15.5 H, Calcium Level 8.8 Vital Signs Date Time Temp Pulse Resp B/P (MAP) Pulse Ox O2 Delivery O2 Flow Rate FiO2 01/18/19 09:45 79 127/79 01/18/19 06:00 98.3 15 95 I&O- Last 24 Hours up to 6 AM 01/18/19 06:00 Intake Total 1170 ml Output Total 1100 ml Balance 70 ml CLEO JENSEN DO January 18, 2019 15:22
[2019-01-18 22:00] VITALS: BP 131/84
[2019-01-19 06:00] VITALS: BP 115/72
[2019-01-19 06:31] LABS: HEMATOCRIT 42.3 % (42.0-52.0); HEMOGLOBIN 14.1 g/dl (13.5-17.5); MEAN CORPUSCULAR HEMOGLOBIN 31.9 pg (27.0-33.0); MEAN CORPUSCULAR HGB CONC 33.3 g/dl (32.0-36.5); MEAN CORPUSCULAR VOLUME 95.7 fl (80.0-96.0); PLATELET COUNT, AUTOMATED 116 10^3/uL (150-450); RED BLOOD COUNT 4.42 10^6/uL (4.30-6.10); WHITE BLOOD COUNT 9.4 10^3/uL (4.0-10.0)
[2019-01-19 06:52] LABS: BLOOD UREA NITROGEN 22 MG/DL (7-18); CALCIUM LEVEL 8.7 MG/DL (8.5-10.1); CARBON DIOXIDE LEVEL 28 MEQ/L (21-32); CHLORIDE LEVEL 105 MEQ/L (98-107); CREATININE FOR GFR 0.68 MG/DL (0.70-1.30); GLOMERULAR FILTRATION RATE > 60.0 (>60); GLUCOSE, FASTING 99 MG/DL (70-100); POTASSIUM SERUM 4.2 MEQ/L (3.5-5.1); SODIUM LEVEL 138 MEQ/L (136-145)
[2019-01-19 08:27] VITALS: BP 130/68
[2019-01-19] MEDS: amLODIPine 10 MG TAB PO SCH (08:27)
[2019-01-19] MEDS: levETIRAcetam 250MG TABLET (KEPPRA) PO SCH (08:28)
[2019-01-19] MEDS: PANTOPRAZOLE 40MG INJ (PROTONIX) (C9113) IV SCH (08:28)
[2019-01-19] MEDS: METHYLPHENIDATE 5 MG TAB PO SCH (08:28)
[2019-01-19] MEDS ORDERED: KEPP250T5 PO (08:42)
--- NOTE | 2019-01-19 10:45 | DS.PDOC ---
Discharge Summary General Date of Admission January 16, 2019 at 13:39 Date of Discharge January 19, 2019 Discharge Summary DISCHARGE DIAGNOSES: capital glioblastoma multiforme (GBM)/stage IV malignant glioma diagnosed in WITH neurosurgical resection twice at [facility] in [place], [place], S/P CHEMO Recurrent Seizures Apathy HTN DISCHARGE MEDICATIONS: PLS SEE BELOW HISTORY OF PRESENTING ILLNESS: Ottoniel Babcock is a 43-year-old man with a history of capital glioblastoma multiforme (GBM)/stage IV malignant glioma, with which he was diagnosed in and had neurosurgical resection twice at [facility] in [place], [place]. He follows with neurosurgeon in [place]. He last saw them a week ago. He had MRI scan of brain performed on January 09, 2019 which showed stable postsurgical changes in the left temporal and parietal lobe with a small area in the inferomedial temporal lobe where enhancement was seen, concerning for either recurrent, residual tumor or radiation necrosis. The patient also had radiation therapy and chemotherapy for his glioblastoma. The patient has a history of seizures since 2013. He apparently had two grand mal seizures. One happened at home lasting for 2-3 minutes and his whole body was shaking. He has a second seizure in the emergency department and he was given intravenous Dilantin and Ativan. Apparently at home patient was taking Keppra 1000 mg only at night. The patient feels better now. The family has concern that he is still slightly confused and not completely back to his normal self. The patient denies any headaches, neck or back pain. He denies any falls or loss of consciousness. He appears to have deficits in his receptive and expressive speech. I do not know his baseline. 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 He denies any fevers, chills, chest pain, abdominal pain, falls, loss of consciousness other than his seizures. HOSPITAL COURSE: Focal onset, secondary generalized tonic-clonic seizures. KEPPRA was increased to 1000mg po bid with no recurrent episodes He passe HSE for dc home. continue home pt/ot/speech therapy History of glioblastoma status post surgical resection and radiation therapy. 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 speech therapy no aspiration tolerating diet outpt pt/ot to be continued DISCHARGE PHYSICAL EXAMINATION: VITALS PLS SEE BELOW Heart: Regular rate and rhythm. Lungs: Clear to auscultation. Abdomen: Soft, nontender, nondistended. No pedal edema. No musculoskeletal abnormalities. No rash. No signs of meningeal irritation. The patient is awake, alert, oriented to time, place and person. He has receptive and expressive speech difficulty. 5/5 strength in all four extremities. He appears to have slight neglect on the right side. Normal sensation throughout. Gait was not tested. His right plantar is upgoing. Left plantar is downgoing. No dysmetria. LABORATORY DATA, IMAGING STUDIES, MICROBIOLOGY: PLS SEE BELOW TIME SPENT ON DISCHARGE: 30 MINUTES-HOME CARE, PT/OT/ST Vital Signs/I&Os Vital Signs Date Time Temp Pulse Resp B/P (MAP) Pulse Ox O2 Delivery O2 Flow Rate FiO2 01/19/19 08:27 77 130/68 01/19/19 06:00 98.0 20 96 I&O- Last 24 Hours up to 6 AM 01/19/19 06:00 Intake Total 1320 ml Output Total 0 ml Balance 1320 ml Laboratory Data Labs 24H Laboratory Tests 2 01/19/19 06:06: Nucleated Red Blood Cells % (auto) 0.0, Anion Gap 5L, Glomerular Filtration Rate > 60.0, Blood Urea Nitrogen 22H, Creatinine 0.68L, Sodium Level 138, Potassium Level 4.2, Chloride Level 105, Carbon Dioxide Level 28, Calcium Level 8.7, Magnesium Level 2.0 CBC/BMP Laboratory Tests 01/19/19 06:06 Red Blood Count 4.42, Mean Corpuscular Volume 95.7, Mean Corpuscular Hemoglobin 31.9, Mean Corpuscular Hemoglobin Concent 33.3, Red Cell Distribution Width 15.5 H, Calcium Level 8.7 Discharge Medications Scheduled Amlodipine Besylate (Amlodipine Besylate) 10 Mg Tablet, 10 MG PO DAILY, (Reported) Levetiracetam (Keppra) 250 Mg Tablet, 1,000 MG PO BID Methylphenidate HCl (Methylphenidate HCl) 5 Mg Tablet, 5 MG PO BID, (Reported) Allergies Coded Allergies: temozolomide (Verified Allergy, Intermediate, Hives, 12/02/18) BELINDA RIOS MD January 19, 2019 10:45
== END 2019-01-19 14:09 | disposition home health service (06) | DRG 101 ==
LOC: INTOOBSV 15:41 → M MSPAV 15:41 → OBSVTOIN 01-16 13:39
PROVIDERS: ADMIT Internal Medicine; ATTEND General Practice
DX: G40.409 Other generalized epilepsy and epileptic syndromes, not intractable, without status epilepticus (principal); Z87.891 Personal history of nicotine dependence; Z85.841 Personal history of malignant neoplasm of brain; Z79.899 Other long term (current) drug therapy; Z88.8 Allergy status to other drugs, medicaments and biological substances; D72.829 Elevated white blood cell count, unspecified; I10 Essential (primary) hypertension

== ENCOUNTER 2019-02-08 12:53 | Emergency (ER) | payer MEDICAID, MEDICARE ==
[~2019-02-08] VITALS: Ht 188 cm; Wt 90.9 kg
[~2019-02-08 12:53] MED LIST changes: +KEPP250T5 PO; +METH5TAB76 PO
[2019-02-08] MEDS ORDERED: LEVE250T5 (13:01)
[2019-02-08] MEDS ORDERED: ACET160S3 PO (13:01)
--- NOTE | 2019-02-08 13:52 | REP ---
Chest two views HISTORY: SIRS Comparison: 01/08/2019 The lungs are clear. The heart is normal in size. The pulmonary vasculature is normal in appearance. The bony structure is intact. IMPRESSION: No acute disease. Electronically Signed by Eliot Kwon MD 02/08/2019 01:43 P
[2019-02-08] MEDS ORDERED: NS 1,000 ML IV ONE (15:30)
[2019-02-08 15:39] LABS: BASO # 0.1 10^3/uL (0.0-0.2); BASO % 0.6 % (0.0-1.0); EOS # 0.1 10^3/uL (0.0-0.50); EOS % 1.3 % (0.0-3.0); HEMATOCRIT 43.1 % (42.0-52.0); HEMOGLOBIN 14.6 g/dl (13.5-17.5); LYMPH % 12.8 % (24.0-44.0); MEAN CORPUSCULAR HEMOGLOBIN 33.3 pg (27.0-33.0); MEAN CORPUSCULAR HGB CONC 33.9 g/dl (32.0-36.5); MEAN CORPUSCULAR VOLUME 98.4 fl (80.0-96.0); MONO # 0.6 10^3/uL (0.0-0.8); MONO % 6.9 % (0.0-5.0); NEUTROPHILS # 6.2 10^3/uL (1.8-7.7); PLATELET COUNT, AUTOMATED 125 10^3/uL (150-450); RED BLOOD COUNT 4.38 10^6/uL (4.30-6.10)
[2019-02-08 15:54] LABS: ALT/SGPT 69 U/L (12-78); BILIRUBIN,DIRECT 0.1 MG/DL (0.0-0.2); BILIRUBIN,TOTAL 0.4 MG/DL (0.2-1.0); BLOOD UREA NITROGEN 14 MG/DL (7-18); CALCIUM LEVEL 9.7 MG/DL (8.5-10.1); CARBON DIOXIDE LEVEL 29 MEQ/L (21-32); CHLORIDE LEVEL 105 MEQ/L (98-107); CREATININE FOR GFR 0.67 MG/DL (0.70-1.30); GLOMERULAR FILTRATION RATE > 60.0 (>60); GLUCOSE, FASTING 96 MG/DL (70-100); POTASSIUM SERUM 4.2 MEQ/L (3.5-5.1); SODIUM LEVEL 140 MEQ/L (136-145); TOTAL PROTEIN 8.1 GM/DL (6.4-8.2)
[2019-02-08 17:30] VITALS: BP 175/97
[2019-02-10] MEDS ORDERED: NON-325T5 PO (13:41)
[2019-02-18] MEDS ORDERED: KEPP250T5 PO (10:43)
== END 2019-02-08 17:37 | disposition home or self-care (01) ==
LOC: M ED 12:53
DX: C71.9 Malignant neoplasm of brain, unspecified (principal); R53.1 Weakness; I10 Essential (primary) hypertension; R56.9 Unspecified convulsions; Z87.891 Personal history of nicotine dependence; Z79.899 Other long term (current) drug therapy; Z88.8 Allergy status to other drugs, medicaments and biological substances

== ENCOUNTER 2019-02-18 13:13 | Inpatient (IN) | payer MEDICARE ==
[~2019-02-18] VITALS: Ht 188 cm; Wt 88.7 kg
[~2019-02-18 13:13] MED LIST changes: +ACET160S3 PO; +LEVE250T5; +NON-325T5 PO
[2019-02-18] MEDS ORDERED: ACETAMINOPHEN TAB 650MG DOSE (2X325MG) PO PRN (14:15)
[2019-02-18] MEDS ORDERED: traZODone 25MG PER 1/2 TABLET PO PRN (14:15)
--- NOTE | 2019-02-18 14:24 | HPEPDOC ---
[employer] Supervisor Note DATE OF ADMISSION: SOURCE OF ADMISSION INFORMATION: [facility] records, patient and CHIEF COMPLAINT: GBM recurrence with seizures HISTORY OF PRESENT ILLNESS: 43M pmh GBM stage 4 diagnosed 2014 s/p surgical resection and chemoradiation on Keppra followed by neurosurgeon in [place] and Dr. Terrazas at [facility], last received chemo in January who presented to [facility] ED on 02/10/19 with generalized clonic-tonic seizures for which he received Ativan. He was found to have new right sided weakness in both his upper and lower extremity and neurology was consulted for further management. CTH showed, cystic encephalomalacia in the left temporal and parietal lobes resolution of the small focus of petechial hemorrhage present in the posteromedial left temporal lobe and splenium of the corpus callosum. There is fullness in this area consistent with residual tumor. MRI on 02/11/19 showed, There is residual recurrent tumor in the posteromedial temporal lobes and corpus callosum and occipital lobes that is increased compared to the previous study. Neuro recommended increasing his Keppra dosing and considered right sided weakness to be from residual tumor vs Todds paralysis. His weakness gradually improved, his Starkey discontinued, and medications switched to oral. He initially had leukocytosis which resolved. He was evaluated by therapy and found to need assistance with ambulation and ADLs well below his prior level of function and deemed medically appropriate for discharge to ARU on 02/18/19. REVIEW OF SYSTEMS: The following is a completed review of systems and has been reviewed. Review of systems otherwise unremarkable. PAIN: Patient self reports no pain EYES: no vision loss. EARS, NOSE, & THROAT: denies dysphagia CARDIOVASCULAR: denies chest pain or palpitations PULMONARY: Negative. Denies shortness of breath GASTROINTESTINAL: no diarrhea/constipation GENITOURINARY: denies dysuria MUSCULOSKELETAL: RLE weakness NEUROLOGICAL: +aphasia ,+ apraxia, +right sided weakness SKIN: left cranial incision PSYCHIATRIC: Unremarkable All other review of systems found to be negative. PAST MEDICAL HISTORY: as per HPI PAST SURGICAL HISTORY: as per HPI ALLERGIES: Please see below. MEDICATIONS: Please see below. SOCIAL HISTORY: Lives with and children, no smoking, ETOH, or illicit drugs DIET: Regular PHYSICAL EXAMINATION: VITAL SIGNS: Please see below. GENERAL: Pleasant and cooperative. No acute distress. HEENT: PERRL. Extraocular movements intact, +nystagmus Clear conjunctiva CARDIOVASCULAR: Regular rate and rhythm. No murmurs, rubs, or gallops]. LUNGS: Clear to auscultation bilaterally. No wheezes. No rhonchi ABDOMEN: Soft, nontender, nondistended. Positive bowel sounds. Normal active bowel sounds. NEUROLOGICAL: Alert and oriented times three. Cranial nerves II through XII grossly intact. Sensation diminished RLE +dysmetria on the right +difficulty following 2 step commands with apraxia +expressive aphasia with anomia EXTREMITIES: 5\5 strength bilateral upper extremities. 5\5 strength right lower extremity. 4/5 strength in left lower extremity. SKIN: left cranial incision healed IMAGING: Imaging documentation personally reviewed by record FUNCTIONAL STATUS: Premorbid: Mod Independent with all activities of daily life as well as mobility using a cane. On Admission: Min-Total Assist for functional transfers, Max assist for lower body dressing, difficulty standing due to apraxia, standby assist for eating GOALS:Mod-I from a wheel chair level including functional transfers, supervision for household distances with RW, Mod-I for dressing, supervision bathing, medical optimization, caregiver training ASSESSMENT:44-year-old M with past medical history of GBM IV who presents status post seizures found to have recurrent tumor with gait and ADL impairments PLAN: 1. Rehab: PT/OT, [employer]- goal is to optimize gait and functional transfers, improve right sided neglect, assess and provide therapy for cognitive impairments 2. Neuro: h GBM stage 4 with breakthrough seizures and recurrence of mass with right sided paresis -c/u increased dose of Keppra 1250 BID -will consult/discuss with Dr. Terrazas possibility of Decadron given recent MRI demonstrates an increase in tumor size -c/u Methylphenidate for arousal and optimize participation in therapy 3. Cardiac: no known cardiac hx- however placed on Amlodipine for elevate BPs, will consult medicine to help with overall medical management 4. Resp: encourage incentive spirometry 5. : monitor PVRs 6. DVT ppx: TEDs and will order dopplers 7. GI ppx: will start protonix 8. Dispo: TBD POST ADMISSION PHYSICIAN EVALUATION: Medical and functional status: Description of medical status, medical assessment: As above. Rehabilitation diagnosis and current and prior cold morbid medical conditions as above. Risk of complications and plans to mitigate them as above. Description of functional status current status is as above. Prior status as above. Status compared to preadmission: There are no clinically significant differences between the patient's current status and the information described on the preadmission screening document. Treatment plan anticipated: Treatment plan is as described above. Required disciplines including physical therapy, occupational therapy, others as noted above. Intensity of services: 3 hours a day, 6 days a week. Special considerations: There are no specific special or safety considerations that would likely preclude immediate implementation of an intensive rehabilitation program or subsequently influence the plan of care ATTESTATION: Considering all the information above, it is my best judgment that this patient requires intensive rehabilitation therapy as described above and an inpatient hospital environment due to the complexity of nursing, medical, and rehabilitation needs required by the patient. Furthermore, this patient can reasonably be expected to participate in an benefit from an inpatient rehabilitation stay with an interdisciplinary team approach to the delivery of rehabilitation care under the direction and supervision of rehabilitation physician PROGNOSIS: Good ESTIMATED LENGTH OF STAY:12-14 days. PROJECTED DISCHARGE DESTINATION: Home with family support and any durable medical equipment required to increase functional safety and mobility TIME SPENT COUNSELING AND COORDINATING INITIAL CARE: Greater than 70 minutes. Vital Signs Vital Signs Date Time Temp Pulse Resp B/P (MAP) Pulse Ox O2 Delivery O2 Flow Rate FiO2 02/18/19 15:17 97.8 76 18 129/83 (98) 96 Home Medications Scheduled Amlodipine Besylate (Amlodipine Besylate) 10 Mg Tablet, 10 MG PO DAILY, (Reported) Levetiracetam (Keppra) 250 Mg Tablet, 1,250 MG PO BID Methylphenidate HCl (Methylphenidate HCl) 5 Mg Tablet, 5 MG PO BID, (Reported) Scheduled PRN Acetaminophen (Acetaminophen) 325 Mg Tablet, 650 MG PO Q4H PRN for PAIN, (Reported) Allergies Coded Allergies: temozolomide (Verified Allergy, Intermediate, Hives, 12/02/18) A-FIB/CHADSVASC A-FIB History Current/History of A-Fib/PAF?: No BRITTANIE MUNOZ MD Feb 18, 2019 14:24
[2019-02-18 15:17] VITALS: BP 129/83
[2019-02-18] MEDS ORDERED: LORazepam 2 MG/ML VIAL (J2060) IM PRN (16:00)
[2019-02-18 19:49] VITALS: BP 132/88
[2019-02-18] MEDS: SENNA 8.6 MG TAB (SENOKOT) PO SCH ×2 (20:24→20:28)
[2019-02-18] MEDS: DOCUSATE SODIUM 100 MG CAP PO SCH ×2 (20:25→20:28)
[2019-02-18] MEDS: levETIRAcetam 250MG TABLET (KEPPRA) PO SCH (20:25)
[2019-02-19 05:00] VITALS: BP 110/72
[2019-02-19 06:10] LABS: BASO # 0.1 10^3/uL (0.0-0.2); BASO % 0.8 % (0.0-1.0); EOS # 0.2 10^3/uL (0.0-0.50); EOS % 2.8 % (0.0-3.0); HEMATOCRIT 41.4 % (42.0-52.0); HEMOGLOBIN 13.9 g/dl (13.5-17.5); LYMPH # 1.8 10^3/uL (1.5-4.5); LYMPH % 23.7 % (24.0-44.0); MEAN CORPUSCULAR HEMOGLOBIN 33.3 pg (27.0-33.0); MEAN CORPUSCULAR HGB CONC 33.6 g/dl (32.0-36.5); MONO # 0.8 10^3/uL (0.0-0.8); MONO % 10.6 % (0.0-5.0); NEUTROPHILS # 4.8 10^3/uL (1.8-7.7); NEUTROPHILS % 61.5 % (36.0-66.0); PLATELET COUNT, AUTOMATED 175 10^3/uL (150-450); RED BLOOD COUNT 4.18 10^6/uL (4.30-6.10); WHITE BLOOD COUNT 7.7 10^3/uL (4.0-10.0)
[2019-02-19 06:39] LABS: ALBUMIN 3.2 GM/DL (3.2-5.2); ALT/SGPT 57 U/L (12-78); BILIRUBIN,TOTAL 0.3 MG/DL (0.2-1.0); BLOOD UREA NITROGEN 16 MG/DL (7-18); CALCIUM LEVEL 8.7 MG/DL (8.5-10.1); CARBON DIOXIDE LEVEL 28 MEQ/L (21-32); CHLORIDE LEVEL 105 MEQ/L (98-107); CREATININE FOR GFR 0.68 MG/DL (0.70-1.30); GLOMERULAR FILTRATION RATE > 60.0 (>60); GLUCOSE, FASTING 94 MG/DL (70-100); POTASSIUM SERUM 4.1 MEQ/L (3.5-5.1); SODIUM LEVEL 139 MEQ/L (136-145); TOTAL PROTEIN 7.5 GM/DL (6.4-8.2)
[2019-02-19] MEDS: amLODIPine 10 MG TAB PO SCH (08:54)
[2019-02-19] MEDS: levETIRAcetam 250MG TABLET (KEPPRA) PO SCH ×2 (08:54→20:16)
[2019-02-19] MEDS: DOCUSATE SODIUM 100 MG CAP PO SCH ×2 (08:54→20:16)
[2019-02-19] MEDS: PANTOPRAZOLE 40MG TAB (PROTONIX) PO SCH (08:55)
[2019-02-19] MEDS: METHYLPHENIDATE 5 MG TAB PO SCH ×2 (08:55→14:37)
--- NOTE | 2019-02-19 13:08 | IPNPDOC ---
Subjective Date Seen The patient was seen on 02/19/19. Subjective Chief Complaint/HPI Patient is a 43-year-old male, past medical history significant for Glioblastoma S/P resection and chemoradiation. Patient presented to the hospital with generalized clonic tonic seizures. He was found to have new right- sided weakness in his upper and lower extremity. CT scan of his brain showed cystic encephalomalacia and left temporal and. A lo bes. MRI of his brain showed residual recurrent tumor in posteromedial temporal lobes and corpus callosum and occipital lobes. Neurology was consulted and he recommended increasing his Keppra dose. He was subsequently discharged to inpatient rehabilitation unit for mobilization and strengthening given new right-sided weakness Events since last encounter Patient denies any seizure activity since yesterday. Has no complaints. Denies chest pain, weakness, shortness of breath, chills or fever. Objective Physical Examination General Exam: Positive: Alert, Cooperative, No Acute Distress Eye Exam: Positive: PERRLA, EOMI ENT Exam: Positive: Atraumatic, Mucous membr. moist/pink Neck Exam: Positive: Supple; Negative: JVD, thyromegaly Chest Exam: Positive: Clear to auscultation, Normal air movement; Negative: Rales, Rhonchi, Wheezing Heart Exam: Positive: Regular Rhythm Abdomen Exam: Positive: Normal bowel sounds, Soft; Negative: Tenderness Extremity Exam: Negative: Clubbing, Cyanosis, Edema Skin Exam: Positive: Nl turgor and temperature; Negative: Rash, Breakdown Psych Exam: Positive: Mental status NL, Mood NL, Oriented x 3; Negative: Anxiety Assessment /Plan Assessment Acute Generalized Tonic Clonic Seizures -Due to underlying glioblastoma -Continue Keppra 1250 by mouth twice a day -Seizure precautions Right sided weakness -Due to Abiel's paralysis and, Residual GBM Tumor -outpatient follow up with oncology -continue to monitor for acute neurologic changes Glioblastoma -S/P resection chemo and radiation therapy at [facility] -MRI brain this admit showing residual /new growth -outpatient follow up with oncology when rehabilitation completed Right 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 Continued in ARU for mobilization and rehabilitation DVT Prophylaxis SCDs/TEDs Plan/VTE VTE Prophylaxis Ordered?: Yes VS, I&O, 24H, Fishbone Vital Signs/I&O Vital Signs Date Time Temp Pulse Resp B/P (MAP) Pulse Ox O2 Delivery O2 Flow Rate FiO2 02/19/19 08:54 73 110/72 02/19/19 05:00 98.6 18 100 I&O- Last 24 Hours up to 6 AM 02/19/19 06:00 Intake Total 660 ml Balance 660 ml Laboratory Data 24H LABS Laboratory Tests 2 02/19/19 05:19: Immature Granulocyte % (Auto) 0.6, White Blood Count 7.7, Red Blood Count 4.18L, Hemoglobin 13.9, Hematocrit 41.4L, Mean Corpuscular Volume 99.0H, Mean Corpuscular Hemoglobin 33.3H, Mean Corpuscular Hemoglobin Concent 33.6, Red Cell Distribution Width 14.1, Platelet Count 175, Neutrophils (%) (Auto) 61.5, Lymphocytes (%) (Auto) 23.7L, Monocytes (%) (Auto) 10.6H, Eosinophils (%) (Auto) 2.8, Basophils (%) (Auto) 0.8, Neutrophils # (Auto) 4.8, Lymphocytes # (Auto) 1.8, Monocytes # (Auto) 0.8, Eosinophils # (Auto) 0.2, Basophils # (Auto) 0.1, Nucleated Red Blood Cells % (auto) 0.0, Anion Gap 6L, Glomerular Filtration Rate > 60.0, Blood Urea Nitrogen 16, Creatinine 0.68L, Sodium Level 139, Potassium Level 4.1, Chloride Level 105, Carbon Dioxide Level 28, Calcium Level 8.7, Aspartate Amino Transf (AST/SGOT) 32, Alanine Aminotransferase (ALT/SGPT) 57, Alkaline Phosphatase 125H, Total Bilirubin 0.3, Total Protein 7.5, Albumin 3.2, Albumin/Globulin Ratio 0.74L CBC/BMP Laboratory Tests 02/19/19 05:19 Red Blood Count 4.18 L, Mean Corpuscular Volume 99.0 H, Mean Corpuscular Hemoglobin 33.3 H, Mean Corpuscular Hemoglobin Concent 33.6, Red Cell Distribution Width 14.1, Neutrophils (%) (Auto) 61.5, Lymphocytes (%) (Auto) 23.7 L, Monocytes (%) (Auto) 10.6 H, Eosinophils (%) (Auto) 2.8, Basophils (%) (Auto) 0.8, Neutrophils # (Auto) 4.8, Lymphocytes # (Auto) 1.8, Monocytes # (Auto) 0.8, Eosinophils # (Auto) 0.2, Basophils # (Auto) 0.1, Calcium Level 8.7, Aspartate Amino Transf (AST/SGOT) 32, Alanine Aminotransferase (ALT/SGPT) 57, Alkaline Phosphatase 125 H, Total Bilirubin 0.3, Total Protein 7.5, Albumin 3.2 DARRIAN SELBY [facility] Feb 19, 2019 13:08
[2019-02-19 14:00] VITALS: BP 111/75
--- NOTE | 2019-02-19 15:16 | NUR ---
Recommend regular solids, thin liquids, small bite/sip. Pt feeds himself independently and tolerates pills whole. Recommend ENT consult d/t excrescence on hard palate observed during oral motor exam. Addendum: 02/19/19 at 1517 by REYNA MEJIAS [facility] Amended: Links added.
--- NOTE | 2019-02-19 15:26 | NUR ---
Pt w/ moderate global aphasia (receptive skills > expressive skills) which is impacted by cognitive deficits. Recommend to communicate w/ pt simple Y/N questions and supplemental pictures and gestures. Addendum: 02/19/19 at 1528 by REYNA MEJIAS [facility] Amended: Links added.
--- NOTE | 2019-02-19 15:34 | NUR ---
Pt w/ severe cognitive impairment which is impacted by difficulties w/ expressive/receptive language. Significant perseveration noted, requiring increased time between directives. Pt is aware of cognitive deficits and has strong self-monitoring abilities. Recommend give pt simple directions and allow extra time between tasks. Supplement w/ pictures and gestures as able. Pt communicates best w/ simple Y/N questions. Addendum: 02/19/[address] [facility] Amended: Links added.
--- NOTE | 2019-02-19 16:37 | REP ---
Duplex extremity venous ultrasound: Bilateral lower extremity. History: Immobility. Rule out DVT. Findings: The deep veins are anechoic and fully compressible from the groin to the popliteal fossa in the left and right lower extremity. Color flow imaging is homogeneous. Spectral Doppler interrogation demonstrates intact respiratory variation in flow and normal manual augmentation of flow. There is no evidence of deep vein thrombosis. Impression: Negative bilateral lower extremity duplex venous ultrasound. No evidence of deep vein thrombosis. Electronically Signed by Amor Velazquez MD 02/19/2019 04:29 P
[2019-02-19 20:00] VITALS: BP 121/76
[2019-02-19] MEDS: SENNA 8.6 MG TAB (SENOKOT) PO SCH (20:16)
[2019-02-20 05:35] VITALS: BP 133/86
[2019-02-20] MEDS: DOCUSATE SODIUM 100 MG CAP PO SCH ×2 (08:25→20:21)
[2019-02-20] MEDS: levETIRAcetam 250MG TABLET (KEPPRA) PO SCH ×2 (08:25→20:21)
[2019-02-20] MEDS: PANTOPRAZOLE 40MG TAB (PROTONIX) PO SCH (08:25)
[2019-02-20] MEDS: METHYLPHENIDATE 5 MG TAB PO SCH ×2 (08:26→14:15)
[2019-02-20] MEDS: amLODIPine 10 MG TAB PO SCH (08:28)
--- NOTE | 2019-02-20 11:51 | IPNPDOC ---
Subjective Date Seen The patient was seen on 02/20/19. Subjective Chief Complaint/HPI Patient is a 43-year-old male, past medical history significant for Glioblastoma S/P resection and chemoradiation. Patient presented to the hospital with generalized clonic tonic seizures. He was found to have new right- sided weakness in his upper and lower extremity. CT scan of his brain showed cystic encephalomalacia and left temporal and. A lobes. MRI of his brain showed residual recurrent tumor in posteromedial temporal lobes and corpus callosum and occipital lobes. Neurology was consulted and he recommended increasing his Keppra dose. He was subsequently discharged to inpatient rehabilitation unit for mobilization and strengthening given new right-sided weakness Events since last encounter Working with Ot at bedside, no new complaints. denies chills, fever, chest pain, SOB Objective Physical Examination General Exam: Positive: Alert, Cooperative, No Acute Distress Eye Exam: Positive: PERRLA, EOMI ENT Exam: Positive: Atraumatic, Mucous membr. moist/pink Neck Exam: Positive: Supple; Negative: JVD, thyromegaly Chest Exam: Positive: Clear to auscultation, Normal air movement; Negative: Rales, Rhonchi, Wheezing Heart Exam: Positive: Regular Rhythm Abdomen Exam: Positive: Normal bowel sounds, Soft; Negative: Tenderness Extremity Exam: Negative: Clubbing, Cyanosis, Edema Skin Exam: Positive: Nl turgor and temperature; Negative: Rash, Breakdown Psych Exam: Positive: Mental status NL, Mood NL, Oriented x 3; Negative: Anxiety Assessment /Plan Assessment Acute Generalized Tonic Clonic Seizures -patient has not had any seizure activity in the past 24 hours -seizures due to underlying glioblastoma -Continue Keppra 1250 by mouth twice a day -continue seizure precautions Right sided weakness -Due to Abiel's paralysis and, Residual GBM Tumor -outpatient follow up with oncology -continue to monitor for acute neurologic changes Glioblastoma -S/P resection chemo and radiation therapy at [facility] -MRI brain this admit showing residual /new growth -outpatient follow up with oncology when rehabilitation completed 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
[2019-02-20 14:00] VITALS: BP 119/82
[2019-02-20] MEDS: SENNA 8.6 MG TAB (SENOKOT) PO SCH (20:21)
[2019-02-20 22:00] VITALS: BP 121/84
[2019-02-21 06:00] VITALS: BP 122/72
[2019-02-21] MEDS: DOCUSATE SODIUM 100 MG CAP PO SCH (08:18)
[2019-02-21 08:19] VITALS: BP 138/87
[2019-02-21] MEDS: PANTOPRAZOLE 40MG TAB (PROTONIX) PO SCH (08:19)
[2019-02-21] MEDS: amLODIPine 10 MG TAB PO SCH (08:19)
[2019-02-21] MEDS: levETIRAcetam 250MG TABLET (KEPPRA) PO SCH (08:19)
[2019-02-21 08:20] VITALS: BP 138/87
[2019-02-21] MEDS: METHYLPHENIDATE 5 MG TAB PO SCH (08:21)
[2019-02-21 08:44] VITALS: BP 201/93
[2019-02-21 08:50] VITALS: BP 201/93
[2019-02-21] MEDS ORDERED: dexameTHASONE 20 MG/5 ML VIAL (J1100) IV STA (08:55)
[2019-02-21 09:22] LABS: HEMATOCRIT 48.2 % (42.0-52.0); HEMOGLOBIN 15.6 g/dl (13.5-17.5); MEAN CORPUSCULAR HEMOGLOBIN 33.6 pg (27.0-33.0); MEAN CORPUSCULAR HGB CONC 32.4 g/dl (32.0-36.5); MEAN CORPUSCULAR VOLUME 103.9 fl (80.0-96.0); PLATELET COUNT, AUTOMATED 204 10^3/uL (150-450); RED BLOOD COUNT 4.64 10^6/uL (4.30-6.10); WHITE BLOOD COUNT 9.7 10^3/uL (4.0-10.0)
[2019-02-21 09:36] LABS: ALBUMIN 4.1 GM/DL (3.2-5.2); ALT/SGPT 76 U/L (12-78); BILIRUBIN,TOTAL 0.2 MG/DL (0.2-1.0); BLOOD UREA NITROGEN 20 MG/DL (7-18); CALCIUM LEVEL 9.3 MG/DL (8.5-10.1); CARBON DIOXIDE LEVEL 20 MEQ/L (21-32); CHLORIDE LEVEL 106 MEQ/L (98-107); CREATININE FOR GFR 1.14 MG/DL (0.70-1.30); GLOMERULAR FILTRATION RATE > 60.0 (>60); GLUCOSE, FASTING 123 MG/DL (70-100); POTASSIUM SERUM 4.2 MEQ/L (3.5-5.1); SODIUM LEVEL 142 MEQ/L (136-145); TOTAL PROTEIN 8.5 GM/DL (6.4-8.2)
--- NOTE | 2019-02-21 11:11 | REP ---
CT BRAIN WITHOUT CONTRAST: CT brain performed without IV contrast and compared to multiple prior studies including 02/10/2019. The patient is status post left temporoparietal craniotomy. Once again there is cystic encephalomalacia in the left temporoparietal region. Small residual petechial hemorrhage is seen in the left temporal lobe on image 13. There appears to be a new small petechial hemorrhage in the left posterior parietal lobe on image 16 and more superiorly and anteriorly in the medial left parietal lobe on image 18. A tiny petechial hemorrhage more superiorly in the left parietal lobe on image 20 is unchanged. Ill-defined density in the posterior right corpus callosum has not significantly changed. No new findings are seen on the right. Ventricular system is unchanged in configuration. No other new abnormalities are seen in the brain. IMPRESSION: There appears to be a new area of petechial hemorrhage in the left posterior parietal lobe and superiorly and medially in the left parietal lobe. Other findings are unchanged as discussed above. Electronically Signed by Richard Damon MD 02/21/2019 04:32 P
--- NOTE | 2019-03-02 16:38 | PMRDS ---
DATE OF ADMISSION: 02/18/2019 DATE OF DISCHARGE: 02/21/2019 CHIEF COMPLAINT/DISCHARGE DIAGNOSIS: Glioblastoma multiform with seizures. HISTORY OF PRESENT ILLNESS: 43-year-old male a past medical history of GBM stage IV diagnosed in 2013 status post surgical resection and chemo radiation on Keppra followed by a neurosurgeon in [place] and Dr. Terrazas at [facility], last received chemo in January who presented to [facility] ED on 02/10/2019 with generalized clonic tonic seizures for which she received Ativan. He was found to have a new right-sided weakness in both his upper and lower extremity and neurology was consulted for further management. CTA showed "cystic encephalomalacia in the left temporal parietal lobe...resolution of the small focus of petechial hemorrhage present in the posterior medial left temporal lobe and splenium of the corpus quadrant. There is fullness in this area consistent with residual tumor." The patient's MRI on 02/11/2019 showed "there is residual recurrent tumor in the posterior medial temporal lobes and corpus callosum in occipital lobes was increased compared to previous study." The patient neuro recommended increasing his Keppra dosing be considered right-sided weakness to be from residual tumor versus Abiel's paralysis. His weakness gradually improved. His Starkey discontinued and medications switched to oral. He initially had leukocytosis which resolved. He was evaluated by therapy and found to need assistance with ambulation, ADLs well below his prior level of function and deemed medically appropriate for discharge to ARU on 02/18/2019. PAST MEDICAL HISTORY: As per HPI. HOSPITAL COURSE: The patient was admitted and enrolled in a comprehensive PT, OT, speech language pathology program. He received 24-hour nursing supervision and weekly team meetings were set up to assess his progress. However on 02/21/2019 the patient had a grand-mal seizure and was discharge acutely off of the rehab unit for further workup on the inpatient setting.
== END 2019-02-21 09:05 | disposition short-term general hospital (02) | DRG 92 ==
LOC: M PM&R 15:17
PROVIDERS: ADMIT Physical Medicine & Rehabilitation; ATTEND Physical Medicine & Rehabilitation
DX: G83.84 Todd's paralysis (postepileptic) (principal); R47.01 Aphasia; C71.9 Malignant neoplasm of brain, unspecified; G40.409 Other generalized epilepsy and epileptic syndromes, not intractable, without status epilepticus; R48.2 Apraxia; R27.8 Other lack of coordination; R48.8 Other symbolic dysfunctions; Z79.899 Other long term (current) drug therapy; Z88.8 Allergy status to other drugs, medicaments and biological substances; Z92.21 Personal history of antineoplastic chemotherapy; Z92.3 Personal history of irradiation

== ENCOUNTER 2019-02-21 09:06 | Observation (INO) | payer MEDICARE ==
[2019-02-21] VITALS (7 sets, daily range): BP systolic 107–139; BP diastolic 68–89
[2019-02-21] MEDS ORDERED: LORazepam 2 MG/ML VIAL (J2060) As Ordered ONE (09:35)
[2019-02-21] MEDS ORDERED: PHENYTOIN INJection 1,000 MG in NS 100 ML IV ONE (10:00)
[2019-02-21 10:23] LABS: HEMATOCRIT 42.9 % (42.0-52.0); HEMOGLOBIN 14.6 g/dl (13.5-17.5); MEAN CORPUSCULAR VOLUME 99.8 fl (80.0-96.0); PLATELET COUNT, AUTOMATED 171 10^3/uL (150-450); WHITE BLOOD COUNT 5.8 10^3/uL (4.0-10.0)
[2019-02-21] MEDS ORDERED: LORazepam 2 MG/ML VIAL (J2060) IV STA ×2 (10:38→10:42)
[2019-02-21 10:50] LABS: ALBUMIN 3.3 GM/DL (3.2-5.2); ALT/SGPT 65 U/L (12-78); BILIRUBIN,TOTAL 0.2 MG/DL (0.2-1.0); BLOOD UREA NITROGEN 19 MG/DL (7-18); CALCIUM LEVEL 9.1 MG/DL (8.5-10.1); CARBON DIOXIDE LEVEL 28 MEQ/L (21-32); CHLORIDE LEVEL 106 MEQ/L (98-107); CREATININE FOR GFR 0.82 MG/DL (0.70-1.30); GLOMERULAR FILTRATION RATE > 60.0 (>60); GLUCOSE, FASTING 113 MG/DL (70-100); POTASSIUM SERUM 4.1 MEQ/L (3.5-5.1); SODIUM LEVEL 140 MEQ/L (136-145)
[2019-02-21] MEDS ORDERED: D5W/0.45% SODIUM CHLORIDE 1,000 ML IV SCH (11:00)
[2019-02-21] MEDS ORDERED: PROHANCE 279.3MG/ML 15ML VIAL (A9576) As Ordered ONE (11:32)
[2019-02-21] MEDS ORDERED: PROHANCE 279.3MG/ML 5ML VIAL (A9576) As Ordered ONE (11:32)
[2019-02-21] MEDS ORDERED: levETIRAcetam INJection 1,250 MG in D5W 100 ML IV SCH ×2 (12:00→21:00)
[2019-02-21] MEDS ORDERED: dexameTHASONE 4 MG/ML 1ML VIAL (J1100) IV SCH (17:00)
--- NOTE | 2019-02-21 17:33 | HPEPDOC ---
[facility] Medical History & Physical Date of Admission Feb 21, 2019 Date of Service: Feb 21, 2019 History and Physical CHIEF COMPLAINT: Seizure-like activity HISTORY OF PRESENT ILLNESS: Patient is a 44-year-old man with known GBM status post surgical resection and chemoradiation [facility] following with Dr. Navarrete locally here. Who is had multiple hospitalizations at [facility] for total within the last 2 months. Most recently for seizure activity intolerance paralysis seen by neurology at that time and initiated on Keppra therapy. The plan was for him to be discharged to acute rehabilitation and from their follow- up with oncology on the outpatient setting as he was noted to have some disease progression on MRI 10 days ago. While on the acute rehabilitation floor today the patient did develop confusion and subsequently became unresponsive with myoclonic movements in the right side of his face and upper extremity.. Otherwise no specific new evidence of weight loss, hair loss, headache, visual changes, chest pain, shortness of breath, cough, nausea, vomiting, diarrhea, abdominal pain, muscle aches, worsening arthritis, change in mood PAST MEDICAL HISTORY: 1. Hypertension. 2. 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 ALLERGIES: Please see below PAST SURGICAL HISTORY: 1. [Resection of glioblastoma multiform a [facility] in [place] 2. Gamma knife 2018. SOCIAL HISTORY: Lives with: Lives with and children, Employment: Not currently working, Tobacco use: Denies. ETOH: Denies, Illicit drug use: Denies, Tattoos done unprofessionally: Denies, CODE STATUS: DNR but not DNI FAMILY HISTORY:Reviewed and noncontributory REVIEW OF SYSTEMS: 10 systems reviewed and negative other than HPI PHYSICAL EXAMINATION: VITAL SIGNS: Temperature 98.1, pulse 104, respiratory rate 16, blood pressure 138/89, pulse oximetry 94% % on 2 L GENERAL: Unresponsive man exhibiting tonic-clonic movements and tongue fasciculations of the right side of his face as well as right upper extremity s HEENT: Moist mucous membranes no elevation and CVP, jaws clenched, old craniotomy scar CARDIOVASCULAR: S1 S2 regular no additional heart sounds appreciated. Tachycardic at the time of exam RESPIRATORY: Clear to auscultation bilaterally. ABDOMINAL: Bowel sounds present abdomen soft and nontender EXTREMITIES: No clubbing cyanosis or edema NEUROLOGICAL: Pupillary light reflex is not intact at the time of the exam unable to cooperate with neurological testing. He does exhibit a gag reflex PSYCHOLOGICAL: Appropriate LABORATORY DATA: See below. MICROBIOLOGY: Please see below. IMAGING: CT head:There appears to be a new area of petechial hemorrhage in the left posterior parietal lobe and superiorly and medially in the left parietal lobe. Other findings are unchanged as discussed above. ASSESSMENT & PLAN: This is a 44-year-old man with GBM presenting now with se izgissel. PROBLEMS: 1. GBM with seizure: I did concern for status epilepticus as such she will be admitted to the medical intensive care unit his seizure has not yet broken he received 2 mg of IM Ativan I will provide him with an additional 2 mg now and reevaluate he did receive an additional 2 after that he is currently on Keppra 1250 mg twice a day I'll transition this to IV and loaded with Dilantin as well. I have spoken to oncology feel he would be better served for inpatient therapy at [facility] and feel there is little to be offered to him here. I will consult neurology for recurrent seizures and Abiel's paralysis. I will check a stat CT head as well as a stat MRI of the brain with and without contrast 2. Abiel's paralysis we're aggressively treating his seizures at this time 3. GBM: Prognosis is poor I did discuss hospice care with the patient's and dad who are present at the bedside should he fail to improve or no further treatment options are available regarding his malignancy we will consider that 4.Hypertension: Continue with his cousin channel zenobia when able DVT PROPHYLAXIS: Will hold until MRI and CTs are completed to exclude any bl eeding DISPOSITION: Transfer the medical intensive care unit for possible status epile pticus Vital Signs Vital Signs Date Time Temp Pulse Resp B/P (MAP) Pulse Ox O2 Delivery O2 Flow Rate FiO2 02/21/19 14:00 78 111/68 (82) 97 2.0 02/21/19 13:00 98.2 12 Laboratory Data Labs 24H Laboratory Tests 2 02/21/19 10:07: Nucleated Red Blood Cells % (auto) 0.0, Anion Gap 6L, Glomerular Filtration Rate > 60.0, Lactic Acid Level 3.0*H, Blood Urea Nitrogen 19H, Creatinine 0.82, S odium Level 140, Potassium Level 4.1, Chloride Level 106, Carbon Dioxide Level 28, Calcium Level 9.1, Aspartate Amino Transf (AST/SGOT) 33, Alanine Aminotransferase (ALT/SGPT) 65, Alkaline Phosphatase 120H, Total Bilirubin 0.2, Total Protein 8.0, Albumin 3.3, Albumin/Globulin Ratio 0.70L 02/21/19 14:37: Lactic Acid Followup at 4 Hours 2.5*H CBC/BMP Laboratory Tests 02/21/19 10:07 Red Blood Count 4.30, Mean Corpuscular Volume 99.8 H, Mean Corpuscular Hemo globin 34.0 H, Mean Corpuscular Hemoglobin Concent 34.0, Red Cell Distribution Width 13.8, Calcium Level 9.1, Aspartate Amino Transf (AST/SGOT) 33, Alanine Aminotransferase (ALT/SGPT) 65, Alkaline Phosphatase 120 H, Total Bilirubin 0.2, Total Protein 8.0, Albumin 3.3 Home Medications Scheduled Amlodipine Besylate (Amlodipine Besylate) 10 Mg Tablet, 10 MG PO DAILY Levetiracetam (Keppra) 250 Mg Tablet, 1,250 MG PO BID Methylphenidate HCl (Methylphenidate HCl) 5 Mg Tablet, 5 MG PO BID Scheduled PRN Acetaminophen (Acetaminophen) 325 Mg Tablet, 650 MG PO Q4H PRN for PAIN Allergies Coded Allergies: temozolomide (Verified Allergy, Intermediate, Hives, 12/02/18) A-FIB/CHADSVASC A-FIB History Current/History of A-Fib/PAF?: SHEREEN Dueñas MD Feb 21, 2019 17:33
[2019-02-21] MEDS ORDERED: PHENYTOIN 100 MG/2 ML VIAL (J1165) IV SCH ×2 (18:00→21:00)
--- NOTE | 2019-02-21 18:03 | DS.PDOC ---
Discharge Summary General Date of Admission Feb 21, 2019 at 09:25 Date of Discharge 02/21/2019 Discharge Summary DISCHARGE DIAGNOSIS: Seizure SECONDARY DIAGNOSIS: 1. GBM 2. She disorder secondary to GBM 3. Abiel's paralysis secondary to seizure disorder 4. Hypertension PROCEDURES PERFORMED DURING STAY: None CONSULTANTS: Neurology HOSPITAL COURSE: Patient is a 44-year-old man with known GBM status post surgical resection and chemoradiation [facility] following with Dr. Navarrete locally here. Who is had multiple hospitalizations at here at [facility], 4 total within the last 2 months. Most recently for seizure activity intolerance paralysis seen by neurology at that time and initiated on Keppra therapy. The plan was for him to be discharged to acute rehabilitation and from their follow- up with oncology on the outpatient setting as he was noted to have some disease progression on MRI 10 days ago. While on the acute rehabilitation floor today the patient did develop confusion and subsequently became unresponsive with myoclonic movements in the right side of his face and upper extremity. He did not have any axis we're unable to break his seizures and as such was transferred to medical intensive care unit with concern for status epilepticus. He received 2 mg of IM Ativan and subsequently 2 mg of IV Ativan without positive response of then 2 additional milligrams of IV Ativan as well as a Dilantin load of 1 g followed by 200 mg every 8 hours. Following this the patient's seizures did break with an increased level of alertness. He did have an MRI of the brain for formal report is currently pending however pulmonary report revealed 13 x 6 mm area intratumor hemorrhage as well as disease progression. I did call and speak with neurosurgery at [facility] Dr. Flood as well as the tank house operator environmental issues instructor who graciously accepted this patient in transfer for further evaluation of further neurosurgery treatment. I did discuss briefly with the patient's hospice and comfort measures which they're not ready for yet and wish to see if [facility] is any other options to offer DISCHARGE MEDICATIONS: Please see below. DISCHARGE CONDITION: Improved PROGNOSIS: Poor FOLLOW UP: [facility] neurosurgery and ICU care ACTIVITY: Bedrest. DIET: And by mouth TIME SPENT ON DISCHARGE: 50 minutes Vital Signs/I&Os Vital Signs Date Time Temp Pulse Resp B/P (MAP) Pulse Ox O2 Delivery O2 Flow Rate FiO2 02/21/19 16:00 98.2 102 14 111/76 (88) 96 2.0 Laboratory Data Labs 24H Laboratory Tests 2 02/21/19 10:07: Nucleated Red Blood Cells % (auto) 0.0, Anion Gap 6L, Glomerular Filtration Rate > 60.0, Lactic Acid Level 3.0*H, Blood Urea Nitrogen 19H, Creatinine 0.82, Sodium Level 140, Potassium Level 4.1, Chloride Level 106, Carbon Dioxide Level 28, Calcium Level 9.1, Aspartate Amino Transf (AST/SGOT) 33, Alanine Aminotransferase (ALT/SGPT) 65, Alkaline Phosphatase 120H, Total Bilirubin 0.2, Total Protein 8.0, Albumin 3.3, Albumin/Globulin Ratio 0.70L 02/21/19 14:37: Lactic Acid Followup at 4 Hours 2.5*H CBC/BMP Laboratory Tests 02/21/19 10:07 Red Blood Count 4.30, Mean Corpuscular Volume 99.8 H, Mean Corpuscular Hemoglobin 34.0 H, Mean Corpuscular Hemoglobin Concent 34.0, Red Cell Di stribution Width 13.8, Calcium Level 9.1, Aspartate Amino Transf (AST/SGOT) 33, Alanine Aminotransferase (ALT/SGPT) 65, Alkaline Phosphatase 120 H, Total Bilirubin 0.2, Total Protein 8.0, Albumin 3.3 Discharge Medications Scheduled Amlodipine Besylate (Amlodipine Besylate) 10 Mg Tablet, 10 MG PO DAILY, (Reported) Levetiracetam (Keppra) 250 Mg Tablet, 1,250 MG PO BID Methylphenidate HCl (Methylphenidate HCl) 5 Mg Tablet, 5 MG PO BID, (Reported) Scheduled PRN Acetaminophen (Acetaminophen) 325 Mg Tablet, 650 MG PO Q4H PRN for PAIN, (Reported) Allergies Coded Allergies: temozolomide (Verified Allergy, Intermediate, Hives, 12/02/18) SHEREEN YEH MD Feb 21, 2019 18:03
[2019-02-21] MEDS ORDERED: ENOXAPARIN 40 MG/0.4 ML SYRINGE (J1650) SC SCH (21:00)
--- NOTE | 2019-02-22 08:41 | REP ---
MRI BRAIN WITH AND WITHOUT CONTRAST: Multiple sequences obtained in the axial, coronal, and sagittal planes prior to and following the intravenous administration of 18 mL ProHance. Comparison made with prior study of 02/11/2019. The patient has had prior left temporoparietal craniotomy. There is associated cystic encephalomalacia in the underlying left temporal and parietal lobes. There is again heterogeneous enhancement in the inferomedial left temporal lobe which has increased since the prior exam. Abnormal enhancement is also seen more posteriorly in the region of the left occipital horn and temporal horn of left lateral ventricle. Enhancement also is seen in the anterior left occipital lobe and superior left temporal lobe. Abnormal enhancement also involves the splenium of the corpus callosum bilaterally and anterior right occipital lobe. All of these areas have increased since the prior study consistent with increasing tumor in these regions. Heterogeneous increased and decreased signal is seen in the posterior left temporal lobe, corpus callosum, and medial left temporal lobe consistent with areas of acute and chronic hemorrhage. There is an area of new hemorrhage in the right splenium of corpus callosum measuring 13 x 6 mm. A new petechial hemorrhage is seen in the superior medial left parietal lobe. Other old petechial hemorrhages are again seen in both cerebral hemispheres but particularly on the left. Diffuse high signal in the white matter representing post treatment change is essentially stable. There is no midline shift. No hydrocephalus is seen. There is no extra-axial collection. IMPRESSION: Increasing enhancing tumor now seen in the left temporal lobe, corpus callosum and occipital lobes as discussed above compared to prior study of 02/11/2019. Chronic areas of petechial hemorrhage are again seen, with a new area of hemorrhage in the right corpus callosum measuring about 13 x 6 mm, and a new petechial hemorrhage in the superior left parietal region medially. Electronically Signed by Richard Damon MD 02/22/2019 08:43 A
--- NOTE | 2019-02-22 11:19 | CR ---
DATE OF CONSULTATION: 02/22/2016 REFERRING PHYSICIAN: Dr. Urban Gann. REASON FOR CONSULTATION: Seizures and recurrent malignant glioma/glioblastoma. HISTORY OF PRESENT ILLNESS: Ottoniel Babcock is a 44-year-old man with a history of recurrent glioblastoma which was surgically resected initially in 2013 and patient went through chemotherapy and radiation therapy. He was admitted at [facility] in January 2019 with current seizures. His MRI scan of the brain at that time showed possible recurrence and increase in size of his glioma. He stayed in the hospital for several days. He was discharged home and followed with his neurosurgeon and oncologist in [place] on an outpatient basis. They were planning to do a PET scan and outpatient chemotherapy. This was being planned and he was hospitalized again as he could not move his right side. He was hospitalized on 02/10/2019. He also had a couple of generalized seizures. He went to [facility] rehabilitation unit and had no seizures for the last 10 days until this morning. He started having right-sided partial seizures involving his face, arm and leg. He also had a grand mal seizure. Rapid response team was activated. Patient was given Ativan 2 mg intramuscular followed by two doses of 2 mg intravenously. Patient is currently sedated and unable to respond verbally or with physical stimuli. His partial seizure lasted for longer than half a hour. Even after getting Ativan initially, he continued to have right-sided facial switching and myoclonic jerks. This has now stopped. Patient was also loaded with 1000 mg if intravenous Dilantin followed by 2 mg of IV three times a day which can be changed to oral tablets. He will also have repeat MRI scan of the brain today. CT scan of his head showed increased hemorrhage inside the tumor. PAST MEDICAL HISTORY: Glioblastoma in 2014 status post surgery, chemoradiation therapy. Partial and generalized tonoclonic seizures. HOME MEDICATIONS: - Keppra 1250 mg by mouth twice a day - amlodipine 10 mg by mouth daily - methylphenidate 5 mg by mouth twice a day -Tylenol 325 mg by mouth every 4 hours as needed ALLERGIES: TEMOZOLOMIDE, which caused a rash and hives. SOCIAL HISTORY: He lives with his and children. There are no reports of smoking, alcohol or illicit drugs. FAMILY HISTORY: Noncontributory. REVIEW OF SYSTEMS: All systems reviewed with patient's and are found to be noncontributory except for as mentioned in the history of present illness. PHYSICAL EXAMINATION: Blood pressure this morning was 201/93, pulse 112, 93% saturations on 2 liters nasal cannula oxygen. HEART: Regular rate and rhythm. LUNGS: Clear to auscultation. ABDOMEN: Soft, nontender, nondistended. EXTREMITIES: No pedal edema. No musculoskeletal abnormalities. SKIN: No rash. NEURO: No signs of meningeal irritation. No tremor or dysmetria. Patient is currently sedated and unresponsive. He does not respond to verbal stimuli. He withdraws to pain all sides equally. He responds to sternal rub. Patient is nonverbal. His right plantar is upgoing. Details of free motor and cerebellar testing could not be performed. ASSESSMENT: 1. Left-sided glioblastoma with recurrence. Patient is status post surgery, radiation and chemotherapy. 2. Partial and generalized tonoclonic seizures. 3. Partial status epilepticus. PLAN: 1. MRI brain with and without contrast. If it shows increase in the size of his tumor or increased hemorrhage, he can be transferred to neurosurgery in [place]. 2. Dilantin 1000 mg IV times one followed by 200 mg three times a day. This can be changed to Vimpat if patient has more chemotherapy planned. Dilantin can lower effectiveness of chemotherapy and Vimpat will not. 3. Keppra 1250 mg by mouth twice a day. 4. Seizure precautions including no driving.
== END 2019-02-21 20:01 | disposition short-term general hospital (02) ==
LOC: UNDOADMIN 09:25 → M ICU 09:25 → UNDOADMIN 09:39 → M ICU 09:39 → UNDOADMIN 09:40 → M ICU 09:40 → INTOOBSV 09:41 → UNDODISIN 20:01
PROVIDERS: ADMIT Internal Medicine; ATTEND Internal Medicine
DX: C71.2 Malignant neoplasm of temporal lobe (principal); C71.8 Malignant neoplasm of overlapping sites of brain; C71.4 Malignant neoplasm of occipital lobe; G40.411 Other generalized epilepsy and epileptic syndromes, intractable, with status epilepticus; G83.84 Todd's paralysis (postepileptic); I61.9 Nontraumatic intracerebral hemorrhage, unspecified; I10 Essential (primary) hypertension; Z79.899 Other long term (current) drug therapy; Z88.8 Allergy status to other drugs, medicaments and biological substances; Z98.890 Other specified postprocedural states; Z92.21 Personal history of antineoplastic chemotherapy; Z92.3 Personal history of irradiation
CPT/HCPCS: 36415; 70553; 80053; 83605; 85027; 96374; 96375; A9576; G0378; J1100; J1165; J2060